=== PATIENT | female | born 1980 | race Caucasian/White ===

== ENCOUNTER 2020-06-15 09:59 | Inpatient (IN) | payer MEDICARE, MEDICAID, SELFPAY ==
--- NOTE | ~2020-06-15 | US_ITS ---
EXAMINATION: US ABDOMEN COMPLETE CLINICAL INFORMATION: Distended abdomen. COMPARISON: None TECHNIQUE: Real-time imaging of the abdominal viscera. FINDINGS: PANCREAS: Normal. ABDOMINAL AORTA: The proximal, mid, and distal segments are normal in caliber. INFERIOR VENA CAVA: Visualized portions are normal. LIVER: The liver is normal in size. The liver contour is normal. Parenchymal echogenicity is increased. No focal hepatic lesion. There is no intrahepatic biliary duct dilatation seen. GALLBLADDER: Normal. The gallbladder is physiologically distended without evidence of stones, sludge, polyps, wall thickening or pericholecystic fluid. COMMON BILE DUCT: Normal in caliber measuring 0.37 cm in diameter. RIGHT KIDNEY: Normal. No hydronephrosis. No renal calculi or focal parenchymal lesions. The kidney measures 13.2 cm in maximum dimension. LEFT KIDNEY: Normal. No hydronephrosis. No renal calculi or focal parenchymal lesions. The kidney measures 12.3 cm in maximum dimension. SPLEEN: Normal. The spleen measures 11.3 cm in maximum dimension. There is a small accessory splenule noted. FREE FLUID: None. US/US abdomen complete IMPRESSION: 1. Hepatic steatosis without any focal lesion. 2. The rest of the abdominal ultrasound is unremarkable.
--- NOTE | ~2020-06-15 | US_ITS ---
EXAMINATION: PELVIC ULTRASOUND CLINICAL INFORMATION: Pelvic pain. Rule out ovarian cyst. COMPARISON: None TECHNIQUE: Transabdominal and transvaginal pelvic ultrasound was performed. Transvaginal exam was performed for better visualization of the uterus and ovaries. FINDINGS: Exam is limited due to patient body habitus. The uterus is anteverted and retroflexed and measures 11.8 x 4.8 x 5.6 cm in dimension. No focal uterine lesion is seen. Endometrial thickness is normal measuring 0.8 cm. There are nabothian cysts in the cervix. The ovaries are normal-appearing. The right ovary measures 2.8 x 1.6 x 1.8 cm and the left ovary measures 1.9 x 1.1 x 1.7 cm. There is no fluid in the pelvis. US/US transvaginal IMPRESSION: Limited but unremarkable pelvic ultrasound.
--- NOTE | ~2020-06-15 | US_ITS ---
EXAMINATION: PELVIC ULTRASOUND CLINICAL INFORMATION: Pelvic pain. Rule out ovarian cyst. COMPARISON: None TECHNIQUE: Transabdominal and transvaginal pelvic ultrasound was performed. Transvaginal exam was performed for better visualization of the uterus and ovaries. FINDINGS: Exam is limited due to patient body habitus. The uterus is anteverted and retroflexed and measures 11.8 x 4.8 x 5.6 cm in dimension. No focal uterine lesion is seen. Endometrial thickness is normal measuring 0.8 cm. There are nabothian cysts in the cervix. The ovaries are normal-appearing. The right ovary measures 2.8 x 1.6 x 1.8 cm and the left ovary measures 1.9 x 1.1 x 1.7 cm. There is no fluid in the pelvis. US/US pelvic complete IMPRESSION: Limited but unremarkable pelvic ultrasound.
[2020-06-15 10:41] LABS: Glucose Urine UA NEG (NEG); Leukocyte Esterase Urine NEG (NEG); Nitrite Urine NEG (NEG); PH 6.5 (5.0-8.0); Urine Blood NEG (NEG); Urine Ketones NEG (NEG); Urine Protein NEG (NEG-TRACE)
[2020-06-15 10:43] LABS: Appearance Urine CLEAR; Color Urine STRAW; UPreg QC Valid YES; Urine Pregnancy NEGATIVE (NEGATIVE)
[2020-06-15 10:51] LABS: RBC Urine 0 /HPF (0); Squamous Epithelial Cell Urine 1+ /LPF; WBC Urine 0 /HPF (0-4)
[2020-06-15 10:52] LABS: Mucus Urine TRACE /LPF
[2020-06-15 11:28] VITALS: BP 199/98; PULSE 123; RESP 18; TEMP 36.8; O2SAT 97; BMI 42.0
--- NOTE | 2020-06-15 11:50 | ED.ABDPAIN ---
HPI - Abdominal Pain General Chief Complaint: Abdominal Pain Stated Complaint: ABD PAIN Time Seen by Provider: 06/15/20 11:15 Source: patient Mode of arrival: ambulatory Limitations: no limitations History of Present Illness HPI narrative: 39 yo female with past medical history of hashimotos disease, bipolar disease here with complaints of lower abdominal cramping described as contractions which have been going on for several days. No nasuea, vomiting, diarrhea, urinary symptoms, fevers, chills or vaginal discharge. Patient is concerned for . She tells me that she and her boyfriend are sexually active and they do not use contraception. Her last menses was 5 days ago however and she has had regular menses every month. MD elicited complaint: abdominal pain Related Data Allergies Allergy/AdvReac Type Severity Reaction Status Date / Time Sulfa (Sulfonamide Allergy Unknown RASH Verified 06/15/20 11:41 Antibiotics) [Sulfa (Sulfonamides)] Review of Systems Review of Systems Yes all other systems are reviewed and are negative Constitutional: Reports no additional constitutional complaints, Denies body ache(s), Denies chills, Denies fever(s), Denies headache(s) and Denies weakness Eyes: Reports no additional eye complaints and Denies change in vision Reports system reviewed and no additional complaints, except as documented, Denies dizziness, Denies headache(s), Denies nasal congestion, Denies nasal discharge and Denies neck pain Cardiovascular: Reports no additional cardiovascular complaints, Denies chest pain, Denies leg edema and Denies dyspnea Respiratory: Reports no additional respiratory complaints, Denies cough and Denies dyspnea Gastrointestinal: Reports no additional gastrointestinal complaints, Reports abdominal pain (cramping ), Denies diarrhea, Denies nausea and Denies vomiting Genitourinary: Reports no additional female genitourinary complaints and Denies urinary incontinence Musculoskeletal: Reports no additional musculoskeletal complaints, Denies back pain, Denies arthralgias, Denies joint swelling, Denies neck pain, Denies numbness and Denies tingling Skin/Breast: Reports system reviewed and no additional complaints, except as docu and Denies rash Reports system reviewed and no additional complaints, except as documented, Denies Abnormal speech present, Denies dizziness, Denies headache(s), Denies numbness, Denies tingling and Denies weakness Physical Exam Vital Signs: Vital Signs: Last Vital Signs Temp 98.5 F 02/09/21 14:14 Pulse 105 H 06/15/20 15:45 Resp 20 06/15/20 15:45 BP 155/94 H 06/15/20 15:45 Pulse Ox 96 06/15/20 15:45 Body Mass Index 42.0 Const: General: anxious Orientation/consciousness: patient oriented x3 Limitations: no limitations HENMT: Head: Yes normal to inspection Ears: hearing grossly normal bilaterally General nose exam: Normal external nose present Face and sinus: Yes normal facial exam Mouth: Normal oral and palatal mucosa present Throat: Yes posterior oropharynx normal Eyes: General: appearance normal, both eyes and all related structures Pupils: Equal, round and reactive pupils present Neck: Neck: Yes normal visual inspection Chest: Chest palpation & inspection: normal inspection of the chest Resp: Effort & Inspection: normal respiratory effort Auscultation: clear to auscultation bilaterally Cardio: Rate: regular rate Rhythm: regular rhythm Peripheral pulses: Peripheral pulses 2+ throughout GI: Other: Obese, no rebound or guarding Unable to produce tenderness on exam Inspection: Yes normal to inspection Palpation (GI): Soft to palpation Auscultation: normal bowel sounds Back/Spine/Pelvis: Thoracic/Lumbar Spine: thoracic and lumbar spine normal to inspection Skin: General skin exam: no rashes or lesions noted Neuro: General: patient oriented x3, no focal motor deficits and normal sensation to monofilament Cranial nerves: Yes Equal, round and reactive pupils present Cognition (Neuro): normal cognition Speech: No Abnormal speech present Gait exam (Neuro): Normal gait present Motor exam (neuro): 5/5 motor strength present throughout Extrem: General: Yes normal to inspection Course Course Course Narrative: 39-year-old female with a past history of bipolar disease and Molly's disease here with complaints of feeling like she may be . She tells me that she has been having abdominal cramping described as contractions for the last few days and although her menses was 4 days ago she is concerned for . She has no other associated complaints. On arrival the patient is very anxious. She is tachycardic and hypertensive and continues to perseverate on the fact that she is . Her urine was negative however when I told the patient this she continues to tell me that she is and she does not believe the urine test and that she needs an ultrasound. I spoke with patient that we would like to check some labs however she declined this until she had an ultrasound done. Nursing spoke to partner who says the patient has been off of her medication for quite some time. She is post be taking medications for bipolar but has been noncompliant. She has been depressed lately. She has lost her job recently. She was hospitalized at [facility] 1 yr ago for similar presentation. When the patient was asked about this she tells us that a month ago her psychologist Dr. Afshin don discontinued her psychiatric medications. Will check ultrasound. Labs were ordered but patient continues to decline. At this time I am concerned that the patient may be decompensated and will need a crisis evaluation. This was discussed with Nursing and after ultrasound the plan is for patient to be seen by crisis. 1400-US unremarkable and NEGATIVE for . Refusing all labs. Unhappy with results. Continues to perseverate on . Very agitated and upset. Vital signs reflect this. Plan to re-asess. Crisis consult ordered. 1630-Repeat vital signs improved. Patient pending BHN. At this time I do not feel it is safe for the patient to leave before seeing crisis. There is additional concern from her family and partner. Section 12 placed on chart. 1700-Sign out to Stacia HERNÁNDEZ pending above. MDM - Abdominal Pain Medical Records Attestation: I reviewed the patient's medical records. Lab Data Attestation: I reviewed the patient's lab results. Labs: Lab Results 06/15/20 06/15/20 Range/Units 10:31 10:31 Urine Color STRAW Urine Appearance CLEAR Urine pH 6.5 (5.0-8.0) Ur Specific [place] 1.010 (1.005-1.025) Urine Protein NEG (NEG-TRACE) MG/DL Urine Glucose (UA) NEG (NEG) MG/DL Urine Ketones NEG (NEG) MG/DL Urine Blood NEG (NEG) Urine Nitrite NEG (NEG) Ur Leukocyte Esterase NEG (NEG) Urine RBC 0 (0) /HPF Urine WBC 0 (0-4) /HPF Ur Squamous Epith Cells 1+ /LPF Urine Bacteria NONE /LPF Urine Mucus TRACE /LPF Urine Test NEGATIVE (NEGATIVE) Urine Opiates Screen Not Detected (Not Detect) Ur Barbiturates Screen Not Detected (Not Detect) Ur Phencyclidine Scrn Not Detected (Not Detect) Ur Amphetamines Screen Not Detected (Not Detect) U Benzodiazepines Scrn Not Detected (Not Detect) Urine Cocaine Screen Not Detected (Not Detect) U Marijuana (THC) Screen Not Detected (Not Detect) Imaging Data pelvic US: Attestation: I personally reviewed and interpreted this imaging study as follows: Radiologist's impression: EXAMINATION: PELVIC ULTRASOUND CLINICAL INFORMATION: Pelvic pain. Rule out ovarian cyst. COMPARISON: None TECHNIQUE: Transabdominal and transvaginal pelvic ultrasound was performed. Transvaginal exam was performed for better visualization of the uterus and ovaries. FINDINGS: Exam is limited due to patient body habitus. The uterus is anteverted and retroflexed and measures 11.8 x 4.8 x 5.6 cm in dimension. No focal uterine lesion is seen. Endometrial thickness is normal measuring 0.8 cm. There are nabothian cysts in the cervix. The ovaries are normal-appearing. The right ovary measures 2.8 x 1.6 x 1.8 cm and the left ovary measures 1.9 x 1.1 x 1.7 cm. There is no fluid in the pelvis. US/US pelvic complete IMPRESSION: Limited but unremarkable pelvic ultrasound. Discharge Plan Discharge Clinical Impression: Bipolar disease, chronic PMFSH Past Medical History Attestation statement: The following information was validated with the patient. Source: old records reviewed and nursing notes reviewed Medical History Bipolar 1 disorder Molly's disease Social History Social History Smoked in Last 30 Days: No Use of substances other than those prescribed or required for medical reasons: No Any prior treatment program specific to substance use: No Advance Directives: No Advance Directives Information Provided: Yes
--- NOTE | 2020-06-15 11:51 | PC.NURSE ---
BOYFRIEND AARON [phone]
--- NOTE | 2020-06-15 12:11 | PC.NURSE ---
Addendum entered by Sanna Martínez RN 06/15/20 12:23: FRIEND AARON ALSO REPORTS NO SEXUAL INTERCOURSE WITH PT IN PAST 10 MONTHS. Original Note: PT REFUSING BLOODWORK IT WILL HURT THE BABY . SPOKE WITH AARON, WHO ACCOMPANIED HER TO ED TODAY. HE REPORTS HER HAVING STOPPED TAKING RXS FOR BIPOLAR SEVERAL MONTHS AGO, ALSO LOST HER JOB, INCREASED DEPRESSION, NO SI STATEMENTS MADE TO HIM, GAINED A LOT OF WEIGHT, BECOMING INCREASINGLY PARANOID AND AGITATED AT HOME. FATHER IS [facility] [employer] [phone]. PT TO GO TO ULTRASOUND, BECOMING AGITATED, INSISTING THAT OF CHILD IS IMMINENT.
[2020-06-15 12:43] LABS: Amphetamine Screen Urine Not Detected (Not Detect); Barbiturates, Urine Not Detected (Not Detect); Benzodiazepines Screen Urine Not Detected (Not Detect); Cannabinoid Screen Urine Not Detected (Not Detect); Cocaine Screen Urine Not Detected (Not Detect); Opiate Screen Urine Not Detected (Not Detect); Phencyclidine Screen Urine Not Detected (Not Detect)
--- NOTE | 2020-06-15 13:23 | PC.NURSE ---
PT TRANSFERRED TO POD
[2020-06-15 14:14] VITALS: BP 166/102; PULSE 138; RESP 20; TEMP 36.9; O2SAT 97
--- NOTE | 2020-06-15 14:19 | PC.NURSE ---
Pt transferred to pod from main ED. She states she is depsite all testing thus far being negative for . BETTY Garcia in pod to discuss findings with pt. Pt states that she disagrees with diagnostics and wants a second opinion. Plan is for ED physician to see pt.
--- NOTE | 2020-06-15 14:43 | PC.NURSE ---
ED transfer report faxed and receipt of fax confirmed with N.
--- NOTE | 2020-06-15 15:24 | PC.NURSE ---
Pt refuses blood draw at this time.
[2020-06-15 15:45] VITALS: BP 155/94; PULSE 105; RESP 20; O2SAT 96
--- NOTE | 2020-06-15 17:26 | PC.NURSE ---
With pts permission, boyfriend Sukhdev updated with current status. He expressed concern regarding her not being on her bipolar meds for a period of time.
--- NOTE | 2020-06-15 17:30 | MHC.CARE ---
CARE team contacted [facility] re: referral for crisis evaluation. Per [facility] supervisor lead refinery, no clinician will be available until after 10:30pm. CARE team unable to complete assessment before then, therefore pt will remain in [facility] awaiting [facility] evaluation.
--- NOTE | 2020-06-15 18:06 | PC.NURSE ---
Pt continues to decline having her her blood drawn.
[2020-06-15 19:46] LABS: MANUAL DIFF FLAG NO
[2020-06-15 19:47] LABS: Basophils Absolute Auto 0.1 X10*3/uL (0.0-0.2); Basophils Percent Auto 0.4 % (0-2); Eosinophils Absolute Auto 0.2 X10*3/uL (0.0-0.4); Eosinophils Percent Auto 1.8 % (0-4); Hematocrit 36.7 % (37-47); Hemoglobin 12.1 g/dl (12.0-16.0); Imm Gran Abs Auto 0.09 X10*3/uL (0.00-0.03); Imm Gran Pct Auto 0.7 % (0.0-0.4); Lymphocytes Absolute Auto 3.1 X10*3/uL (1.2-4.9); Lymphocytes Percent Auto 23.2 % (20-40); Mean Corpuscular Hemoglobin 26.6 pg (27.0-33.0); Mean Corpuscular Volume 80.7 fL (80-98); Mean Platelet Volume 10.3 fL (9.4-12.3); Monocytes Absolute Auto 0.8 X10*3/uL (0.1-1.2); Monocytes Percent Auto 5.8 % (2-11); Neutrophils Absolute Auto 9.2 X10*3/uL (2.0-8.3); Neutrophils Percent Auto 68.1 % (45-73); Platelet Count 341 X10*3/uL (160-400); Red Blood Count 4.55 X10*6/uL (4.20-5.50); Red Cell Distribution Width 16.8 % (11.0-16.0); White Blood Count 13.4 X10*3/uL (4.8-10.8)
--- NOTE | 2020-06-15 20:01 | MHC.MBSS ---
Patient agreed to have her lab drawn, lab drawn/pending results, patient on phone currently, no distress reported, will continue to monitor.
[2020-06-15 20:10] LABS: Anion Gap 14 (12-20); Blood Urea Nitrogen 14 mg/dL (9-16); Calcium 9.2 mg/dL (8.4-10.2); Carbon Dioxide 27 mmol/L (22-29); Chloride 100 mmol/L (96-108); Creatinine Clr Calc Pharmacy 99.9; Estimated Glomerular Filt Rate > 60; Glucose Random 121 mg/dL (60-115); Potassium 4.3 mmol/L (3.3-5.1); Sodium 137 mmol/L (135-145)
[2020-06-15 20:12] LABS: Alanine Aminotransferase 49 U/L (0-31); Albumin Level 4.3 g/dL (3.5-5.0); Alkaline Phosphatase 90 U/L (39-117); Aspartate Amino Transferase 26 U/L (5-31); Bilirubin Direct < 0.2 mg/dL (0.0-0.5); Bilirubin Total 0.3 mg/dL (0.0-1.0); Total Protein 7.2 g/dL (6.5-8.0)
[2020-06-15 20:33] LABS: HCG Quantitative < 2 mIU/mL; Thyroid Stimulating Hormone 5.18 uIU/mL (0.32-4.0)
[2020-06-16] VITALS: BP 166/96; PULSE 101; RESP 20; TEMP 36.5; O2SAT 97
[2020-06-16 06:00] VITALS: BP 160/94; PULSE 105; RESP 18; TEMP 36.6; O2SAT 97
[2020-06-16 09:21] VITALS: BP 173/98; PULSE 110; TEMP 36.2; O2SAT 96
--- NOTE | 2020-06-16 10:32 | PC.NURSE ---
alert and oriented, denies si/hi, understands that she is not and did not focus on this at all, states her abd is distende and has been having more bm's than usual for a while, pt has eaten mult sandwiches and also a breakfast and asked for more food, requested an upper abd u/s, ZOE Moran informed and ordered, awaiting BHN re eval, pt states she is unsure why she is in the POD as she came here for abd issues,
--- NOTE | 2020-06-16 17:55 | PC.NURSE ---
Pt met with BHN. Currently in room, calm and cooperative. No complaints at this time.
--- NOTE | 2020-06-16 20:16 | PC.NURSE ---
Patient in her room, sitting on her chair, snacking, patient continues to go to bathroom multiple times, no distress reported, in good behavioral control, will continue to monitor.
--- NOTE | 2020-06-16 23:46 | ECG_ITS ---
Test Reason : PLACEMENT Blood Pressure : / mmHG Vent. Rate : 090 BPM Atrial Rate : 090 BPM P-R Int : 148 ms QRS Dur : 092 ms QT Int : 368 ms P-R-T Axes : 050 022 041 degrees QTc Int : 450 ms Normal sinus rhythm Normal ECG When compared with ECG of 04-OCT-2013 07:57, No significant change was found Referred By: Lily Pham Electronically Signed By:OLIVER NAVAS MD
[2020-06-16 23:47] LABS: COVID-19 Test Negative (Negative); IDNOW Serial# 9DD0AD1C
[2020-06-17] VITALS: BP 153/96; PULSE 90; RESP 18; TEMP 36.5; O2SAT 97
--- NOTE | 2020-06-17 00:17 | PC.NURSE ---
Patient in and out of room multiple times, continues persevered on constipation, EKG completed per M5 request result negative, COVID swabbed/result negative/care team notified. Will continue to monitor.
[2020-06-17 03:16] VITALS: BP 174/96; PULSE 90; RESP 18; TEMP 36.4; O2SAT 98
[2020-06-17 03:26] VITALS: BP 174/96; PULSE 90
[2020-06-17] MEDS: clonazePAM 0.5 MG TABLET PO (03:26)
[2020-06-17] MEDS: Lithium Carbonate 300 MG TABLET PO (03:26)
[2020-06-17] MEDS: cloNIDine HCL 0.1 MG TABLET PO (03:26)
[2020-06-17 03:44] LABS: Lithium < 0.10 mmol/L (0.60-1.20)
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
[2020-06-17 06:40] VITALS: BP 142/74; PULSE 94; RESP 18; TEMP 36.6; O2SAT 97
--- NOTE | 2020-06-17 16:53 | P.HPPS_ITS ---
HPI Chief Complaint: Madhuri Sources of Information: patient interviewed, chart reviewed and crisis/core team assessment reviewed HPI Narrative: 39 yo female, hx of bipolar disorder, PTSD, LAURYN presents in ER with reports of abdominal pain, contraction-like pain and believed she may be pregna nt. Boyfriend reports pt has been depressed, paranoid and delusional. Pt reports this is not accurate. Reports tapering medications over the past 10 months during pandemic due to concerns about weight, feeling better without medication and remaining at home, taking care of the couples pets and having her life deliberately slow down so she can relax more. Pt reports feeling fatigue and exhaustion as she has gained 40lbs over the year. She thought she was and had a negative test at home-negative vaginal and abdominal US in the ER. She was in the ER for 2 days and is upset that her symptoms were not taken seriously and she was immediately taken to the POD. Reports argument with boyfriend the day before admission with break up of a 4 year relationship. Pt believes her family, his family are forcing him to demand she take meds. I am no good unless I am on medication. Possible precipitants: pandemic and daily structure change, father has moved to [place]. Pt reports med tapers have been careful, thoughtful and done with Dr. Booker. She asks for no new trials and will consider a return to medications on an individual basis. Past Psychiatric History: IP: 2011, 2017 OP: Dr. Afshin Prieto for psychopharmacolgy; Reports she stopped psychotherapy Medical Evaluation Reviewed: Yes [facility] Medical History (Updated 06/17/20 @ 17:47 by Lin Vilchis, BRENDA) Bipolar 1 disorder delivery delivered LAURYN (generalized anxiety disorder) Molly's disease PTSD (post-traumatic stress disorder) Family History: 2 murder-suicide attempts (maternal side), personality disorder Social History: Lives with boyfrienSukhdev khan and their dogs. Lost her job when the pandemic began-stays at home and cares for the dogs. Substance History: alcohol use on occasion. Denies hx of addiction. Trauma History: Yes Diagnostics Vital Signs (24Hr): Vital Signs - 24 hr 06/17/20 00:00 06/17/20 03:16 06/17/20 03:26 Temperature 97.7 F 97.6 F Pulse Rate 90 90 90 Respiratory Rate 18 18 Blood Pressure 153/96 H 174/96 H 174/96 H Pulse Oximetry 97 98 06/17/20 06:40 Temperature 97.9 F Pulse Rate 94 Respiratory Rate 18 Blood Pressure 142/74 H Pulse Oximetry 97 Body Mass Index 42.0 Labs Results: 06/15/20 19:32 06/15/20 19:32 Labs: Laboratory Results - last 48 hr 06/15/20 06/15/20 06/15/20 19:32 19:32 19:32 WBC 13.4 H RBC 4.55 Hgb 12.1 Hct 36.7 L MCV 80.7 MCH 26.6 L MCHC 33.0 RDW 16.8 H Plt Count 341 MPV 10.3 Immature Gran % (Auto) 0.7 H Neut % (Auto) 68.1 Lymph % (Auto) 23.2 [place] % (Auto) 5.8 Eos % (Auto) 1.8 Baso % (Auto) 0.4 Lymph # (Auto) 3.1 [place] # (Auto) 0.8 Eos # (Auto) 0.2 Baso # (Auto) 0.1 Abs Immat Gran (auto) 0.09 H Absolute Neuts (auto) 9.2 H Absolute Nucleated RBC 0.000 Nucleated RBC % (auto) 0.0 Sodium 137 Potassium 4.3 Chloride 100 Carbon Dioxide 27 Anion Gap 14 BUN 14 Creatinine 0.84 Estim Creat Clear Calc 99.9 Estimated GFR > 60 Random Glucose 121 H Calcium 9.2 Total Bilirubin 0.3 Direct Bilirubin < 0.2 AST 26 ALT 49 H Alkaline Phosphatase 90 Total Protein 7.2 Albumin 4.3 TSH 5.18 H Beta HCG, Quant < 2 [place] COVID-19 (SUE) COVID-19 Clin Com 06/16/20 06/17/20 23:18 03:17 WBC RBC Hgb Hct MCV MCH MCHC RDW Plt Count MPV Immature Gran % (Auto) Neut % (Auto) Lymph % (Auto) [place] % (Auto) Eos % (Auto) Baso % (Auto) Lymph # (Auto) [place] # (Auto) Eos # (Auto) Baso # (Auto) Abs Immat Gran (auto) Absolute Neuts (auto) Absolute Nucleated RBC Nucleated RBC % (auto) Sodium Potassium Chloride Carbon Dioxide Anion Gap BUN Creatinine Estim Creat Clear Calc Estimated GFR Random Glucose Calcium Total Bilirubin Direct Bilirubin AST ALT Alkaline Phosphatase Total Protein Albumin TSH Beta HCG, Quant [place] < 0.10 L COVID-19 (SUE) Negative COVID-19 Clin Com See Note Imaging Radiology Impressions: ITS Impressions Pelvis Ultrasound 06/15/20 12:32 IMPRESSION: Limited but unremarkable pelvic ultrasound. Transvaginal US 06/15/20 12:37 IMPRESSION: Limited but unremarkable pelvic ultrasound. Abdomen Ultrasound 06/16/20 09:59 IMPRESSION: 1. Hepatic steatosis without any focal lesion. 2. The rest of the abdominal ultrasound is unremarkable. Meds/Allergies Meds Home Medications Acetaminophen (Acetaminophen 325 Mg Tablet) 650 mg PO Q6H PRN PRN Reason: Headache/Pain Mild Scale (1-3) Al Hydroxide/Mg Hydroxide (Magnesium Hydrox/Alum Hydrox 30 Ml Oral.Susp) 30 ml PO Q6H PRN PRN Reason: Heartburn/Nausea Aripiprazole (Aripiprazole 10 Mg Tablet) 10 mg PO BEDTIME PRABHJOT Clonazepam (Clonazepam 0.5 Mg Tablet) 0.5 mg PO BID PRN PRN Reason: Anxiety Last Admin: 06/17/20 03:26 Dose: 0.5 mg Documented by: Clonidine HCl (Clonidine Hcl 0.1 Mg Tablet) 0.1 mg PO Q4H PRN; Protocol PRN Reason: hypertension Last Admin: 06/17/20 03:26 Dose: 0.1 mg Documented by: Diphenhydramine HCl (Diphenhydramine Hcl 25 Mg Tablet) 50 mg PO Q4H PRN PRN Reason: agitation Haloperidol (Haloperidol 5 Mg Tablet) 5 mg PO Q4H PRN PRN Reason: agitation Levothyroxine Sodium (Levothyroxine Sodium 88 Mcg Tablet) 88 mcg PO DAILY@0600 [facility] Last Admin: 06/17/20 10:53 Dose: Not Given Documented by: [place] Carbonate ([place] Carbonate 300 Mg Capsule) 600 mg PO BEDTIME PRABHJOT Lorazepam (Lorazepam 1 Mg Tablet) 2 mg PO Q4H PRN PRN Reason: agitation Magnesium Hydroxide (Milk Of Magnesia 30 Ml Oral.Susp) 30 ml PO DAILY PRN PRN Reason: Constipation Nicotine Polacrilex (Nicotine Polacrilex 2 Mg Gum) 4 mg BUCCAL Q2H PRN PRN Reason: Nicotine Cravings Trazodone HCl (Trazodone Hcl 50 Mg Tablet) 50 mg PO BEDTIME PRN PRN Reason: Insomnia Allergies Allergies Allergy/AdvReac Type Severity Reaction Status Date / Time Sulfa (Sulfonamide Allergy Unknown RASH Verified 06/15/20 11:41 Antibiotics) [Sulfa (Sulfonamides)] Mental Status Exam Mental Status Exam Patient Appearance: Fatigued and Appropriate Patient Orientation: Person, Place, Time and Situation Level of Consciousness: Awake, Appropriate and Alert Patient Behavior: Appropriate and Cooperative Mood Description: Anxious, Angry and Sad Affect Description: Flat Patient Cognition Impaired: No Ability to Follow Directions: Good Speech Pattern: Spontaneous Speech Memory Description: Intact Hallucinations: None Delusions: Being Controlled and Paranoid Ideation Thought Process: Goal Oriented Thought Content: positive for [place] and positive for Circumstantial Depressive Symptoms: Increased Anxiety and Increased Irritability Judgement: Fair Assessment & Plan Assessment & Plan (1) LAURYN (generalized anxiety disorder): Status: Acute Code(s): F41.1 - Generalized anxiety disorder (2) PTSD (post-traumatic stress disorder): Status: Acute Code(s): F43.10 - Post-traumatic stress disorder, unspecified (3) Bipolar 1 disorder: Status: Acute Code(s): F31.9 - Bipolar disorder, unspecified Assessment and Plan: Continue current plan of care. Pt will allow levothyroxine, wants no new trials and will consider psychopharmacology. (4) Gastrointestinal distress: Status: Acute Code(s): K30 - Functional dyspepsia Assessment and Plan: -Diagnostics are negative for GI disease. Will ask for a nutritional consult, ?IBS, ? Gluten sensitive. Patient educated on: medication risk/benefits Informed Consent: further education needed Reason for continued inpatient stay Substantial Risk for: inability to function and rapid decompensation
[2020-06-17 17:15] VITALS: BP 131/77; PULSE 97; TEMP 37.1
[2020-06-17 21:24] VITALS: BP 167/81; PULSE 97; TEMP 36.1
[2020-06-18 00:11] VITALS: BP 161/91; PULSE 96
[2020-06-18] MEDS: cloNIDine HCL 0.1 MG TABLET PO (00:11)
[2020-06-18 00:14] VITALS: BP 161/91; PULSE 96; RESP 18; TEMP 36.2; O2SAT 97
[2020-06-18 04:05] VITALS: BP 135/86; PULSE 90; RESP 18; TEMP 36.6; O2SAT 96
--- NOTE | 2020-06-18 12:03 | MHC.CLN ---
CONSULT HT 62 WT 230# IBW 110#+/-10% PT IS 209% IBW INDICATES MORBID OBESITY LABS 06/15/20: RG 121 DIET RX: REGULAR-APPROPRIATE PT COMPLAINS OF EXCESSIVE HUNGER, EXCESSIVE THIRST X 1 YEAR PT REPORTS SHE HAS ADDED DAIRY TO DIET OVER LAST YEAR WITHOUT ISSUE PT C/O 6-7 BM PER DAY; HAD ABDOMINAL CRAMPING BUT RESOLVED PT REPORTED 40# WT GAIN X 1 YEAR; STATED SHE WAS TESTED FOR DM BUT IS NEGATIVE PT REFUSED VERBAL DIET EDUCATION STATING, I KNOW HOW TO EAT RIGHT. NOTED DX JAYDEN DZ HOWEVER PT STATES SHE HAS STOPPED TAKING MEDS INCLUDING PSYCH MEDS THAT CAN INCREASE HUNGER OVER PAST YEAR PT RECEPTIVE TO IBS HANDOUT AND LACTOSE INTOLERANCE HANDOUT RD NAME GIVEN FOR FUTURE FOLLOW UP AND QUESTIONS
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
[2020-06-18 21:53] VITALS: BP 186/86; PULSE 96; TEMP 37.1; O2SAT 97
[2020-06-19 06:00] VITALS: BP 157/85; PULSE 100; TEMP 36.7; O2SAT 98
[2020-06-19 18:00] VITALS: RESP 16
--- NOTE | 2020-06-19 21:31 | PC.NURSE ---
[facility] called reporting that she was calling them
--- NOTE | 2020-06-19 21:44 | PC.NURSE ---
This typewriter ribbon winder attempted 3 times to get patient to allow vital signs to be taken; each time patient refused. Patient stated I wouldn't have a high blood pressure if I wasn't here in the hospital. Of course my pressures are going to be high, I don't want to be here . Patient refused her Abilify 10 mg po and [place] Carbonate 600 mg po that were scheduled for HS.
--- NOTE | 2020-06-19 22:21 | HO.PSYCHPN ---
Subjective Subjective Date of Service: 06/21/20 Reason For Visit: Madhuri Subjective Notes: 3 Day Interim History: Met with patient who expressed frustration and anxiety for admission. Pt repeatedly asked why she was admitted and had difficulty accepting that typewriter operator automatic did not know more of the story than was documented in chart. Pt shared that her boyfriend has been influenced by his family to see her as psychiatrically ill. She says that family found out she'd stopped taking medications, overreacted and pushed her boyfriend into believing that she needed inpt admission. Regarding her belief she's , Pt explained the various reasons she thought she was (gained 40bls; had neg UPT during last ); she seems to imply she now realizes that she's not but says either way, this should not be enough of a reason for her to be sent to a psych unit. Pt continued to ask why she's been admitted and that it is very unfair for hospital to just take the word of her boyfriend. Proposal Engineer offered pt 3 day notice, but she declined saying the last time she signed one (2007) she ended up being involuntarily committed. She denies any hx of SI; she denies AVH. She acknowledges depression but says mostly due to being locked on unit. Pt reports she was diagnosed with Bipolar disorder in 2007 but in hindsight, she thinks her behaviors were more likely attributed to hx of trauma. She wanted to get off meds to see how her body would handle it and she says she's been fine. However, pt reports that over the past month, she's had a high libido and would masturbate several times a day; she also alludes to some poor sleep, saying she's up at night eating, but also says she was sleeping well over past months too. Pt asked if typewriter operator automatic would call her boyfriend to find out his reasoning, to which typewriter operator automatic agreed. However, later on in day, pt said she wanted to listen in on conversation. Proposal Engineer then explained it would be best for patient and treatment team to have a family meeting next week. Pt was ambivalent about this but accepted this plan. She reports poor sleep last night saying it's due to being uncomfortable on unit. typewriter operator automatic discussed HtN and pt said she'd take anti-hypertensives; however despite dx of Molly's, she does not want to restart levothyroxine Medication Compliance: No Attending Groups: Yes Mental Status Exam Mental Status Exam Patient Appearance: Appropriate Patient Orientation: Person, Place and Time Level of Consciousness: Awake and Appropriate Patient Behavior: Anxious and Good Eye Contact Mood Description: Anxious Affect Description: Anxious Ability to Follow Directions: Fair Speech Pattern: Clear and Appropriate Hallucinations: None Delusions: Present (not sure to what degree pt believes she's ) Thought Process: Rumination and Goal Oriented Thought Content: positive for Perseveration (on unfairness of admission) Judgement: Poor Diagnostics Vital Signs (24Hr): Vital Signs - 24 hr 06/19/20 06:00 06/19/20 18:00 Temperature 98.1 F Pulse Rate 100 Respiratory Rate 16 Blood Pressure 157/85 H Pulse Oximetry 98 Body Mass Index 42.0 Labs Results: 06/15/20 19:32 06/15/20 19:32 Imaging Radiology Impressions: ITS Impressions Pelvis Ultrasound 06/15/20 12:32 IMPRESSION: Limited but unremarkable pelvic ultrasound. Transvaginal US 06/15/20 12:37 IMPRESSION: Limited but unremarkable pelvic ultrasound. Abdomen Ultrasound 06/16/20 09:59 IMPRESSION: 1. Hepatic steatosis without any focal lesion. 2. The rest of the abdominal ultrasound is unremarkable. Medications Medications Current Medications Generic Name Dose Route Start Last Admin Trade Name Freq PRN Reason Stop Dose Admin Acetaminophen 650 mg 06/17/20 02:58 Acetaminophen 325 Mg Tablet PO Q6H PRN Headache/Pain Mild Scale (1-3) Al Hydroxide/Mg Hydroxide 30 ml 06/17/20 02:58 Magnesium Hydrox/Alum Hydrox 30 Ml Oral.Susp PO Q6H PRN Heartburn/Nausea Aripiprazole 10 mg 06/17/20 21:00 06/19/20 21:42 Aripiprazole 10 Mg Tablet PO Not Given BEDTIME PRABHJOT Clonazepam 0.5 mg 06/17/20 02:58 06/17/20 03:26 Clonazepam 0.5 Mg Tablet PO 0.5 mg BID PRN Administration Anxiety Clonidine HCl 0.1 mg 06/17/20 02:58 06/18/20 00:11 Clonidine Hcl 0.1 Mg Tablet PO 0.1 mg Q4H PRN Administration hypertension Protocol Diphenhydramine HCl 50 mg 02/11/21 02:58 Diphenhydramine Hcl 25 Mg Tablet PO Q4H PRN agitation Haloperidol 5 mg 06/17/20 02:58 Haloperidol 5 Mg Tablet PO Q4H PRN agitation Levothyroxine Sodium 88 mcg 06/17/20 06:00 06/19/20 06:38 Levothyroxine Sodium 88 Mcg Tablet PO Not Given DAILY@0600 PRABHJOT [place] Carbonate 600 mg 06/17/20 21:00 06/19/20 21:42 [place] Carbonate 300 Mg Capsule PO Not Given BEDTIME PRABHJOT Lorazepam 2 mg 06/17/20 02:58 Lorazepam 1 Mg Tablet PO Q4H PRN agitation Magnesium Hydroxide 30 ml 06/17/20 02:58 Milk Of Magnesia 30 Ml Oral.Susp PO DAILY PRN Constipation Nicotine Polacrilex 4 mg 06/17/20 02:58 Nicotine Polacrilex 2 Mg Gum BUCCAL Q2H PRN Nicotine Cravings Trazodone HCl 50 mg 06/17/20 02:58 Trazodone Hcl 50 Mg Tablet PO BEDTIME PRN Insomnia Allergies Allergies Allergy/AdvReac Type Severity Reaction Status Date / Time Sulfa (Sulfonamide Allergy Unknown RASH Verified 06/15/20 11:41 Antibiotics) [Sulfa (Sulfonamides)] Assessment & Plan Impression: pt with his of mood disorder. Pt is perseverant on unfairness of admission and struggles to accept writers answers. However, she remains logical and linear. She denies SI, AVH and is overall organized in behaviors. She seems to imply she now realizes she's not , but this is not clear. It is unclear what other behaviors occurred prior to admission to result in admission to unit and collateral will be important. Pt wants typewriter operator automatic to obtain collateral from boyfriend but is anxious that typewriter operator automatic will believe him, even if he lies, over her; typewriter operator automatic acknowledges her anxiety over this and suggests team planned family meeting, to which pt accepts. dx provisional dx bipolar disorder ptsd LAURYN by history plan: continue current tx plan pt offered 3 day notice, but has not signed primary team to discuss family meeting Greater than 50% of the session was spent on counseling and/or coordination of care Reason for contiued inpatient stay Substantial Risk for: med/psych decompensation
[2020-06-20 06:40] VITALS: BP 165/68; PULSE 89; RESP 16; TEMP 36.6; O2SAT 97
--- NOTE | 2020-06-20 11:03 | HO.PSYCHPN ---
Subjective Subjective Date of Service: 06/21/20 Reason For Visit: Madhuri Subjective Notes: 3 Day Interim History: Pt reports sleeping last night Pt lying in bed. She asks marketing copywriter to call her boyfriend but wants to be able to listen to conversation while its happening. Director Of Event Management explains that this may impede boyfriend from sharing and that if she wants to be involved, marketing copywriter will defer to primary team to set up family meeting. Pt was upset with this answer and repeatedly asked why and cited the unfairness. Pt would not accept any answer marketing copywriter gave but continued to ask why; she would also return to why she is on unit in first place but again, would not accept any answer marketing copywriter offered. Director Of Event Management eventually decided it was best to end discussion for the time being. An hour later, pt came to desk to ask marketing copywriter to call boyfriend and said she'd agree to sign a TRAVIS. However, once reading the TRAVIS she said she would not sign and again repeatedly attempted to engage marketing copywriter in circular discussion of why marketing copywriter would not have family meeting with boyfriend now. Director Of Event Management again decided it best to end conversation. Medication Compliance: No Attending Groups: No Mental Status Exam Mental Status Exam Narrative: Patient Appearance: Appropriate Patient Orientation: Person, Place and Time Level of Consciousness: Awake and Appropriate Patient Behavior: Anxious and Good Eye Contact Mood Description: Anxious Affect Description: Anxious Ability to Follow Directions: Fair Speech Pattern: Clear and Appropriate Hallucinations: None Delusions: Present (not sure to what degree pt believes she's ) Thought Process: Rumination and Goal Oriented Thought Content: positive for Perseveration (on unfairness of admission) Judgement/insight: Poor Diagnostics Vital Signs (24Hr): Vital Signs - 24 hr 06/19/20 18:00 06/20/20 06:40 Temperature 98 F Pulse Rate 89 Respiratory Rate 16 16 Blood Pressure 165/68 H Pulse Oximetry 97 Body Mass Index 42.0 Labs Results: 06/15/20 19:32 06/15/20 19:32 Imaging Radiology Impressions: ITS Impressions Pelvis Ultrasound 06/15/20 12:32 IMPRESSION: Limited but unremarkable pelvic ultrasound. Transvaginal US 06/15/20 12:37 IMPRESSION: Limited but unremarkable pelvic ultrasound. Abdomen Ultrasound 06/16/20 09:59 IMPRESSION: 1. Hepatic steatosis without any focal lesion. 2. The rest of the abdominal ultrasound is unremarkable. Medications Medications Current Medications Generic Name Dose Route Start Last Admin Trade Name Freq PRN Reason Stop Dose Admin Acetaminophen 650 mg 06/17/20 02:58 Acetaminophen 325 Mg Tablet PO Q6H PRN Headache/Pain Mild Scale (1-3) Al Hydroxide/Mg Hydroxide 30 ml 06/17/20 02:58 Magnesium Hydrox/Alum Hydrox 30 Ml Oral.Susp PO Q6H PRN Heartburn/Nausea Aripiprazole 10 mg 06/17/20 21:00 06/19/20 21:42 Aripiprazole 10 Mg Tablet PO Not Given BEDTIME PRABHJOT Clonazepam 0.5 mg 06/17/20 02:58 06/17/20 03:26 Clonazepam 0.5 Mg Tablet PO 0.5 mg BID PRN Administration Anxiety Clonidine HCl 0.1 mg 06/17/20 02:58 06/18/20 00:11 Clonidine Hcl 0.1 Mg Tablet PO 0.1 mg Q4H PRN Administration hypertension Protocol Diphenhydramine HCl 50 mg 06/17/20 02:58 Diphenhydramine Hcl 25 Mg Tablet PO Q4H PRN agitation Haloperidol 5 mg 06/17/20 02:58 Haloperidol 5 Mg Tablet PO Q4H PRN agitation Levothyroxine Sodium 88 mcg 06/17/20 06:00 06/20/20 06:35 Levothyroxine Sodium 88 Mcg Tablet PO Not Given DAILY@0600 PRABHJOT [place] Carbonate 600 mg 06/17/20 21:00 06/19/20 21:42 [place] Carbonate 300 Mg Capsule PO Not Given BEDTIME PRABHJOT Lorazepam 2 mg 06/17/20 02:58 Lorazepam 1 Mg Tablet PO Q4H PRN agitation Magnesium Hydroxide 30 ml 06/17/20 02:58 Milk Of Magnesia 30 Ml Oral.Susp PO DAILY PRN Constipation Nicotine Polacrilex 4 mg 06/17/20 02:58 Nicotine Polacrilex 2 Mg Gum BUCCAL Q2H PRN Nicotine Cravings Trazodone HCl 50 mg 06/17/20 02:58 Trazodone Hcl 50 Mg Tablet PO BEDTIME PRN Insomnia Allergies Allergies Allergy/AdvReac Type Severity Reaction Status Date / Time Sulfa (Sulfonamide Allergy Unknown RASH Verified 06/15/20 11:41 Antibiotics) [Sulfa (Sulfonamides)] Assessment & Plan Impression: pt with his of mood disorder. Pt is perseverant on unfairness of admission and struggles to accept writers answers. However, she remains logical and linear. She denies SI, AVH and is overall organized in behaviors. She seems to imply she now realizes she's not , but this is not clear. It is unclear what other behaviors occurred prior to admission to result in admission to unit and collateral will be important. Pt wants marketing copywriter to obtain collateral from boyfriend but is anxious that marketing copywriter will believe him, even if he lies, over her; marketing copywriter acknowledges her anxiety over this and suggests team planned family meeting. Pt remains frustrated and focused on unfairness of admission dx provisional dx bipolar disorder ptsd LAURYN by history plan: continue current tx plan pt offered 3 day notice, but has not signed primary team to discuss family meeting Greater than 50% of the session was spent on counseling and/or coordination of care Reason for contiued inpatient stay Substantial Risk for: med/psych decompensation
[2020-06-20 18:00] VITALS: RESP 16
[2020-06-21 04:50] VITALS: RESP 18
--- NOTE | 2020-06-21 18:16 | HO.PSYCHPN ---
Subjective Subjective Date of Service: 06/21/20 Reason For Visit: Madhuri Interim History: Pt reports she slept fairly well last night pt remains perseverant on unfairness of admission and cannot tolerate discussion of much else. She accepts that she'll need to discuss this with her primary team tomorrow. pt upset toward roommate today who was playing loud music. Roommate changed rooms Medication Compliance: No Attending Groups: No Mental Status Exam Mental Status Exam Narrative: Patient Appearance: Appropriate Patient Orientation: Person, Place and Time Level of Consciousness: Awake and Appropriate Patient Behavior: Anxious and Good Eye Contact Mood Description: Anxious Affect Description: Anxious Ability to Follow Directions: Fair Speech Pattern: Clear and Appropriate Hallucinations: None Delusions: Present (not sure to what degree pt believes she's ) Thought Process: Rumination and Goal Oriented Thought Content: positive for Perseveration (on unfairness of admission) Judgement/insight: Poor Diagnostics Vital Signs (24Hr): Vital Signs - 24 hr 06/21/20 04:50 Respiratory Rate 18 Body Mass Index 42.0 Labs Results: 06/15/20 19:32 06/15/20 19:32 Imaging Radiology Impressions: ITS Impressions Pelvis Ultrasound 06/15/20 12:32 IMPRESSION: Limited but unremarkable pelvic ultrasound. Transvaginal US 06/15/20 12:37 IMPRESSION: Limited but unremarkable pelvic ultrasound. Abdomen Ultrasound 06/16/20 09:59 IMPRESSION: 1. Hepatic steatosis without any focal lesion. 2. The rest of the abdominal ultrasound is unremarkable. Medications Medications Current Medications Generic Name Dose Route Start Last Admin Trade Name Freq PRN Reason Stop Dose Admin Acetaminophen 650 mg 06/17/20 02:58 Acetaminophen 325 Mg Tablet PO Q6H PRN Headache/Pain Mild Scale (1-3) Al Hydroxide/Mg Hydroxide 30 ml 06/17/20 02:58 Magnesium Hydrox/Alum Hydrox 30 Ml Oral.Susp PO Q6H PRN Heartburn/Nausea Aripiprazole 10 mg 06/17/20 21:00 06/20/20 22:17 Aripiprazole 10 Mg Tablet PO Not Given BEDTIME PRABHJOT Clonazepam 0.5 mg 06/17/20 02:58 06/17/20 03:26 Clonazepam 0.5 Mg Tablet PO 0.5 mg BID PRN Administration Anxiety Clonidine HCl 0.1 mg 06/17/20 02:58 06/18/20 00:11 Clonidine Hcl 0.1 Mg Tablet PO 0.1 mg Q4H PRN Administration hypertension Protocol Diphenhydramine HCl 50 mg 06/17/20 02:58 Diphenhydramine Hcl 25 Mg Tablet PO Q4H PRN agitation Haloperidol 5 mg 06/17/20 02:58 Haloperidol 5 Mg Tablet PO Q4H PRN agitation Levothyroxine Sodium 88 mcg 06/17/20 06:00 06/21/20 09:51 Levothyroxine Sodium 88 Mcg Tablet PO Not Given DAILY@0600 PRABHJOT [place] Carbonate 600 mg 06/17/20 21:00 06/20/20 22:17 [place] Carbonate 300 Mg Capsule PO Not Given BEDTIME PRABHJOT Lorazepam 2 mg 06/17/20 02:58 Lorazepam 1 Mg Tablet PO Q4H PRN agitation Magnesium Hydroxide 30 ml 06/17/20 02:58 Milk Of Magnesia 30 Ml Oral.Susp PO DAILY PRN Constipation Nicotine Polacrilex 4 mg 06/17/20 02:58 Nicotine Polacrilex 2 Mg Gum BUCCAL Q2H PRN Nicotine Cravings Trazodone HCl 50 mg 06/17/20 02:58 Trazodone Hcl 50 Mg Tablet PO BEDTIME PRN Insomnia Allergies Allergies Allergy/AdvReac Type Severity Reaction Status Date / Time Sulfa (Sulfonamide Allergy Unknown RASH Verified 06/15/20 11:41 Antibiotics) [Sulfa (Sulfonamides)] Assessment & Plan Impression: pt with his of mood disorder. Pt is perseverant on unfairness of admission and struggles to accept writers answers. However, she remains logical and linear. She denies SI, AVH and is overall organized in behaviors. She seems to imply she now realizes she's not , but this is not clear. It is unclear what other behaviors occurred prior to admission to result in admission to unit and collateral will be important. Pt wants tech writer to obtain collateral from boyfriend but is anxious that tech writer will believe him, even if he lies, over her; tech writer acknowledges her anxiety over this and suggests team planned family meeting. Pt remains frustrated and focused on unfairness of admission dx provisional dx bipolar disorder ptsd LAURYN by history plan: continue current tx plan pt offered 3 day notice, but has not signed primary team to discuss family meeting Greater than 50% of the session was spent on counseling and/or coordination of care Reason for contiued inpatient stay Substantial Risk for: med/psych decompensation
--- NOTE | 2020-06-22 18:20 | P.PNPSI_ITS ---
Subjective Subjective Date of Service: 06/22/20 Reason For Visit: Madhuri Subjective Notes: Conditional Voluntary Interim History: - Met with Amparo [place] ANDA and underwriter. Continues to refuse treatment, medications. -Has consulted with legal services. -Has called police twice over the weekend to do a wellness check on her daughter, who ex- has joint custody of as he has limited contact with pt due to her admission. Discussed with pt's out patient MD, Dr. Booker. Pt tapered [place] over the past several months in a careful slow pattern with supervision. Pt decided to stop Abilify on her own without Dr. Villanueva knowledge. Pt has claimed to be feeling well. Family has not contacted Dr. Booker with concerns. Pt had asked for a meeting with partner which was scheduled however pt cancelled this. By history pt is unable to work due to illness, she becomes paranoid quickly and seems to have severed her most important relationships. When well she is described as reasonable and rational. Dr. Afshin Prieto believes pt is at high risk for suicide- by history she has engaged in risky behaviors that have jeopardized her safety. -Reviewed with pt. -Confrontational as to why she was admitted. -Collateral contact today with pt's psychiatrist, Dr. Afshin Prieto, reviewed along with concerns for her safety and well-being. Pt is dismissive, paranoid and unable to have a balanced discussion-states PTSD is exacerbated-pt's curse at her, accused team of false documentation , believes there will be a superior court judge who is an impersonator of a superior court judge-like the one she had for custody hearing and the one she had for previous civil commitment. Believes bipolar diagnosis is incorrect, previous admissions for treatment are false and that she is being controlled without options. Refuses medicines, treatment, refuses to sign a three day notice. Agrees to a couples meeting which Amparo DE ANDA will schedule for 06/23 (ex-partner works late on weekdays). Discussed room-mate reporting pt is purging-pt denies this sx. Review of Systems Gastrointestinal: Reports other (denies current symptoms) Genitourinary: Reports change in libido Reports behavioral changes Psychiatric: Reports abnormal sleep pattern, Reports anxiety, Reports behavioral changes, Reports change in appetite, Reports change in libido, Reports depression, Reports difficulty concentrating, Reports hopelessness, Reports irritability, Reports anhedonia, Reports mood swings and Reports paranoia Endocrine: Reports change in libido Mental Status Exam Mental Status Exam Patient Appearance: Appropriate Patient Orientation: Person, Place, Time and Situation Level of Consciousness: Awake and Alert Patient Behavior: Guarded, Talkative, Suspicious, Restless, Anxious, Fearful, Resistive to Care, Avoidant, Fatigued, Distractible, Isolative, Good Eye Contact and Uncooperative Mood Description: Suspicious, Depressed, Anxious, Angry and Apprehensive Affect Description: Labile Patient Cognition Impaired: Yes Ability to Follow Directions: Poor Speech Pattern: Perseverating, Spontaneous Speech and Pressured Memory Description: Episodic Impaired Hallucinations: None Delusions: Being Controlled and Paranoid Ideation Thought Process: Racing, Illogical, Distracted, Rumination, Goal Oriented and Linear Thought Content: positive for Circumstantial Depressive Symptoms: Increased Anxiety, Increased Irritability, Difficulty Sleeping, Changes in Appetite, Loss of Int. in Activity, Unexplained Stomach Pain and Difficulty Concentrating Abnormal Motor Activity Signs and Symptoms: Restlessness Judgement: Poor Diagnostics Vital Signs (24Hr): Body Mass Index 42.0 Labs Results: 06/15/20 19:32 06/15/20 19:32 Imaging Radiology Impressions: ITS Impressions Pelvis Ultrasound 06/15/20 12:32 IMPRESSION: Limited but unremarkable pelvic ultrasound. Transvaginal US 06/15/20 12:37 IMPRESSION: Limited but unremarkable pelvic ultrasound. Abdomen Ultrasound 06/16/20 09:59 IMPRESSION: 1. Hepatic steatosis without any focal lesion. 2. The rest of the abdominal ultrasound is unremarkable. Medications Medications Current Medications Generic Name Dose Route Start Last Admin Trade Name Jhonyq PRN Reason Stop Dose Admin Acetaminophen 650 mg 06/17/20 02:58 Acetaminophen 325 Mg Tablet PO Q6H PRN Headache/Pain Mild Scale (1-3) Al Hydroxide/Mg Hydroxide 30 ml 06/17/20 02:58 Magnesium Hydrox/Alum Hydrox 30 Ml Oral.Susp PO Q6H PRN Heartburn/Nausea Aripiprazole 10 mg 06/17/20 21:00 06/21/20 20:09 Aripiprazole 10 Mg Tablet PO Not Given BEDTIME PRABHJOT Clonidine HCl 0.1 mg 06/17/20 02:58 06/18/20 00:11 Clonidine Hcl 0.1 Mg Tablet PO 0.1 mg Q4H PRN Administration hypertension Protocol Diphenhydramine HCl 50 mg 06/17/20 02:58 Diphenhydramine Hcl 25 Mg Tablet PO Q4H PRN agitation Haloperidol 5 mg 06/17/20 02:58 Haloperidol 5 Mg Tablet PO Q4H PRN agitation Levothyroxine Sodium 88 mcg 06/17/20 06:00 06/22/20 08:36 Levothyroxine Sodium 88 Mcg Tablet PO Not Given DAILY@0600 PRABHJOT [place] Carbonate 600 mg 06/17/20 21:00 06/21/20 20:09 [place] Carbonate 300 Mg Capsule PO Not Given BEDTIME PRABHJOT Magnesium Hydroxide 30 ml 06/17/20 02:58 Milk Of Magnesia 30 Ml Oral.Susp PO DAILY PRN Constipation Nicotine Polacrilex 4 mg 06/17/20 02:58 Nicotine Polacrilex 2 Mg Gum BUCCAL Q2H PRN Nicotine Cravings Trazodone HCl 50 mg 06/17/20 02:58 Trazodone Hcl 50 Mg Tablet PO BEDTIME PRN Insomnia Allergies Allergies Allergy/AdvReac Type Severity Reaction Status Date / Time Sulfa (Sulfonamide Allergy Unknown RASH Verified 06/15/20 11:41 Antibiotics) [Sulfa (Sulfonamides)] Assessment & Plan Assessment & Plan (1) PTSD (post-traumatic stress disorder): Status: Acute Code(s): F43.10 - Post-traumatic stress disorder, unspecified (2) LAURYN (generalized anxiety disorder): Status: Acute Code(s): F41.1 - Generalized anxiety disorder (3) Bipolar 1 disorder: Status: Acute Code(s): F31.9 - Bipolar disorder, unspecified Assessment and Plan: -Will continue to discuss with pt. -Consideration for civil commitment application. Greater than 50% of the session was spent on counseling and/or coordination of care Reason for contiued inpatient stay Substantial Risk for: inability to function and rapid decompensation
--- NOTE | 2020-06-23 17:53 | HO.PSYCHPN ---
Subjective Subjective Date of Service: 06/23/20 Reason For Visit: Robert Subjective Notes: Conditional Voluntary Interim History: Meeting with pt, ex-partner Josefina Santizo [facility]. Sukhdev was supportive, open with pt, reviewed symptoms he has seen at their home and deterioration over the past several months. He reports observations of increasing robert, paranoia, mood swings, feeling others are conspiring to hurt her (Sukhdev's family), issues with -both refer to an incident in Jan where pt believes she may have miscarried, asked Sukhdev not to attend a libertarian with [place] . Sukhdev references several negative tests and not being informed pt was coming off medicine. Pt believes she was in Jan and was/is having sx. Pt has sent angry text messages to Sukhdev's mother, sister and father's girlfriend, Ryan. She has become more isolative, refused holiday gatherings, stays in bed much of the time, does not clean their home, has stopped consistent showering, yoga, walking and walking the dogs. Sukhdev brought pt to ER as he felt she was overly focused on with negative testing, sx of contractions. Sukhdev reports he has talked with pt's father and they have discussed the history of current symptoms-this being the longest time pt has been off medications and although pt has no history of violence or self harm, current behaviors in the home are unstable. Sukhdev is willing to discuss his concerns with the court. He encouraged pt to re-start medications so they could re-establish their life together. He was clear in letting pt know he cares for her and wants her to be well so they may regain what has been lost as a couple. Pt was unable to hear any positive messages from this discussion. She expressed much sadness, grief and anger with feeling controlled, confronted on all issues discussed, always needing to be pretty, proper, starving . She wants just to be herself without medications. She was unable to accept any support or feedback from team and was confrontive on all issues as well. She constantly references rights and not being treated well when initially seen. She asks for MD villanueva of diagnostics completed in the ER and exhibits a delusional thinking pattern. Medication Compliance: No Side effects from medications: No Attending Groups: No Review of Systems Review of Systems Yes all other systems are reviewed and are negative (denies, ) Gastrointestinal: Reports other (Sukhdev reports pt was overeating, drinking excess fluids ) Genitourinary: Reports change in libido Reports behavioral changes Psychiatric: Reports abnormal sleep pattern, Reports anxiety, Reports behavioral changes, Reports change in appetite, Reports change in libido, Reports depression, Reports difficulty concentrating, Reports hopelessness, Reports irritability, Reports anhedonia, Reports mood swings, Reports paranoia, Reports hallucinations, Reports homicidal ideation (denies HI plan or intent) and Reports suicidal ideation (denies SI plan or intent) Endocrine: Reports change in libido Mental Status Exam Mental Status Exam Patient Appearance: Fatigued and Disheveled Patient Orientation: Person, Place, Time and Situation Level of Consciousness: Awake, Restless and Alert Patient Behavior: Guarded, Talkative, Suspicious, Aggressive, Anxious, Fearful, Resistive to Care, Avoidant, Fatigued, Distractible, Isolative, Good Eye Contact and Uncooperative Mood Description: Suspicious, Depressed, Fearful, Hostile, Anxious, Labile, Angry, Sad, Nervous, Apprehensive and Expansive Affect Description: Labile and Angry Patient Cognition Impaired: Yes Ability to Follow Directions: Poor Speech Pattern: Perseverating, Spontaneous Speech, Cofabulation, Rapid, Excessive, Loud and Pressured Memory Description: Remote Impaired, Dental Intern Impaired and Episodic Impaired Hallucinations: None Delusions: Being Controlled and Paranoid Ideation Thought Process: Racing, Distracted, Rumination and Linear Thought Content: positive for Flight of Ideas, positive for Racing, positive for Obsessional Thoughts, positive for Circumstantial, positive for Linear, positive for Perseveration, positive for Preoccupation, positive for Tangential and positive for Evasive Depressive Symptoms: Increased Anxiety, Insomnia, Increased Irritability, Difficulty Sleeping, Changes in Appetite, Sleeping More Than Usual, Loss of Int. in Activity, Feelings of Worthlessness, Significant Weight Gain, Hopelessness, Isolating-Friends/Family, Feelings of Guilt, Unhappiness, Increased Fatigue, Unexplained Stomach Pain, Low Self Esteem, Loss of Energy and Difficulty Concentrating Abnormal Motor Activity Signs and Symptoms: Agitation and Restlessness Judgement: Poor Diagnostics Vital Signs (24Hr): Body Mass Index 42.0 Labs Results: 06/15/20 19:32 06/15/20 19:32 Imaging Radiology Impressions: ITS Impressions Pelvis Ultrasound 06/15/20 12:32 IMPRESSION: Limited but unremarkable pelvic ultrasound. Transvaginal US 06/15/20 12:37 IMPRESSION: Limited but unremarkable pelvic ultrasound. Abdomen Ultrasound 06/16/20 09:59 IMPRESSION: 1. Hepatic steatosis without any focal lesion. 2. The rest of the abdominal ultrasound is unremarkable. Medications Medications Current Medications Generic Name Dose Route Start Last Admin Trade Name Freq PRN Reason Stop Dose Admin Acetaminophen 650 mg 06/17/20 02:58 Acetaminophen 325 Mg Tablet PO Q6H PRN Headache/Pain Mild Scale (1-3) Al Hydroxide/Mg Hydroxide 30 ml 06/17/20 02:58 Magnesium Hydrox/Alum Hydrox 30 Ml Oral.Susp PO Q6H PRN Heartburn/Nausea Aripiprazole 10 mg 06/17/20 21:00 06/22/20 21:45 Aripiprazole 10 Mg Tablet PO Not Given BEDTIME PRABHJOT Clonidine HCl 0.1 mg 06/17/20 02:58 06/18/20 00:11 Clonidine Hcl 0.1 Mg Tablet PO 0.1 mg Q4H PRN Administration hypertension Protocol Diphenhydramine HCl 50 mg 06/17/20 02:58 Diphenhydramine Hcl 25 Mg Tablet PO Q4H PRN agitation Haloperidol 5 mg 06/17/20 02:58 Haloperidol 5 Mg Tablet PO Q4H PRN agitation Levothyroxine Sodium 88 mcg 06/17/20 06:00 06/23/20 08:47 Levothyroxine Sodium 88 Mcg Tablet PO Not Given DAILY@0600 PRABHJOT [place] Carbonate 600 mg 06/17/20 21:00 06/22/20 21:46 [place] Carbonate 300 Mg Capsule PO Not Given BEDTIME PRABHJOT Magnesium Hydroxide 30 ml 06/17/20 02:58 Milk Of Magnesia 30 Ml Oral.Susp PO DAILY PRN Constipation Nicotine Polacrilex 4 mg 06/17/20 02:58 Nicotine Polacrilex 2 Mg Gum BUCCAL Q2H PRN Nicotine Cravings Trazodone HCl 50 mg 06/17/20 02:58 Trazodone Hcl 50 Mg Tablet PO BEDTIME PRN Insomnia Allergies Allergies Allergy/AdvReac Type Severity Reaction Status Date / Time Sulfa (Sulfonamide Allergy Unknown RASH Verified 06/15/20 11:41 Antibiotics) [Sulfa (Sulfonamides)] Assessment & Plan Assessment & Plan (1) PTSD (post-traumatic stress disorder): Status: Acute Code(s): F43.10 - Post-traumatic stress disorder, unspecified (2) LAURYN (generalized anxiety disorder): Status: Acute Code(s): F41.1 - Generalized anxiety disorder (3) Bipolar 1 disorder: Status: Acute Code(s): F31.9 - Bipolar disorder, unspecified Greater than 50% of the session was spent on counseling and/or coordination of care Reason for contiued inpatient stay Substantial Risk for: inability to function and rapid decompensation
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
--- NOTE | 2020-06-24 18:30 | HO.PSYCHPN ---
Subjective Subjective Date of Service: 06/24/20 Reason For Visit: Madhuri Subjective Notes: Legal Status (Section VII) Interim History: CV retracted today. Civil commitment paperwork filed. Pt remains labile, angry, confrontive and paranoid. Brief interactions where she yelled, confronted and evidenced her fear and paranoia. Several complaints-reported room-mate did not have proper clothing on (she had on shorts and 2 shirts). When addressed, pt could not Medication Compliance: No Side effects from medications: No Attending Groups: No Review of Systems Reports behavioral changes and Reports confusion Psychiatric: Reports anxiety, Reports behavioral changes, Reports change in appetite, Reports confusion, Reports difficulty concentrating, Reports hopelessness, Reports irritability, Reports anhedonia, Reports mood swings, Reports panic attacks and Reports paranoia Mental Status Exam Mental Status Exam Patient Appearance: Disheveled Patient Orientation: Person, Place, Time and Situation Level of Consciousness: Restless and Alert Patient Behavior: Guarded, Talkative, Hyperactive, Suspicious, Aggressive, Restless, Belligerent, Verbal Threats, Anxious, Fearful, Resistive to Care, Avoidant, Distractible, Isolative, Good Eye Contact and Impulsive Mood Description: Suspicious, Withdrawn, Depressed, Fearful, Hostile, Anxious, Labile, Angry, Sad, Nervous, Apprehensive and Expansive Affect Description: Labile and Angry Patient Cognition Impaired: Yes Ability to Follow Directions: Poor Speech Pattern: Spontaneous Speech, Rapid, Loud and Pressured Memory Description: Immediate Impaired, Episodic Impaired, Recent Impaired, Immediate Intact and Working Impaired Delusions: Paranoid Ideation Thought Process: Racing, Illogical, Distracted and Rumination Thought Content: positive for Racing, positive for Circumstantial and positive for Perseveration Depressive Symptoms: Increased Anxiety, Difficulty Sleeping, Changes in Appetite, Loss of Int. in Activity, Feelings of Worthlessness, Hopelessness, Isolating-Friends/Family, Unhappiness, Low Self Esteem, Loss of Energy and Difficulty Concentrating Abnormal Motor Activity Signs and Symptoms: Agitation and Restlessness Judgement: Poor Diagnostics Vital Signs (24Hr): Body Mass Index 42.0 Labs Results: 06/15/20 19:32 06/15/20 19:32 Imaging Radiology Impressions: ITS Impressions Pelvis Ultrasound 06/15/20 12:32 IMPRESSION: Limited but unremarkable pelvic ultrasound. Transvaginal US 06/15/20 12:37 IMPRESSION: Limited but unremarkable pelvic ultrasound. Abdomen Ultrasound 06/16/20 09:59 IMPRESSION: 1. Hepatic steatosis without any focal lesion. 2. The rest of the abdominal ultrasound is unremarkable. Medications Medications Current Medications Generic Name Dose Route Start Last Admin Trade Name Freq PRN Reason Stop Dose Admin Acetaminophen 650 mg 06/17/20 02:58 Acetaminophen 325 Mg Tablet PO Q6H PRN Headache/Pain Mild Scale (1-3) Al Hydroxide/Mg Hydroxide 30 ml 06/17/20 02:58 Magnesium Hydrox/Alum Hydrox 30 Ml Oral.Susp PO Q6H PRN Heartburn/Nausea Aripiprazole 10 mg 06/17/20 21:00 06/23/20 21:09 Aripiprazole 10 Mg Tablet PO Not Given BEDTIME PRABHJOT Clonidine HCl 0.1 mg 06/17/20 02:58 06/18/20 00:11 Clonidine Hcl 0.1 Mg Tablet PO 0.1 mg Q4H PRN Administration hypertension Protocol Diphenhydramine HCl 50 mg 06/17/20 02:58 Diphenhydramine Hcl 25 Mg Tablet PO Q4H PRN agitation Haloperidol 5 mg 06/17/20 02:58 Haloperidol 5 Mg Tablet PO Q4H PRN agitation Levothyroxine Sodium 88 mcg 06/17/20 06:00 06/24/20 09:52 Levothyroxine Sodium 88 Mcg Tablet PO Not Given DAILY@0600 PRABHJOT [place] Carbonate 600 mg 06/17/20 21:00 06/23/20 21:09 [place] Carbonate 300 Mg Capsule PO Not Given BEDTIME PRABHJOT Magnesium Hydroxide 30 ml 06/17/20 02:58 Milk Of Magnesia 30 Ml Oral.Susp PO DAILY PRN Constipation Nicotine Polacrilex 4 mg 06/17/20 02:58 Nicotine Polacrilex 2 Mg Gum BUCCAL Q2H PRN Nicotine Cravings Trazodone HCl 50 mg 06/17/20 02:58 Trazodone Hcl 50 Mg Tablet PO BEDTIME PRN Insomnia Allergies Allergies Allergy/AdvReac Type Severity Reaction Status Date / Time Sulfa (Sulfonamide Allergy Unknown RASH Verified 06/15/20 11:41 Antibiotics) [Sulfa (Sulfonamides)] Assessment & Plan Assessment & Plan (1) PTSD (post-traumatic stress disorder): Status: Acute Code(s): F43.10 - Post-traumatic stress disorder, unspecified (2) LAURYN (generalized anxiety disorder): Status: Acute Code(s): F41.1 - Generalized anxiety disorder (3) Bipolar 1 disorder: Status: Acute Code(s): F31.9 - Bipolar disorder, unspecified (4) Gastrointestinal distress: Status: Acute Code(s): K30 - Functional dyspepsia Assessment and Plan: -Denies current symptoms Greater than 50% of the session was spent on counseling and/or coordination of care Reason for contiued inpatient stay Substantial Risk for: harm to self, inability to function, rapid decompensation and other (alientation of family, significant other)
[2020-06-25 06:35] VITALS: BP 146/72; PULSE 93; RESP 16; TEMP 36.6; O2SAT 97
--- NOTE | 2020-06-25 17:40 | P.PNPSI_ITS ---
Subjective Subjective Date of Service: 06/25/20 Reason For Visit: Madhuri Subjective Notes: Legal Status (Section VII) Interim History: Remains angry, irritable, paranoid. Declines to meet with TW-requests reassignment of prescriber. Court scheduled for 07/01/20. Reports she has terminated with Dr. Afshin Prieto as well. Medication Compliance: No Side effects from medications: No Attending Groups: No Review of Systems Review of Systems Yes Unobtainable due to mental status Genitourinary: Reports change in libido Reports behavioral changes Psychiatric: Reports anxiety, Reports behavioral changes, Reports change in libido, Reports depression, Reports difficulty concentrating, Reports hopelessness, Reports irritability, Reports anhedonia, Reports mood swings, Reports paranoia and Reports hallucinations Endocrine: Reports change in libido Mental Status Exam Mental Status Exam Patient Appearance: Appropriate Patient Orientation: Person, Place and Time Level of Consciousness: Awake and Alert Patient Behavior: Guarded, Suspicious, Aggressive, Restless, Anxious, Fearful, Resistive to Care and Avoidant Mood Description: Labile and Angry Affect Description: Labile and Angry Patient Cognition Impaired: No Ability to Follow Directions: Poor Speech Pattern: Spontaneous Speech and Rapid Memory Description: Episodic Impaired Hallucinations: None Delusions: Being Controlled and Paranoid Ideation Thought Process: Illogical and Rumination Thought Content: positive for Circumstantial, positive for Perseveration, positive for Preoccupation and positive for Tangential Depressive Symptoms: Increased Anxiety and Increased Irritability Judgement: Poor Diagnostics Vital Signs (24Hr): Vital Signs - 24 hr 06/25/20 06:35 Temperature 97.8 F Pulse Rate 93 Respiratory Rate 16 Blood Pressure 146/72 H Pulse Oximetry 97 Body Mass Index 42.0 Labs Results: 06/15/20 19:32 06/15/20 19:32 Imaging Radiology Impressions: ITS Impressions Pelvis Ultrasound 06/15/20 12:32 IMPRESSION: Limited but unremarkable pelvic ultrasound. Transvaginal US 06/15/20 12:37 IMPRESSION: Limited but unremarkable pelvic ultrasound. Abdomen Ultrasound 06/16/20 09:59 IMPRESSION: 1. Hepatic steatosis without any focal lesion. 2. The rest of the abdominal ultrasound is unremarkable. Medications Medications Current Medications Generic Name Dose Route Start Last Admin Trade Name Freq PRN Reason Stop Dose Admin Acetaminophen 650 mg 06/17/20 02:58 Acetaminophen 325 Mg Tablet PO Q6H PRN Headache/Pain Mild Scale (1-3) Al Hydroxide/Mg Hydroxide 30 ml 06/17/20 02:58 Magnesium Hydrox/Alum Hydrox 30 Ml Oral.Susp PO Q6H PRN Heartburn/Nausea Aripiprazole 10 mg 06/17/20 21:00 06/24/20 21:49 Aripiprazole 10 Mg Tablet PO Not Given BEDTIME PRABHJOT Clonidine HCl 0.1 mg 06/17/20 02:58 06/18/20 00:11 Clonidine Hcl 0.1 Mg Tablet PO 0.1 mg Q4H PRN Administration hypertension Protocol Diphenhydramine HCl 50 mg 06/17/20 02:58 Diphenhydramine Hcl 25 Mg Tablet PO Q4H PRN agitation Haloperidol 5 mg 06/17/20 02:58 Haloperidol 5 Mg Tablet PO Q4H PRN agitation Levothyroxine Sodium 88 mcg 06/17/20 06:00 06/25/20 08:56 Levothyroxine Sodium 88 Mcg Tablet PO Not Given DAILY@0600 PRABHJOT [place] Carbonate 600 mg 06/17/20 21:00 06/24/20 21:49 [place] Carbonate 300 Mg Capsule PO Not Given BEDTIME PRABHJOT Magnesium Hydroxide 30 ml 06/17/20 02:58 Milk Of Magnesia 30 Ml Oral.Susp PO DAILY PRN Constipation Nicotine Polacrilex 4 mg 06/17/20 02:58 Nicotine Polacrilex 2 Mg Gum BUCCAL Q2H PRN Nicotine Cravings Trazodone HCl 50 mg 06/17/20 02:58 Trazodone Hcl 50 Mg Tablet PO BEDTIME PRN Insomnia Allergies Allergies Allergy/AdvReac Type Severity Reaction Status Date / Time Sulfa (Sulfonamide Allergy Unknown RASH Verified 06/15/20 11:41 Antibiotics) [Sulfa (Sulfonamides)] Assessment & Plan Assessment & Plan (1) PTSD (post-traumatic stress disorder): Status: Acute Code(s): F43.10 - Post-traumatic stress disorder, unspecified (2) LAURYN (generalized anxiety disorder): Status: Acute Code(s): F41.1 - Generalized anxiety disorder (3) Bipolar 1 disorder: Status: Acute Code(s): F31.9 - Bipolar disorder, unspecified Assessment and Plan: Current refusal of treatment. Court 07/01/20. Continue to attempt to offer support. Greater than 50% of the session was spent on counseling and/or coordination of care Reason for contiued inpatient stay Substantial Risk for: harm to self, inability to function and rapid decompensation
--- NOTE | 2020-06-26 16:07 | P.PNPSI_ITS ---
Subjective Subjective Date of Service: 06/26/20 Reason For Visit: Madhuri Subjective Notes: Prajapati Warning and Other (s.7) Interim History: Remains angry, irritable, paranoid. Declines to meet with TW. She was angry and spent much of the morning yelling at me at a distance. She accused me of lying to her partner, of lying to her and stated that she is no longer my patient. She has not been taking medication. She required frequent re-direction from staff. She continues to think her food is poisoned. Bernadette is far from baseline. She is acutely manic and paranoid. In the past when she has been manic she has taken off in her car and been missing for periods of time. She is at high risk of harm without treatment due to profoundly impaired judgment. Court scheduled for 07/01/20. Medication Compliance: No Side effects from medications: No Attending Groups: No Review of Systems Acute medical concerns: No Medical Review of Systems: unchanged Review of Systems Review of Systems Yes all other systems are reviewed and are negative (denies, ) and Unobtainable due to mental status Constitutional: Reports no additional constitutional complaints, Denies body ache(s), Denies chills, Denies fever(s), Denies headache(s) and Denies weakness Eyes: Reports no additional eye complaints and Denies change in vision Reports system reviewed and no additional complaints, except as documented, Denies dizziness, Denies headache(s), Denies nasal congestion, Denies nasal discharge and Denies neck pain Cardiovascular: Reports no additional cardiovascular complaints, Denies chest pain, Denies leg edema and Denies dyspnea Respiratory: Reports no additional respiratory complaints, Denies cough and Denies dyspnea Gastrointestinal: Reports no additional gastrointestinal complaints, Reports abdominal pain (cramping ), Denies diarrhea, Denies nausea, Denies vomiting and Reports other (Sukhdev reports pt was overeating, drinking excess fluids ) Genitourinary: Reports change in libido Musculoskeletal: Reports no additional musculoskeletal complaints, Denies back pain, Denies arthralgias, Denies joint swelling, Denies neck pain, Denies numbness and Denies tingling Skin/Breast: Reports system reviewed and no additional complaints, except as docu and Denies rash Reports system reviewed and no additional complaints, except as documented, Denies Abnormal speech present, Reports behavioral changes, Reports confusion, Denies dizziness, Denies headache(s), Denies numbness, Denies tingling and Denies weakness Psychiatric: Reports abnormal sleep pattern, Reports anxiety, Reports behavioral changes, Reports change in appetite, Reports change in libido, Reports confusion, Reports depression, Reports difficulty concentrating, Reports hopelessness, Reports irritability, Reports anhedonia, Reports mood swings, Reports panic attacks, Reports paranoia, Reports hallucinations, Reports homicidal ideation (denies HI plan or intent) and Reports suicidal ideation (denies SI plan or intent) Endocrine: Reports change in libido Mental Status Exam Mental Status Exam Patient Appearance: Disheveled Patient Orientation: Person, Place and Time Level of Consciousness: Awake, Alert and Combative Patient Behavior: Guarded, Suspicious, Aggressive, Restless, Anxious, Fearful, Resistive to Care, Avoidant and Uncooperative Mood Description: Labile and Angry Affect Description: Labile and Angry Patient Cognition Impaired: No Ability to Follow Directions: Poor Speech Pattern: Spontaneous Speech, Rambling, Rapid, Inappropriate, Excessive and Pressured Memory Description: Episodic Impaired Delusions: Paranoid Ideation and Grandiose Thought Process: Distracted and Rumination Thought Content: positive for Circumstantial, positive for Preoccupation, negati ve for Suicidal Ideation and negative for Homicidal Ideation Depressive Symptoms: Increased Irritability and Significant Weight Gain Abnormal Motor Activity Signs and Symptoms: Agitation Judgement: Poor Diagnostics Vital Signs (24Hr): Body Mass Index 42.0 Labs Results: 06/15/20 19:32 06/15/20 19:32 Imaging Radiology Impressions: ITS Impressions Pelvis Ultrasound 06/15/20 12:32 IMPRESSION: Limited but unremarkable pelvic ultrasound. Transvaginal US 06/15/20 12:37 IMPRESSION: Limited but unremarkable pelvic ultrasound. Abdomen Ultrasound 06/16/20 09:59 IMPRESSION: 1. Hepatic steatosis without any focal lesion. 2. The rest of the abdominal ultrasound is unremarkable. Medications Medications Current Medications Generic Name Dose Route Start Last Admin Trade Name Freq PRN Reason Stop Dose Admin Acetaminophen 650 mg 06/17/20 02:58 Acetaminophen 325 Mg Tablet PO Q6H PRN Headache/Pain Mild Scale (1-3) Al Hydroxide/Mg Hydroxide 30 ml 06/17/20 02:58 Magnesium Hydrox/Alum Hydrox 30 Ml Oral.Susp PO Q6H PRN Heartburn/Nausea Aripiprazole 10 mg 06/17/20 21:00 06/25/20 21:23 Aripiprazole 10 Mg Tablet PO Not Given BEDTIME PRABHJOT Clonidine HCl 0.1 mg 06/17/20 02:58 06/18/20 00:11 Clonidine Hcl 0.1 Mg Tablet PO 0.1 mg Q4H PRN Administration hypertension Protocol Diphenhydramine HCl 50 mg 06/17/20 02:58 Diphenhydramine Hcl 25 Mg Tablet PO Q4H PRN agitation Haloperidol 5 mg 06/17/20 02:58 Haloperidol 5 Mg Tablet PO Q4H PRN agitation Levothyroxine Sodium 88 mcg 06/17/20 06:00 06/26/20 09:40 Levothyroxine Sodium 88 Mcg Tablet PO Not Given DAILY@0600 PRABHJOT [place] Carbonate 600 mg 06/17/20 21:00 06/25/20 21:23 [place] Carbonate 300 Mg Capsule PO Not Given BEDTIME PRABHJOT Magnesium Hydroxide 30 ml 06/17/20 02:58 Milk Of Magnesia 30 Ml Oral.Susp PO DAILY PRN Constipation Nicotine Polacrilex 4 mg 06/17/20 02:58 Nicotine Polacrilex 2 Mg Gum BUCCAL Q2H PRN Nicotine Cravings Trazodone HCl 50 mg 06/17/20 02:58 Trazodone Hcl 50 Mg Tablet PO BEDTIME PRN Insomnia Allergies Allergies Allergy/AdvReac Type Severity Reaction Status Date / Time Sulfa (Sulfonamide Allergy Unknown RASH Verified 06/15/20 11:41 Antibiotics) [Sulfa (Sulfonamides)] Assessment & Plan Assessment & Plan (1) PTSD (post-traumatic stress disorder): Status: Acute Code(s): F43.10 - Post-traumatic stress disorder, unspecified (2) LAURYN (generalized anxiety disorder): Status: Acute Code(s): F41.1 - Generalized anxiety disorder (3) Bipolar 1 disorder: Status: Acute Code(s): F31.9 - Bipolar disorder, unspecified Assessment and Plan: Current refusal of treatment. Court 07/01/20. Continue to attempt to offer support. No change to current plan. Greater than 50% of the session was spent on counseling and/or coordination of care Patient educated on: diagnosis and medication risk/benefits Informed Consent: does not understand Reason for contiued inpatient stay Substantial Risk for: inability to function and rapid decompensation
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
--- NOTE | 2020-06-27 17:09 | P.PNPSI_ITS ---
Subjective Subjective Date of Service: 06/27/20 Reason For Visit: Madhuri Subjective Notes: Prajapati Warning and Other (s. 7) Interim History: Remains angry, irritable, paranoid. She wanted to meet with this specifications writer along with RN. Initially she insisted that we videotape the meeting and have 40 witnesses. She continues to insist that this specifications writer is a liar and deceived her. She insists that I had known that she had stopped her medications and agreed to it. She was not able to engage in any reciprocal disucssion and simply yelled at this specifications writer with constant interruption. She has not been sleeping. Staff report her ex-BF called to say that she has been harrassing him. Bernadette is far from baseline. She is acutely manic and paranoid. In the past when she has been manic she has taken off in her car and been missing for periods of time. She is at high risk of harm without treatment due to profoundly impaired judgment. Court scheduled for 07/01/20. Medication Compliance: No Attending Groups: No Review of Systems Acute medical concerns: No Medical Review of Systems: unchanged Review of Systems Review of Systems Yes all other systems are reviewed and are negative (denies, ) and Unobtainable due to mental status Constitutional: Reports no additional constitutional complaints, Denies body ache(s), Denies chills, Denies fever(s), Denies headache(s) and Denies weakness Eyes: Reports no additional eye complaints and Denies change in vision Reports system reviewed and no additional complaints, except as documented, Denies dizziness, Denies headache(s), Denies nasal congestion, Denies nasal di scharge and Denies neck pain Cardiovascular: Reports no additional cardiovascular complaints, Denies chest pain, Denies leg edema and Denies dyspnea Respiratory: Reports no additional respiratory complaints, Denies cough and Denies dyspnea Gastrointestinal: Reports no additional gastrointestinal complaints, Reports abdominal pain (cramping ), Denies diarrhea, Denies nausea, Denies vomiting and Reports other (Sukhdev reports pt was overeating, drinking excess fluids ) Genitourinary: Reports change in libido Musculoskeletal: Reports no additional musculoskeletal complaints, Denies back pain, Denies arthralgias, Denies joint swelling, Denies neck pain, Denies numbness and Denies tingling Skin/Breast: Reports system reviewed and no additional complaints, except as docu and Denies rash Reports system reviewed and no additional complaints, except as documented, Denies Abnormal speech present, Reports behavioral changes, Reports confusion, Denies dizziness, Denies headache(s), Denies numbness, Denies tingling and Denies weakness Psychiatric: Reports abnormal sleep pattern, Reports anxiety, Reports behavioral changes, Reports change in appetite, Reports change in libido, Reports confusio n, Reports depression, Reports difficulty concentrating, Reports hopelessness, Reports irritability, Reports anhedonia, Reports mood swings, Reports panic attacks, Reports paranoia, Reports hallucinations, Reports homicidal ideation (denies HI plan or intent) and Reports suicidal ideation (denies SI plan or intent) Endocrine: Reports change in libido Mental Status Exam Mental Status Exam Patient Appearance: Disheveled Patient Orientation: Person, Place and Time Level of Consciousness: Awake, Alert and Combative Patient Behavior: Guarded, Suspicious, Aggressive, Restless, Anxious, Resistive to Care, Avoidant, Combative and Uncooperative Mood Description: Labile and Angry Affect Description: Labile and Angry Patient Cognition Impaired: No Ability to Follow Directions: Poor Speech Pattern: Spontaneous Speech, Rambling, Rapid, Inappropriate, Excessive and Pressured Memory Description: Episodic Impaired Hallucinations: None Delusions: Paranoid Ideation, Grandiose and Present Thought Content: positive for Circumstantial, positive for Perseveration, negati ve for Suicidal Ideation and negative for Homicidal Ideation Judgement: Poor Diagnostics Vital Signs (24Hr): Body Mass Index 42.0 Labs Results: 06/15/20 19:32 06/15/20 19:32 Imaging Radiology Impressions: ITS Impressions Pelvis Ultrasound 06/15/20 12:32 IMPRESSION: Limited but unremarkable pelvic ultrasound. Transvaginal US 06/15/20 12:37 IMPRESSION: Limited but unremarkable pelvic ultrasound. Abdomen Ultrasound 06/16/20 09:59 IMPRESSION: 1. Hepatic steatosis without any focal lesion. 2. The rest of the abdominal ultrasound is unremarkable. Medications Medications Current Medications Generic Name Dose Route Start Last Admin Trade Name Freq PRN Reason Stop Dose Admin Acetaminophen 650 mg 06/17/20 02:58 Acetaminophen 325 Mg Tablet PO Q6H PRN Headache/Pain Mild Scale (1-3) Al Hydroxide/Mg Hydroxide 30 ml 06/17/20 02:58 Magnesium Hydrox/Alum Hydrox 30 Ml Oral.Susp PO Q6H PRN Heartburn/Nausea Aripiprazole 10 mg 06/17/20 21:00 06/26/20 21:43 Aripiprazole 10 Mg Tablet PO Not Given BEDTIME PRABHJOT Clonidine HCl 0.1 mg 06/17/20 02:58 06/18/20 00:11 Clonidine Hcl 0.1 Mg Tablet PO 0.1 mg Q4H PRN Administration hypertension Protocol Diphenhydramine HCl 50 mg 06/17/20 02:58 Diphenhydramine Hcl 25 Mg Tablet PO Q4H PRN agitation Haloperidol 5 mg 06/17/20 02:58 Haloperidol 5 Mg Tablet PO Q4H PRN agitation Levothyroxine Sodium 88 mcg 06/17/20 06:00 06/27/20 08:18 Levothyroxine Sodium 88 Mcg Tablet PO Not Given DAILY@0600 PRABHJOT [place] Carbonate 600 mg 06/17/20 21:00 06/26/20 21:44 [place] Carbonate 300 Mg Capsule PO Not Given BEDTIME PRABHJOT Magnesium Hydroxide 30 ml 06/17/20 02:58 Milk Of Magnesia 30 Ml Oral.Susp PO DAILY PRN Constipation Nicotine Polacrilex 4 mg 06/17/20 02:58 Nicotine Polacrilex 2 Mg Gum BUCCAL Q2H PRN Nicotine Cravings Trazodone HCl 50 mg 06/17/20 02:58 Trazodone Hcl 50 Mg Tablet PO BEDTIME PRN Insomnia Allergies Allergies Allergy/AdvReac Type Severity Reaction Status Date / Time Sulfa (Sulfonamide Allergy Unknown RASH Verified 06/15/20 11:41 Antibiotics) [Sulfa (Sulfonamides)] Assessment & Plan Assessment & Plan (1) PTSD (post-traumatic stress disorder): Status: Acute Code(s): F43.10 - Post-traumatic stress disorder, unspecified (2) LAURYN (generalized anxiety disorder): Status: Acute Code(s): F41.1 - Generalized anxiety disorder (3) Bipolar 1 disorder: Status: Acute Code(s): F31.9 - Bipolar disorder, unspecified Assessment and Plan: Current refusal of treatment. Court 07/01/20. Continue to attempt to offer support. No change to current plan. Greater than 50% of the session was spent on counseling and/or coordination of care Patient educated on: diagnosis and medication risk/benefits Informed Consent: does not understand Reason for contiued inpatient stay Substantial Risk for: inability to function and rapid decompensation
--- NOTE | 2020-06-27 18:10 | PC.NURSE ---
PT IS REFUSING ALL MEDICATIONS, VITAL SIGNS, AND TREATMENT. PT NEEDS CONSTANT REDIRECT AND YELLS THAT WE ALL NEED TO MAINTAIN SIX FEET APART .
--- NOTE | 2020-06-28 04:57 | PC.NURSE ---
23:30- Limit set on number of milks/juices due to hoarding. Pt awake at 0240: I have a headache and I only have a headache when I take medication. Pt presented as paranoid and hostile; accusing staff of sneaking medication into her food without pt's permission. Pt exhibited no awareness of hospitalization: So I thought I was , so what. If I want to walk around with my hand on my stomach I can do whatever I want. Pt in bed at 0315 and OOB at 0400. Now I'm hot and I only get like this when I've been given medication. Pt accused staff of putting medication in her milk. Staff denied and attempted to reassure but pt continued to escalate. Pt in bed by 0420 and continuing to refuse medication. Pt beleives her ex-'s family is working in the kitchen and putting medication in her food.
--- NOTE | 2020-06-28 18:43 | HO.PSYCHPN ---
Subjective Subjective Date of Service: 06/28/20 Reason For Visit: Madhuri Subjective Notes: Legal Status (Section VII) Interim History: Agitated, angry, confrontive, argumenative, demanding. Spent most of the day yelling, demanding fluids- due to pt's hoarding of fluids, the team is now giving out all fluids to the entire milieu, pt is allowed all fluids on her meal tray and 3 water, 3 juice and 3 milk servings between meals, in addition to her water pitcher. When another pt or staff passes pt she screams about COVID and needing six feet of distance. Paranoia is present-believes food to be poisoned, accused team of putting white powder on her tray. Pt was treated over the weekend by her psychiatrist of five years, Dr. Afshin Prieto and would not allow Dr. Afshin Prieto the opportunity to talk with her without expressing the severe agitated state she presents today. Initially approached health science writer this a.m. for fluids, when received, she would not talk with health science writer unless we were going to make discharge plans. Review of Systems Review of Systems Yes Unobtainable due to mental status Genitourinary: Reports change in libido Reports behavioral changes and Reports confusion Psychiatric: Reports abnormal sleep pattern, Reports anxiety, Reports behavioral changes, Reports change in appetite, Reports change in libido, Reports confusion, Reports depression, Reports difficulty concentrating, Reports hopelessness, Reports irritability, Reports anhedonia, Reports mood swings, Reports paranoia and Reports hallucinations Endocrine: Reports change in libido Mental Status Exam Mental Status Exam Patient Appearance: Disheveled Patient Orientation: Person, Place and Time Level of Consciousness: Awake, Restless and Alert Patient Behavior: Guarded, Talkative, Hyperactive, Suspicious, Aggressive, Restless, Belligerent, Wandering, Verbal Threats, Anxious, Fearful, Resistive to Care, Invasion - Personal Space, Avoidant, Fatigued, Distractible, Isolative, Impulsive and Pacing Mood Description: Labile and Angry Affect Description: Labile and Angry Patient Cognition Impaired: Yes Ability to Follow Directions: Poor Speech Pattern: Perseverating, Spontaneous Speech, Cofabulation, Rapid, Loud and Pressured Memory Description: Remote Impaired and Episodic Impaired Delusions: Being Controlled, Paranoid Ideation and Present Thought Process: Racing, Illogical, Distracted and Rumination Thought Content: positive for Racing, positive for [place], positive for Obsessional Thoughts, positive for Circumstantial, positive for Perseveration and positive for Poverty of Content Depressive Symptoms: Increased Anxiety, Insomnia, Increased Irritability, Difficulty Sleeping, Changes in Appetite, Feelings of Worthlessness, Unhappiness, Low Self Esteem and Difficulty Concentrating Abnormal Motor Activity Signs and Symptoms: Agitation, Hyperactivity and Restlessness Judgement: Poor Diagnostics Vital Signs (24Hr): Body Mass Index 42.0 Labs Results: 06/15/20 19:32 06/15/20 19:32 Imaging Radiology Impressions: ITS Impressions Pelvis Ultrasound 06/15/20 12:32 IMPRESSION: Limited but unremarkable pelvic ultrasound. Transvaginal US 06/15/20 12:37 IMPRESSION: Limited but unremarkable pelvic ultrasound. Abdomen Ultrasound 06/16/20 09:59 IMPRESSION: 1. Hepatic steatosis without any focal lesion. 2. The rest of the abdominal ultrasound is unremarkable. Medications Medications Current Medications Generic Name Dose Route Start Last Admin Trade Name Freq PRN Reason Stop Dose Admin Acetaminophen 650 mg 06/17/20 02:58 Acetaminophen 325 Mg Tablet PO Q6H PRN Headache/Pain Mild Scale (1-3) Al Hydroxide/Mg Hydroxide 30 ml 06/17/20 02:58 Magnesium Hydrox/Alum Hydrox 30 Ml Oral.Susp PO Q6H PRN Heartburn/Nausea Aripiprazole 10 mg 06/17/20 21:00 06/27/20 20:05 Aripiprazole 10 Mg Tablet PO Not Given BEDTIME PRABHJOT Clonidine HCl 0.1 mg 06/17/20 02:58 06/18/20 00:11 Clonidine Hcl 0.1 Mg Tablet PO 0.1 mg Q4H PRN Administration hypertension Protocol Diphenhydramine HCl 50 mg 06/17/20 02:58 Diphenhydramine Hcl 25 Mg Tablet PO Q4H PRN agitation Haloperidol 5 mg 06/17/20 02:58 Haloperidol 5 Mg Tablet PO Q4H PRN agitation Levothyroxine Sodium 88 mcg 06/17/20 06:00 06/28/20 08:09 Levothyroxine Sodium 88 Mcg Tablet PO Not Given DAILY@0600 PRABHJOT [place] Carbonate 600 mg 06/17/20 21:00 06/27/20 20:05 [place] Carbonate 300 Mg Capsule PO Not Given BEDTIME PRABHJOT Lorazepam 1 mg 06/28/20 12:02 Lorazepam 1 Mg Tablet PO Q4H PRN agitation,anxiety Magnesium Hydroxide 30 ml 02/11/21 02:58 Milk Of Magnesia 30 Ml Oral.Susp PO DAILY PRN Constipation Nicotine Polacrilex 4 mg 06/17/20 02:58 Nicotine Polacrilex 2 Mg Gum BUCCAL Q2H PRN Nicotine Cravings Trazodone HCl 50 mg 06/17/20 02:58 Trazodone Hcl 50 Mg Tablet PO BEDTIME PRN Insomnia Allergies Allergies Allergy/AdvReac Type Severity Reaction Status Date / Time Sulfa (Sulfonamide Allergy Unknown RASH Verified 06/15/20 11:41 Antibiotics) [Sulfa (Sulfonamides)] Assessment & Plan Assessment & Plan (1) Bipolar 1 disorder: Status: Acute Code(s): F31.9 - Bipolar disorder, unspecified Assessment and Plan: -Attempt to support pt in recovery -Court 07/01/20 for application for civil commitment. (2) LAURYN (generalized anxiety disorder): Status: Acute Code(s): F41.1 - Generalized anxiety disorder (3) PTSD (post-traumatic stress disorder): Status: Acute Code(s): F43.10 - Post-traumatic stress disorder, unspecified Greater than 50% of the session was spent on counseling and/or coordination of care Reason for contiued inpatient stay Substantial Risk for: harm to self, harm to others, inability to function and rapid decompensation
--- NOTE | 2020-06-28 22:08 | PC.NURSE ---
Addendum entered by Oliver Kelly RN 06/28/20 23:04: Pt accepted TW to take vitals. Vitals WNL and afebrile. Pt instructed to elevate legs and given education by several staff members. Original Note: Pt has been yelling and verbally abusive to staff all shift. States You are neglecting my needs and denying my rights here! Security has been up to speak with the patient in regards to her behaviors in the milieu. Throughout the shift she has agitated her peers with being disruptive. Refused vitals, treatment and medications. Towards the end of the shift she explained that she had swelling on bilateral feet and two staff were present to assess for edema. Per staff there is +1 edema, pedal pulses are present, warm to touch. Agreed to have pulse rate checked = 100. Refused all other vitals stating you already have my HR and that is all that you need you should know. Will continue to monitor. Pt demanded that she be transferred to the medical floor to be treated. I need someone in my room every 5 minutes I know my body unlike you know yours...what are you anorexic?!...what is your name again Jenny right? Pt has been continuously asking staff why she can not get ahold of her family and blaming staff that we are blocking her phone calls on purpose.
[2020-06-28 23:06] VITALS: BP 128/76; PULSE 100; TEMP 36.9
--- NOTE | 2020-06-29 15:37 | P.CONIM_ITS ---
History of Present Illness Data of Consult Service Date: 06/29/20 Requesting physician: Sanya Tijerina Primary Care Provider: Unknown Physician HPI Reason for consult: Lower extremity swelling A 39 years old lady with PMH of bipolar, PTSD, generalized anxiety disorder, hypothyroidism among others who was admitted to the hospital with bipolar disease exacerbation, robert. The patient was refusing taking her medications during the hospital stay as she believe she was kept against her well. Reports that since February she stop taking any medications and tried to manage herself without them. She noticed increased swelling in her lower extremities but that did not both of her. She reports drinking plenty of water, milk during the day and going many times to the bathroom. No fever, chills, urgency, discomfort urination. Hospitalist team was last evaluated the patient for lower extremity swelling. Review of Systems Review of Systems: No fever, chills or weakness No chest pain, palpitation but reports edema lower extremities No shortness of breath or coughing No abdominal pain, nausea or vomiting No urinary symptoms, increased frequency No any rash or wounds PMFSH Medical History (Updated 06/29/20 @ 15:42 by Shen Gutierrez MD) Bipolar 1 disorder delivery delivered LAURYN (generalized anxiety disorder) Molly's disease PTSD (post-traumatic stress disorder) Social History Household Members: Significant Other Household Members Other:: 1 Housing: Apartment Do you presently have visiting nurse or other home services: No Smoking Status: Never smoker Smoked in Last 30 Days: No Use of substances other than those prescribed or required for medical reasons: No Currently Displaying Signs/Symptoms of Drug Intoxication Withdrawal: No Other Past Substance Use Problem:: denied Any prior treatment program specific to substance use: No Have you been hit, kicked, punched, or otherwise hurt by someone within the past year? If so, by whom?: No Do you feel safe in your current relationship?: No Current Relationship Is there a partner from a previous relationship who is making you feel unsafe now?: No Are you made to feel afraid or neglected: No Spiritual Healthcare Practices: denied Scientology Healthcare Practices: denied Cultural Healthcare Practices: denied Advance Directives: No Advance Directives Information Provided: Yes Do you have thoughts of harming others: None Do you have a plan to hurt others: No Plan Recently lost weight without trying: No service: No Sexual orientation: Straight/Heterosexual Meds Allergies Allergy/AdvReac Type Severity Reaction Status Date / Time Sulfa (Sulfonamide Allergy Unknown RASH Verified 06/15/20 11:41 Antibiotics) [Sulfa (Sulfonamides)] Active Medications: Current Medications Generic Name Dose Route Start Last Admin Trade Name Freq PRN Reason Stop Dose Admin Acetaminophen 650 mg 06/17/20 02:58 Acetaminophen 325 Mg Tablet PO Q6H PRN Headache/Pain Mild Scale (1-3) Al Hydroxide/Mg Hydroxide 30 ml 06/17/20 02:58 Magnesium Hydrox/Alum Hydrox 30 Ml Oral.Susp PO Q6H PRN Heartburn/Nausea Aripiprazole 10 mg 06/17/20 21:00 06/28/20 20:36 Aripiprazole 10 Mg Tablet PO Not Given BEDTIME PRABHJOT Clonidine HCl 0.1 mg 06/17/20 02:58 06/18/20 00:11 Clonidine Hcl 0.1 Mg Tablet PO 0.1 mg Q4H PRN Administration hypertension Protocol Diphenhydramine HCl 50 mg 06/17/20 02:58 Diphenhydramine Hcl 25 Mg Tablet PO Q4H PRN agitation Haloperidol 5 mg 06/17/20 02:58 Haloperidol 5 Mg Tablet PO Q4H PRN agitation Levothyroxine Sodium 88 mcg 06/17/20 06:00 06/29/20 08:25 Levothyroxine Sodium 88 Mcg Tablet PO Not Given DAILY@0600 PRABHJOT [place] Carbonate 600 mg 06/17/20 21:00 06/28/20 20:36 [place] Carbonate 300 Mg Capsule PO Not Given BEDTIME PRABHJOT Lorazepam 1 mg 06/28/20 12:02 Lorazepam 1 Mg Tablet PO Q4H PRN agitation,anxiety Magnesium Hydroxide 30 ml 06/17/20 02:58 Milk Of Magnesia 30 Ml Oral.Susp PO DAILY PRN Constipation Nicotine Polacrilex 4 mg 06/17/20 02:58 Nicotine Polacrilex 2 Mg Gum BUCCAL Q2H PRN Nicotine Cravings Trazodone HCl 50 mg 06/17/20 02:58 Trazodone Hcl 50 Mg Tablet PO BEDTIME PRN Insomnia Home Medications Medication Instructions Recorded Confirmed Last Taken Type aripiprazole [Abilify] 20 mg PO BEDTIME 06/17/20 06/17/20 Unknown History clonazepam [Klonopin] 0.5 mg PO BID PRN 06/17/20 06/17/20 Unknown History levothyroxine 88 mcg PO DAILY 06/17/20 06/17/20 Unknown History lithium carbonate 600 mg PO BEDTIME 06/17/20 06/17/20 Unknown History Physical Exam Vital Signs and Narrative: Vital Signs: Last Vital Signs Temp 98.5 F 06/28/20 23:06 Pulse 100 06/28/20 23:06 Resp 16 06/25/20 06:35 BP 128/76 06/28/20 23:06 Pulse Ox 97 06/25/20 06:35 Body Mass Index 42.0 Constitutional : Alert, oriented, not in distress Neck : Normal inspection, Supple Cardiovascular : RRR, S1 S2, +1 bilateral lower extremity edema up to mid tibia Respiratory : Good bilateral air entry, no crackles, wheezes or rhonchi Gastrointestinal: soft, lax, Normal bowel sounds, Non tender Skin : Warm/Dry, No rash Neurological : Alert & oriented x3, No focal deficit Results Labs CBC and Chem 7: 06/15/20 19:32 06/15/20 19:32 Assessment and Plan (1) Bilateral lower extremity edema: Status: Acute (2) Polyuria: Status: Acute (3) Hypothyroidism: Status: Acute A 39 years old lady with PMH of bipolar, PTSD, generalized anxiety disorder, hypothyroidism among others who was admitted to the hospital with bipolar disease exacerbation, robert. Past to evaluate for lower extremity edema Bilateral lower extremity edema Likely secondary to what seems psychogenic increase water intake and hypothyroidism Advised to restart her levothyroxine Water intake restriction, will hold on any active treatment for LE edema at this point Hypothyroidism She will need to start her with levothyroxine Last TSH of Polyuria Reports be associated with weight gain, polyphasia To check HbA1c Patient refuses to take medications or to do blood work.
[2020-06-29 17:24] VITALS: PULSE 103; RESP 16; TEMP 36.7; O2SAT 96
--- NOTE | 2020-06-29 17:42 | P.PNPSI_ITS ---
Subjective Subjective Date of Service: 06/29/20 Reason For Visit: Madhuri Subjective Notes: Legal Status (Section VII) Interim History: Pt experiencing BLE edema with warmth. Hospitalist consult requested and appreciated. Pt was encouraged to have labs and accept her thyroid medication, but declines. Pt declined to meet with feature writer. I have told her I am available to her as needed. Tells team she worries food is poisoned by ex- husbands family who works in the dietary dept. Fluid hoarding measures are being continued. Pt did accept a pitcher of water along with her milks, juices and bottled daniel as she was allowed to observe the filling of the pitcher. Loud p eriods continue-mostly when she feels that rights are being violated. Discussed with her primary therapist today missing her boyfriend, daughter and dogs and not wanting to accept medications. Medication Compliance: No Side effects from medications: No Attending Groups: No Review of Systems Review of Systems Yes Unobtainable due to mental status (states she will allow hospitalist to evaluate BLE) Mental Status Exam Mental Status Exam Patient Appearance: Disheveled Patient Orientation: Person, Place, Time and Situation Level of Consciousness: Awake, Restless, Alert and Inappropriate (at times) Patient Behavior: Guarded, Talkative, Suspicious, Aggressive, Restless, Belligerent, Anxious, Fearful, Resistive to Care and Avoidant Mood Description: Suspicious, Fearful, Hostile, Anxious, Labile, Angry, Sad, Nervous and Apprehensive Affect Description: Labile and Angry Patient Cognition Impaired: Yes Ability to Follow Directions: Poor Speech Pattern: Perseverating, Spontaneous Speech, Loud and Pressured Memory Description: Remote Impaired, [facility] Impaired and Episodic Impaired Delusions: Paranoid Ideation and Present Thought Content: positive for [place], positive for Obsessional Thoughts, positive for Circumstantial, positive for Perseveration, positive for Preoccup ation and positive for Tangential Depressive Symptoms: Increased Anxiety, Increased Irritability, Changes in Appetite, Crying Spells and Unhappiness Abnormal Motor Activity Signs and Symptoms: Agitation and Restlessness Judgement: Poor Diagnostics Vital Signs (24Hr): Vital Signs - 24 hr 06/28/20 23:06 06/29/20 17:24 Temperature 98.5 F 98.0 F Pulse Rate 100 103 H Respiratory Rate 16 Blood Pressure 128/76 Pulse Oximetry 96 Body Mass Index 42.0 Labs Results: 06/15/20 19:32 06/15/20 19:32 Imaging Radiology Impressions: ITS Impressions Pelvis Ultrasound 06/15/20 12:32 IMPRESSION: Limited but unremarkable pelvic ultrasound. Transvaginal US 06/15/20 12:37 IMPRESSION: Limited but unremarkable pelvic ultrasound. Abdomen Ultrasound 06/16/20 09:59 IMPRESSION: 1. Hepatic steatosis without any focal lesion. 2. The rest of the abdominal ultrasound is unremarkable. Medications Medications Current Medications Generic Name Dose Route Start Last Admin Trade Name Freq PRN Reason Stop Dose Admin Acetaminophen 650 mg 06/17/20 02:58 Acetaminophen 325 Mg Tablet PO Q6H PRN Headache/Pain Mild Scale (1-3) Al Hydroxide/Mg Hydroxide 30 ml 06/17/20 02:58 Magnesium Hydrox/Alum Hydrox 30 Ml Oral.Susp PO Q6H PRN Heartburn/Nausea Aripiprazole 10 mg 06/17/20 21:00 06/28/20 20:36 Aripiprazole 10 Mg Tablet PO Not Given BEDTIME PRABHJOT Clonidine HCl 0.1 mg 06/17/20 02:58 06/18/20 00:11 Clonidine Hcl 0.1 Mg Tablet PO 0.1 mg Q4H PRN Administration hypertension Protocol Diphenhydramine HCl 50 mg 06/17/20 02:58 Diphenhydramine Hcl 25 Mg Tablet PO Q4H PRN agitation Haloperidol 5 mg 06/17/20 02:58 Haloperidol 5 Mg Tablet PO Q4H PRN agitation Levothyroxine Sodium 88 mcg 06/17/20 06:00 06/29/20 08:25 Levothyroxine Sodium 88 Mcg Tablet PO Not Given DAILY@0600 PRABHJOT [place] Carbonate 600 mg 06/17/20 21:00 06/28/20 20:36 Regino Ramirez Carbonate 300 Mg Capsule PO Not Given BEDTIME PRABHJOT Lorazepam 1 mg 06/28/20 12:02 Lorazepam 1 Mg Tablet PO Q4H PRN agitation,anxiety Magnesium Hydroxide 30 ml 06/17/20 02:58 Milk Of Magnesia 30 Ml Oral.Susp PO DAILY PRN Constipation Nicotine Polacrilex 4 mg 06/17/20 02:58 Nicotine Polacrilex 2 Mg Gum BUCCAL Q2H PRN Nicotine Cravings Trazodone HCl 50 mg 06/17/20 02:58 Trazodone Hcl 50 Mg Tablet PO BEDTIME PRN Insomnia Allergies Allergies Allergy/AdvReac Type Severity Reaction Status Date / Time Sulfa (Sulfonamide Allergy Unknown RASH Verified 06/15/20 11:41 Antibiotics) [Sulfa (Sulfonamides)] Assessment & Plan Assessment & Plan (1) PTSD (post-traumatic stress disorder): Status: Acute Code(s): F43.10 - Post-traumatic stress disorder, unspecified (2) Bipolar 1 disorder: Status: Acute Code(s): F31.9 - Bipolar disorder, unspecified (3) LAURYN (generalized anxiety disorder): Status: Acute Code(s): F41.1 - Generalized anxiety disorder Greater than 50% of the session was spent on counseling and/or coordination of care Reason for contiued inpatient stay Substantial Risk for: harm to self, rapid decompensation and med/psych decompensation
[2020-06-30 05:10] VITALS: RESP 20
--- NOTE | 2020-06-30 07:19 | PC.NURSE ---
[id number]: Patient received 3 whole milk, three apple juice and three [place] pol[place] water bottle servings at the beginning of the shift after reports, went to bed and and appeared to have better sleep this shift. Patient was up couple times using restroom. Patient was up and out to the unit at around 0500 started with loud voice that she was dehydrated and that she staff control her on what she could have and drink. Patient was explained the plan for food and drink for each shift. Staff offered more water from machine in the med room. Patient refused numerous times stated that I dont want [place] water, [place] water is filthy. . Nurse and doctors do not make all decisions. They do not know everything . They need to come off of their highs. I have family working in the hospital and I know they are not always right . They dont have the right to withhold food/drink from other people. Patient asked this TW who you are?. Why you tell me what I can drink or eat.I know my body when TW offered her food and drink which were available on the unit. Patient added when I get out of here I will go to the store and go to the fridge to get whatever I want . Being here is traumatized and you know I should not be here. They hold me be and dehydrated me . Patient continued you know my daughter always told me that I can stand up for myself. They diagnosed me with mental illness does not mean that I have i have it. I am the nicest and caring person . Patient was calmer when TW told patient that that what TW heard from her family that when patient is at baseline she is a nice person . Patient was in and out to the handley then told TW can you put in my chart that I cannot urinate? You know why because I am dehydrated . Patient refused to elevated her legs when offered more blankets to help with the edema on bilateral feet no thank you. It does not help . TW also asked if patient agreed to have some labs done to make sure everything is ok and possible to rule out the reasons for her leg edema. Patient did not want it to happened you have my blood sample when I was downstairs and everything is fine. I just dehydrated . Patient also refuse to urinate or get the measurement hat put in her room to measure urine output I cannot urinate because I am dehydrated. My sugar is low. I know my body. Can I ask you a question?. Why the fish turn up side down when I am angry? Patient continued I have the answer in my head but you guys did not want to listen to me because I am dehydrated . Patient refused Blood sugar check and refused VSs taken as well Patient appeared very angry, agitated mood at times, argumentative and did not want to hear any answers from staff, paranoia, racing thoughts, flight of ideas, hyperverbal, have no insight of illness and irrational at times, refused all treatment offered. Plan: continue to monitor for mental status change, redirect as needed.
--- NOTE | 2020-06-30 16:27 | HO.PSYCHPN ---
Subjective Subjective Date of Service: 06/30/20 Reason For Visit: Robert Subjective Notes: Legal Status (section VII) Interim History: Bernadette continues to present with agitation, anger, fear, paranoia and delusional content. She at times screams in milieu. She declines to meet but will ask team to come to her room so she may yell at them, the themes being having her rights violated, not having access to all of the units fluids, having the food poisoned by the hospital, reviewing reason for admission. At one time she was introducing herself with a loud tone and reporting the noted themes. She declines all assistance and intervention. She is circular in her thought process and is unable to do a reality validation. She is preoccupied with fear. Medication Compliance: No Side effects from medications: No Attending Groups: No Review of Systems Review of Systems Yes Unobtainable due to mental status Reports behavioral changes, Reports confusion and Reports memory loss Psychiatric: Reports abnormal sleep pattern, Reports anxiety, Reports behavioral changes, Reports change in appetite, Reports confusion, Reports depression, Reports difficulty concentrating, Reports irritability, Reports anhedonia, Reports memory loss, Reports mood swings, Reports paranoia and Reports hallucinations Mental Status Exam Mental Status Exam Patient Appearance: Disheveled Patient Orientation: Person, Place, Time and Situation Level of Consciousness: Restless, Alert and Combative (verbally) Patient Behavior: Guarded, Talkative, Suspicious, Aggressive, Restless, Belligerent, Verbal Threats, Anxious, Fearful, Resistive to Care, Invasion - Personal Space, Avoidant, Distractible, Confused, Good Eye Contact, Crying, Uncooperative, Impulsive and Pacing Mood Description: Fearful, Labile and Angry Affect Description: Fearful, Labile and Angry Patient Cognition Impaired: Yes Ability to Follow Directions: Poor Speech Pattern: Perseverating, Spontaneous Speech, Rapid, Loud and Pressured Memory Description: Episodic Impaired Hallucinations: None Delusions: Being Controlled, Paranoid Ideation, Grandiose and Present Thought Process: Racing, Illogical, Distracted, Rumination and Linear Thought Content: positive for Racing, positive for [place], positive for Circumstantial, positive for Linear and positive for Perseveration Depressive Symptoms: Increased Anxiety, Increased Irritability, Difficulty Sleeping, Changes in Appetite, Crying Spells, Loss of Int. in Activity, Unhappiness and Difficulty Concentrating Abnormal Motor Activity Signs and Symptoms: Agitation, Hyperactivity and Restlessness Judgement: Poor Diagnostics Vital Signs (24Hr): Vital Signs - 24 hr 06/29/20 17:24 06/30/20 05:10 Temperature 98.0 F Pulse Rate 103 H Respiratory Rate 16 20 Pulse Oximetry 96 Body Mass Index 42.0 Labs Results: 06/15/20 19:32 06/15/20 19:32 Imaging Radiology Impressions: ITS Impressions Pelvis Ultrasound 06/15/20 12:32 IMPRESSION: Limited but unremarkable pelvic ultrasound. Transvaginal US 06/15/20 12:37 IMPRESSION: Limited but unremarkable pelvic ultrasound. Abdomen Ultrasound 06/16/20 09:59 IMPRESSION: 1. Hepatic steatosis without any focal lesion. 2. The rest of the abdominal ultrasound is unremarkable. Medications Medications Current Medications Generic Name Dose Route Start Last Admin Trade Name Freq PRN Reason Stop Dose Admin Acetaminophen 650 mg 06/17/20 02:58 Acetaminophen 325 Mg Tablet PO Q6H PRN Headache/Pain Mild Scale (1-3) Al Hydroxide/Mg Hydroxide 30 ml 06/17/20 02:58 Magnesium Hydrox/Alum Hydrox 30 Ml Oral.Susp PO Q6H PRN Heartburn/Nausea Aripiprazole 10 mg 06/17/20 21:00 06/29/20 22:12 Aripiprazole 10 Mg Tablet PO Not Given BEDTIME PRABHJOT Clonidine HCl 0.1 mg 06/17/20 02:58 06/18/20 00:11 Clonidine Hcl 0.1 Mg Tablet PO 0.1 mg Q4H PRN Administration hypertension Protocol Diphenhydramine HCl 50 mg 06/17/20 02:58 Diphenhydramine Hcl 25 Mg Tablet PO Q4H PRN agitation Haloperidol 5 mg 06/17/20 02:58 Haloperidol 5 Mg Tablet PO Q4H PRN agitation Levothyroxine Sodium 88 mcg 06/17/20 06:00 06/30/20 08:10 Levothyroxine Sodium 88 Mcg Tablet PO Not Given DAILY@0600 PRABHJOT [place] Carbonate 600 mg 06/17/20 21:00 06/29/20 22:12 [place] Carbonate 300 Mg Capsule PO Not Given BEDTIME PRABHJOT Lorazepam 1 mg 06/28/20 12:02 Lorazepam 1 Mg Tablet PO Q4H PRN agitation,anxiety Magnesium Hydroxide 30 ml 06/17/20 02:58 Milk Of Magnesia 30 Ml Oral.Susp PO DAILY PRN Constipation Nicotine Polacrilex 4 mg 06/17/20 02:58 Nicotine Polacrilex 2 Mg Gum BUCCAL Q2H PRN Nicotine Cravings Trazodone HCl 50 mg 06/17/20 02:58 Trazodone Hcl 50 Mg Tablet PO BEDTIME PRN Insomnia Allergies Allergies Allergy/AdvReac Type Severity Reaction Status Date / Time Sulfa (Sulfonamide Allergy Unknown RASH Verified 06/15/20 11:41 Antibiotics) [Sulfa (Sulfonamides)] Assessment & Plan Assessment & Plan (1) Hypothyroidism: Status: Acute Code(s): E03.9 - Hypothyroidism, unspecified Assessment and Plan: -Refusing medication and diagnostics (2) Bilateral lower extremity edema: Status: Acute Code(s): R60.0 - Localized edema Assessment and Plan: -Refusing hospitalist plan of care-diagnostics and return to levothyroxine (3) PTSD (post-traumatic stress disorder): Status: Acute Code(s): F43.10 - Post-traumatic stress disorder, unspecified Assessment and Plan: exacerbated with robert and triggered by past experiences (4) LAURYN (generalized anxiety disorder): Status: Acute Code(s): F41.1 - Generalized anxiety disorder (5) Bipolar 1 disorder: Status: Acute Code(s): F31.9 - Bipolar disorder, unspecified Assessment and Plan: Court 07/01/20 for civil commitment decision. Greater than 50% of the session was spent on counseling and/or coordination of care Reason for contiued inpatient stay Substantial Risk for: harm to self, harm to others, inability to function and rapid decompensation
--- NOTE | 2020-07-01 04:06 | PC.NURSE ---
Pt presented as delusional and paranoid intermittently throughout the night. Pt continues to believe that her pupils are abnormal size: After I got blood work they (pupils) were tiny dots. Pt believes that staff is injecting her with medication through blood work, food, and beverage. Pt refused water from a faucet because previoulsy there were tiny white pieces (medication) floating in her water pitcher. Other people want to control me. You want my blood. My blood is important to you guys for some reason. Pt continued to perseverate intermittently on staff giving her medication against her will. How come my bowel movement smells so bad? It's because all of you guys (staff) put dirty into me. Pt refused vital signs. Grounding techniques were ineffective as the pt offered new paranoid delusions. Pt sleepless for entire shift.
--- NOTE | 2020-07-01 04:40 | PC.NURSE ---
0440: Pt screaming and swearing at staff to give her bottled water, milk and juice.Pt wanted her full allotment of po fluids at the beginning of the shift to which she agreed. Pt denied agreeing to this. Pt refused to move away from nurses desk when asked and actually became louder and more verbally aggressive and abusive to staff.Security called to help redirect pt. Pt continues to be argumentative with security regarding po fluids. Water from ice machine offered several times but refused by pt insisting she only wants bottled water and any other type is dirty.0500: security remains on unit. Pt is presently less agitated while speaking to security but remains oppositional and challenging. Pt is not yelling at this time.
--- NOTE | 2020-07-01 18:50 | P.PNPSI_ITS ---
Subjective Subjective Date of Service: 07/01/20 Reason For Visit: Madhuri Subjective Notes: Legal Status (Section VII) Interim History: Pt attended her civil commitment hearing which was continued until 07/02/20. She was concerned about her father after his testimony and is working with the team to make contact with him. Lability, fear, paranoia continue. This a.m. pt approached loan underwriter to discuss that her identity had been stolen by the hospital and that she was unsure why we wanted her blood to duplicate her genes. Discussed fluid limitations-believes she needs more fluids. Discussed not understanding why she had been sent to inpatient psychiatry when she presented for abdominal discomfort. Pt's father provided history of pt's illness and decompensation in the hearing today which is similiar to current presentation. Father reported that pt per the court is ordered to tell her when she goes off of her medications as it will effect visitation with her daughter. Medication Compliance: No Side effects from medications: No Attending Groups: No Review of Systems Review of Systems Yes Unobtainable due to mental status Reports behavioral changes Psychiatric: Reports abnormal sleep pattern, Reports anxiety, Reports behavioral changes, Reports irritability and Reports mood swings Mental Status Exam Mental Status Exam Patient Appearance: Fatigued Patient Orientation: Person, Place, Time and Situation Level of Consciousness: Alert Patient Behavior: Guarded, Talkative, Hyperactive, Suspicious, Aggressive (at times verbally), Restless, Belligerent, Anxious, Fearful, Resistive to Care, Fatigued, Good Eye Contact and Uncooperative Mood Description: Fearful, Labile and Angry Affect Description: Fearful, Labile and Angry Patient Cognition Impaired: Yes Ability to Follow Directions: Poor Speech Pattern: Perseverating, Spontaneous Speech, Rapid, Loud and Pressured Memory Description: Remote Impaired, Immediate Impaired, [facility] Impaired, Episodic Impaired and Recent Impaired Hallucinations: None Delusions: Being Controlled, Paranoid Ideation and Present Thought Process: Racing, Illogical, Distracted and Linear Thought Content: positive for [place], positive for Circumstantial, positive for Perseveration and positive for Tangential Depressive Symptoms: Increased Irritability, Unhappiness, Increased Fatigue and Difficulty Concentrating Abnormal Motor Activity Signs and Symptoms: Agitation and Restlessness Judgement: Poor Diagnostics Vital Signs (24Hr): Body Mass Index 42.0 Labs Results: 06/15/20 19:32 06/15/20 19:32 Imaging Radiology Impressions: ITS Impressions Pelvis Ultrasound 06/15/20 12:32 IMPRESSION: Limited but unremarkable pelvic ultrasound. Transvaginal US 06/15/20 12:37 IMPRESSION: Limited but unremarkable pelvic ultrasound. Abdomen Ultrasound 06/16/20 09:59 IMPRESSION: 1. Hepatic steatosis without any focal lesion. 2. The rest of the abdominal ultrasound is unremarkable. Medications Medications Current Medications Generic Name Dose Route Start Last Admin Trade Name Freq PRN Reason Stop Dose Admin Acetaminophen 650 mg 06/17/20 02:58 Acetaminophen 325 Mg Tablet PO Q6H PRN Headache/Pain Mild Scale (1-3) Al Hydroxide/Mg Hydroxide 30 ml 06/17/20 02:58 Magnesium Hydrox/Alum Hydrox 30 Ml Oral.Susp PO Q6H PRN Heartburn/Nausea Aripiprazole 10 mg 06/17/20 21:00 06/30/20 22:03 Aripiprazole 10 Mg Tablet PO Not Given BEDTIME PRABHJOT Clonidine HCl 0.1 mg 06/17/20 02:58 06/18/20 00:11 Clonidine Hcl 0.1 Mg Tablet PO 0.1 mg Q4H PRN Administration hypertension Protocol Diphenhydramine HCl 50 mg 06/17/20 02:58 Diphenhydramine Hcl 25 Mg Tablet PO Q4H PRN agitation Haloperidol 5 mg 06/17/20 02:58 Haloperidol 5 Mg Tablet PO Q4H PRN agitation Levothyroxine Sodium 88 mcg 06/17/20 06:00 07/01/20 08:12 Levothyroxine Sodium 88 Mcg Tablet PO Not Given DAILY@0600 PRABHJOT [place] Carbonate 600 mg 06/17/20 21:00 06/30/20 22:03 [place] Carbonate 300 Mg Capsule PO Not Given BEDTIME PRABHJOT Lorazepam 1 mg 06/28/20 12:02 Lorazepam 1 Mg Tablet PO Q4H PRN agitation,anxiety Magnesium Hydroxide 30 ml 06/17/20 02:58 Milk Of Magnesia 30 Ml Oral.Susp PO DAILY PRN Constipation Nicotine Polacrilex 4 mg 06/17/20 02:58 Nicotine Polacrilex 2 Mg Gum BUCCAL Q2H PRN Nicotine Cravings Trazodone HCl 50 mg 06/17/20 02:58 Trazodone Hcl 50 Mg Tablet PO BEDTIME PRN Insomnia Allergies Allergies Allergy/AdvReac Type Severity Reaction Status Date / Time Sulfa (Sulfonamide Allergy Unknown RASH Verified 06/15/20 11:41 Antibiotics) [Sulfa (Sulfonamides)] Assessment & Plan Assessment & Plan (1) Hypothyroidism: Status: Acute Code(s): E03.9 - Hypothyroidism, unspecified (2) PTSD (post-traumatic stress disorder): Status: Acute Code(s): F43.10 - Post-traumatic stress disorder, unspecified (3) Bipolar 1 disorder: Status: Acute Code(s): F31.9 - Bipolar disorder, unspecified Greater than 50% of the session was spent on counseling and/or coordination of c are Reason for contiued inpatient stay Substantial Risk for: harm to self, harm to others, inability to function and rapid decompensation
--- NOTE | 2020-07-01 23:50 | PC.NURSE ---
On 07/01/20 at approx 16:00 pt Bernadette Neal was told that her court meeting will continue at 10 am on 07/02/20. Pt received this information by t/w and members of the CARE team. Moments later, Bernadette demanded that staff do a wellness check on her father who lives in [place]. CARE team was able to contact Bernadette's father via a zoom meeting and was able to physical speak and talk with her father.He assured staff that he was safe. BERNADETTE was also informed that she will make a phone call to her father and that he will be calling her shortly after there zoom meeting. Bernadette demanded that staff continue to do a wellness check on her father and to call the [place] police to do a wellness check. Bernadette became upset and became confrontational with other clients on the unit and demanding security on the unit.
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
== END 2020-07-02 17:45 | disposition home or self-care (01) | DRG 885 ==
LOC: HO.ED 06-17 01:48 → HO.PM5 06-17 02:46
PROVIDERS: Emergency Medicine; Nurse Practitioner Family; Admitting Provider Psychiatry & Neurology Psychiatry; Emergency Provider Emergency Medicine Emergency Medical Services; Visit Provider Clinical Nurse Specialist Psychiatric/Mental Health, Adult
DX: F31.9 Bipolar disorder, unspecified (principal); F41.1 Generalized anxiety disorder; Z88.2 Allergy status to sulfonamides; Z20.822 Contact with and (suspected) exposure to COVID-19; Z91.14 Patient's other noncompliance with medication regimen; F43.10 Post-traumatic stress disorder, unspecified; K30 Functional dyspepsia; E03.9 Hypothyroidism, unspecified; Z79.890 Hormone replacement therapy; Z79.899 Other long term (current) drug therapy
CPT/HCPCS: 36415; 76700; 76830; 76856; 80048; 80076; 80178; 80307; 81001; 81025; 84443; 84702; 85025; 87635; 93005; 99285

== ENCOUNTER → 2022-06-30 10:18 | Outpatient (BNVA) | payer MEDICARE, MEDICAID, SELFPAY | PROVIDERS: Visit Provider Physician Assistant Surgical | DX: Z13.89 Encounter for screening for other disorder (principal) ==

== ENCOUNTER → 2022-07-03 08:43 | Outpatient (BNVA) | payer MEDICARE, MEDICAID, SELFPAY | PROVIDERS: Visit Provider Surgery | DX: E66.01 Morbid (severe) obesity due to excess calories (principal); E03.9 Hypothyroidism, unspecified; E78.5 Hyperlipidemia, unspecified; F43.10 Post-traumatic stress disorder, unspecified; F31.9 Bipolar disorder, unspecified; Z68.42 Body mass index [BMI] 45.0-49.9, adult | CPT/HCPCS: Q3014 ==

== ENCOUNTER 2022-07-07 09:03 | Outpatient (REF) | payer MEDICARE, MEDICAID, SELFPAY ==
--- NOTE | ~2022-07-07 | XR_ITS ---
EXAMINATION: XR CHEST CLINICAL INFORMATION: Morbid/severe obesity due to excess calories COMPARISON: None TECHNIQUE: 2 views of the chest were obtained. FINDINGS: No significant abnormality is noted involving the heart, lungs, mediastinum, bony thorax or soft tissues. XR/XR chest 2V IMPRESSION: Unremarkable chest examination.
--- NOTE | 2022-07-07 09:08 | ECG_ITS ---
Test Reason : e66.1 Blood Pressure : / mmHG Vent. Rate : 086 BPM Atrial Rate : 086 BPM P-R Int : 148 ms QRS Dur : 086 ms QT Int : 364 ms P-R-T Axes : 063 016 039 degrees QTc Int : 435 ms Normal sinus rhythm Normal ECG When compared with ECG of 16-JUN-2020 23:53, No significant change was found Referred By: Larry Funes Electronically Signed By:OLIVER NAVAS MD
[2022-07-07 09:58] LABS: Basophils Absolute Auto 0.1 X10*3/uL (0.0-0.2); Basophils Percent Auto 0.5 % (0-2); Eosinophils Absolute Auto 0.2 X10*3/uL (0.0-0.4); Eosinophils Percent Auto 2.1 % (0-4); Hematocrit 37.4 % (37.0-47.0); Hemoglobin 12.8 g/dl (12.0-16.0); Imm Gran Abs Auto 0.08 X10*3/uL (0.00-0.03); Imm Gran Pct Auto 0.7 % (0.0-0.4); Lymphocytes Absolute Auto 5.1 X10*3/uL (1.2-4.9); Lymphocytes Percent Auto 46.6 % (20-40); MANUAL DIFF FLAG SCAN; Mean Corpuscular HGB Conc 34.2 g/dl (31.0-35.0); Mean Corpuscular Hemoglobin 30.3 pg (27.0-33.0); Mean Corpuscular Volume 88.4 fL (80.0-98.0); Mean Platelet Volume 10.8 fL (9.4-12.3); Monocytes Absolute Auto 0.7 X10*3/uL (0.1-1.2); Monocytes Percent Auto 6.3 % (2-11); Neutrophils Absolute Auto 4.8 x10*3/uL (2.0-8.3); Neutrophils Percent Auto 43.8 % (45-73); Platelet Count 232 X10*3/uL (160-400); Red Blood Count 4.23 X10*6/uL (4.20-5.50); Red Cell Distribution Width 13.7 % (11.0-16.0); SCAN SMEAR FLAG 1; White Blood Count 10.9 X10*3/uL (4.8-10.8)
[2022-07-07 10:26] LABS: Estimated Average Glucose 105 mg/dL; Hemoglobin A1c % 5.3 %
[2022-07-07 10:41] LABS: SLIDE REVIEW VERIFIED
[2022-07-07 11:03] LABS: Alanine Aminotransferase 16 U/L (0-31); Albumin Level 3.9 g/dL (3.5-5.0); Alkaline Phosphatase 74 U/L (39-117); Anion Gap 12 (12-20); Aspartate Amino Transferase 11 U/L (5-31); Bilirubin Total 0.3 mg/dL (0.0-1.0); Blood Urea Nitrogen 16 mg/dL (9-16); C Reactive Protein 0.72 mg/dL (< or = 0.50); Calcium 8.9 mg/dL (8.4-10.2); Carbon Dioxide 28 mmol/L (22-29); Chloride 101 mmol/L (96-108); Cholesterol 216 mg/dL; Estimated Glomerular Filt Rate > 60; Ferritin 52 ng/mL (10-250); Glucose Random 94 mg/dL (60-115); HDL Cholesterol 32 mg/dL; Insulin 22 uU/mL (2-29); Iron 82 mcg/dL (30-160); LDL Cholesterol Calculated 145 mg/dl; Percent Iron Saturation 24 % (15-50); Potassium 4.4 mmol/L (3.3-5.1); Sodium 137 mmol/L (135-145); Total Iron Binding Capacity 337 mcg/dL (228-428); Total Protein 6.5 g/dL (6.5-8.0); Triglycerides 196 mg/dL; Unsaturated Iron Binding 255 ug/dL; Vitamin B12 518 pg/mL (200-900); Vitamin D 25-OH Total 20.7 ng/mL (>30)
[2022-07-10 15:53] LABS: Calcium (PTHI) 8.9 mg/dL (8.6-10.2); PTHI 27 pg/mL (16-77)
[2022-07-11 06:09] LABS: Zinc 84 mcg/dL (60-130)
[2022-07-12 06:13] LABS: Vitamin A 56 mcg/dL (38-98)
[2022-07-13 16:33] LABS: Vitamin B1 13 nmol/L (8-30)
== END 2022-07-07 09:04 | disposition home or self-care (01) ==
LOC: HO.XRAY 09:03
PROVIDERS: Visit Provider Surgery
DX: E66.01 Morbid (severe) obesity due to excess calories (principal); E03.9 Hypothyroidism, unspecified; E78.5 Hyperlipidemia, unspecified
CPT/HCPCS: 36415; 71046; 80053; 80061; 82306; 82607; 82728; 82746; 83013; 83036; 83525; 83540; 83970; 84425; 84443; 84590; 84630; 85025; 86140; 93005; 99211

== ENCOUNTER 2022-07-07 18:19 | Outpatient (REF) | payer MEDICARE, MEDICAID, SELFPAY ==
[2022-07-09 14:10] LABS: H Pylori Breath Test Negative (Negative)
== END 2022-07-07 18:20 | disposition home or self-care (01) ==
LOC: HO.LNP 18:19
PROVIDERS: Visit Provider Surgery
DX: Z13.89 Encounter for screening for other disorder (principal)
CPT/HCPCS: 83013

== ENCOUNTER → 2022-07-14 10:33 | Outpatient (BNVA) | payer MEDICARE, MEDICAID, SELFPAY | PROVIDERS: Visit Provider Physician Assistant ==

== ENCOUNTER → 2022-07-21 09:53 | Outpatient (BNVA) | payer MEDICARE, MEDICAID, SELFPAY | PROVIDERS: Visit Provider Physician Assistant Surgical ==

== ENCOUNTER → 2022-07-28 10:10 | Outpatient (BNVA) | payer MEDICARE, MEDICAID, SELFPAY | PROVIDERS: Visit Provider Physician Assistant Surgical ==

== ENCOUNTER → 2022-07-31 11:15 | Outpatient (BNVA) | payer MEDICARE, MEDICAID, SELFPAY | PROVIDERS: Visit Provider Dietitian, Registered | DX: E66.01 Morbid (severe) obesity due to excess calories (principal) | CPT/HCPCS: 97802 ==

== ENCOUNTER → 2022-08-04 10:52 | Outpatient (BNVA) | payer MEDICARE, MEDICAID, SELFPAY | PROVIDERS: Visit Provider Surgery | DX: E66.01 Morbid (severe) obesity due to excess calories (principal); Z68.42 Body mass index [BMI] 45.0-49.9, adult | CPT/HCPCS: 99212 ==

== ENCOUNTER 2022-08-11 15:30 | Outpatient (REF) | payer MEDICARE, MEDICAID, SELFPAY ==
--- NOTE | ~2022-08-11 | MM_ITS ---
EXAMINATION: MM SCREENING DIGITAL BREAST TOMOSYNTHESIS, BILATERAL CLINICAL INFORMATION: Screening. Asymptomatic. The lifetime risk of breast cancer based on the Tyrer-Cuzick Model is 11%. COMPARISON: Mammography: 05/09/2019 ([facility]) TECHNIQUE: Digital breast tomosynthesis is performed in both the craniocaudal and mediolateral oblique views along with computer-aided detection (CAD). Synthesized 2D images are generated from the tomosynthesis. FINDINGS: There are scattered areas of fibroglandular density (ACR BI-RADS breast composition Category b). There are no significant masses, abnormal calcifications, or other abnormalities. Parenchymal pattern is similar to prior outside exam. No architectural abnormality. The axilla and skin contours are unremarkable. No significant changes. MM/MM tomosynthesis screening BI IMPRESSION: No mammographic evidence of malignancy. ASSESSMENT: BI-RADS 1: Negative RECOMMENDATION: Routine annual mammography screening. This patient's information was entered into a reminder system with a target due date for their next mammogram.
== END 2022-08-11 15:31 | disposition home or self-care (01) ==
LOC: HO.MAMMO 15:30
PROVIDERS: Visit Provider Physician Assistant Medical
DX: Z12.31 Encounter for screening mammogram for malignant neoplasm of breast (principal)
CPT/HCPCS: 77063; 77067

== ENCOUNTER → 2022-08-28 08:06 | Outpatient (BNVA) | payer MEDICARE, MEDICAID, SELFPAY | PROVIDERS: Visit Provider Surgery | DX: E66.01 Morbid (severe) obesity due to excess calories (principal); Z68.42 Body mass index [BMI] 45.0-49.9, adult | CPT/HCPCS: Q3014 ==

== ENCOUNTER → 2022-08-29 14:39 | Outpatient (BNVA) | payer MEDICARE, MEDICAID, SELFPAY | PROVIDERS: Visit Provider Counselor Mental Health ==

== ENCOUNTER 2022-09-01 08:02 | Outpatient (REF) | payer MEDICARE, MEDICAID, SELFPAY ==
--- NOTE | ~2022-09-01 | FL_ITS ---
EXAMINATION: FL UPPER GI SERIES CLINICAL INFORMATION: Bariatric service evaluation. E66.01. COMPARISON: None TECHNIQUE: Upper GI series is performed using fluoroscopic evaluation in addition to multiple fluoroscopic spot views. The patient is imaged both upright and prone and using both thick and thin barium sulfate along with effervescent granules. Fluoroscopy time: 1.3 minutes DAP: 17.9 Gycm2 Fluoroscopic spot images: 19 FINDINGS: There is normal esophageal motility. There is no obstruction, stricture, or ulceration. There is physiologic herniation at the esophagogastric junction during prone Valsalva maneuver without overt hiatal hernia. No gastroesophageal reflux is demonstrated. The stomach shows no thickened folds or ulcer crater or outlet obstruction. The duodenal bulb is pliable and without ulcer crater or scarring. The post bulbar duodenum the jejunal mucosal pattern are unremarkable. FL/FL upper GI w air IMPRESSION: -Physiologic herniation at the esophagogastric junction during prone Valsalva maneuver without overt hernia. No reflux demonstrated. -No ulceration or scarring. No gastric outlet obstruction.
--- NOTE | ~2022-09-01 | US_ITS ---
EXAMINATION: US COMPLETE ABDOMEN WITH LIVER ELASTOGRAPHY CLINICAL INFORMATION: Obesity COMPARISON: Previous abdominal ultrasound June 2020 TECHNIQUE: Real-time imaging of the abdominal viscera. Noninvasive ultrasound liver fibrosis assessment is performed using Faviola ElastPQ point quantification shear wave elastography (2D-SWE) with a C5-2 MHz transducer. Multiple elastography samples are obtained. FINDINGS: PANCREAS: Normal. ABDOMINAL AORTA: The proximal, middle, and distal aortic segments are normal in caliber. INFERIOR VENA CAVA: Visualized portions are normal. LIVER: Liver echotexture is increased. The liver is normal in size and contour.. No focal lesion or intrahepatic biliary duct dilatation. The right lobe measures 17 cm in length. The left lobe measures 14 cm in length. Portal flow is normal/hepatopedal Shear wave liver elastography median stiffness is 1.6 m/s (reference: normal median stiffness is 1.3 m/s or less). IQR/median stiffness to assess sampling precision is 0.13 (reference: good quality data set is IQR/median stiffness of 0.15 or less). GALLBLADDER: New linear echogenic shadowing density in the neck of the gallbladder measuring 0.5 x 0.4 x 11 mm. COMMON BILE DUCT: Normal in caliber measuring 0.3 cm in diameter. RIGHT KIDNEY: Normal. No hydronephrosis. No renal calculi or focal parenchymal lesions. The kidney measures 12.5 cm in maximum dimension. LEFT KIDNEY: Normal. No hydronephrosis. No renal calculi or focal parenchymal lesions. The kidney measures 11.3 cm in maximum dimension. SPLEEN: Normal. The spleen measures 12.6 cm in maximum dimension. 1.4 x 1.8 cm splenule FREE FLUID: None. US/US abdomen comp w elastography IMPRESSION: 1. Impression: Echogenic liver. New linear echogenic density in the neck of the gallbladder measuring 0.5 x 0.4 x 1.1 cm. Differential would include polyp, gallstone and sludge. 2. Liver elastography: Adequate liver sampling. Normal liver stiffness. REFERENCE: Society of Radiologists in Ultrasound Liver Stiffness Thresholds (2020): LIVER STIFFNESS THRESHOLDS: *Liver Stiffness equal or less than 1.3 m/s: High probability of being normal. *Liver Stiffness less than 1.7 m/s: In the absence of other known clinical signs, rules out compensated advanced chronic liver disease. *Liver Stiffness 1.7-2.1 m/s: Suggestive of compensated advanced chronic liver disease but need further test for confirmation. *Liver Stiffness over 2.1 m/s: Rules in compensated advanced chronic liver disease. *Liver Stiffness over 2.4 m/s: Suggestive of clinically significant portal hypertension. QUALITY OF DATA SET: *IQR/Median value equal or less than 0.15 implies a quality data set. *IQR/Median value over 0.15 implies a poor quality data set. SIGNIFICANT CHANGE FROM PRIOR EXAM: Significant change if liver stiffness measurement is 10% or greater from prior exam. OTHER CONSIDERATIONS: The stage of liver fibrosis may be overestimated in the setting of acute hepatitis, liver inflammation, elevated liver function tests, hepatic vascular congestion, obstructive cholestasis, non-fasting state, and infiltrative diseases such as amyloidosis and lymphoma. In some patients with NAFLD, the liver stiffness thresholds for compensated advanced chronic liver disease may be lower. In causes other than viral hepatitis and NAFLD, liver stiffness thresholds are not well established.
== END 2022-09-01 08:03 | disposition home or self-care (01) ==
LOC: HO.US 08:02
PROVIDERS: Visit Provider Surgery
DX: Z01.818 Encounter for other preprocedural examination (principal); E03.9 Hypothyroidism, unspecified; E78.5 Hyperlipidemia, unspecified; K21.9 Gastro-esophageal reflux disease without esophagitis; E66.9 Obesity, unspecified
CPT/HCPCS: 74246; 76705; 76981

== ENCOUNTER → 2022-09-04 11:10 | Outpatient (BNVA) | payer MEDICARE, MEDICAID, SELFPAY | PROVIDERS: Visit Provider Dietitian, Registered | DX: E66.01 Morbid (severe) obesity due to excess calories (principal); Z68.42 Body mass index [BMI] 45.0-49.9, adult | CPT/HCPCS: 97803 ==

== ENCOUNTER → 2022-09-15 13:26 | Outpatient (BNVA) | payer MEDICARE, MEDICAID, SELFPAY | PROVIDERS: Visit Provider Surgery | DX: K82.4 Cholesterolosis of gallbladder (principal); K76.0 Fatty (change of) liver, not elsewhere classified; E66.01 Morbid (severe) obesity due to excess calories; E03.9 Hypothyroidism, unspecified; F31.9 Bipolar disorder, unspecified; Z68.42 Body mass index [BMI] 45.0-49.9, adult | CPT/HCPCS: 99212 ==

== ENCOUNTER → 2022-09-21 09:30 | Outpatient (BNVA) | payer MEDICARE, MEDICAID, SELFPAY | PROVIDERS: Visit Provider Counselor Mental Health ==

== ENCOUNTER → 2022-09-26 12:58 | Outpatient (BNVA) | payer MEDICARE, MEDICAID, SELFPAY | PROVIDERS: Visit Provider Surgery | DX: E66.01 Morbid (severe) obesity due to excess calories (principal); K82.4 Cholesterolosis of gallbladder; K76.0 Fatty (change of) liver, not elsewhere classified; F31.2 Bipolar disorder, current episode manic severe with psychotic features; F41.9 Anxiety disorder, unspecified; F32.A Depression, unspecified; E55.9 Vitamin D deficiency, unspecified; E78.5 Hyperlipidemia, unspecified; E03.9 Hypothyroidism, unspecified; Z68.42 Body mass index [BMI] 45.0-49.9, adult | CPT/HCPCS: 99212 ==

== ENCOUNTER → 2022-09-29 08:21 | Outpatient (BNVA) | payer MEDICARE, MEDICAID, SELFPAY | PROVIDERS: Visit Provider Surgery | DX: E66.01 Morbid (severe) obesity due to excess calories (principal); Z68.41 Body mass index [BMI] 40.0-44.9, adult | CPT/HCPCS: Q3014 ==

== ENCOUNTER 2022-10-12 06:34 | Day surgery (SDC) | payer MEDICARE, MEDICAID, SELFPAY ==
--- NOTE | 2022-10-10 14:57 | HO.ANESPROP2 ---
Documented by User: Lorna Yuan NP 10/20/22 14:18 HPI - Anesthesia Eval Consult details Narrative: 42yo F for Cholecystectomy Laparoscopic,poss open, PMFSH Active Problems Active Problems: All Active Problems (Updated 10/10/22 @ 09:13 by Urmila Vang RN) Bilateral lower extremity edema (Acute) Hypothyroidism (Acute) Vitamin D deficiency (Acute) Bipolar I, recurrent manic episode, severe with psychotic behavior (Acute) Gall bladder polyp (Acute) NAFLD (nonalcoholic fatty liver disease) (Acute) Anxiety (Acute) Depression (Acute) Hyperlipidemia (Acute) Morbid obesity (Acute) PTSD (post-traumatic stress disorder) (Acute) Bipolar 1 disorder (Acute) Past Medical History Medical History (Updated 10/20/22 @ 10:49 by Monster Matos MD) Anxiety Bipolar 1 disorder Depression LAURYN (generalized anxiety disorder) Molly's disease Hyperlipidemia Morbid obesity PTSD (post-traumatic stress disorder) Family History Family History Mother No problems noted. Father Diabetes Hypertension Brother No problems noted. Daughter No problems noted. Paternal Uncle Leukemia Surgical History Surgical History Hx laparoscopic cholecystectomy (10/12/22) Hx of section Hx of wisdom tooth extraction Social History Social History Household Members: Significant Other Household Members Other:: 1 Housing: Apartment Do you presently have visiting nurse or other home services: No Alcohol intake: never Patient Tobacco Use Status: Never used Tobacco service: No Sexual orientation: Straight/Heterosexual Meds Allergies Allergy/AdvReac Type Severity Reaction Status Date / Time Sulfa (Sulfonamide Allergy Unknown RASH Verified 10/20/22 10:43 Antibiotics) [Sulfa (Sulfonamides)] Home Medications Medication Instructions Recorded Confirmed Last Taken Type bupropion HCl 300 mg 24 hr tablet, 300 mg PO QAM 06/30/22 10/20/22 10/12/22 History extended release (Wellbutrin XL) divalproex 500 mg tablet,delayed 1,000 mg PO BEDTIME 06/30/22 10/20/22 Unknown History release (Depakote) haloperidol 0.5 mg tablet 0.5 mg PO BEDTIME 06/30/22 10/20/22 Unknown History levothyroxine 88 mcg capsule 88 mcg PO DAILY 06/30/22 10/20/22 10/12/22 History Exam Exam Date and Time: October 10, [id number] Pertinent Lab Results Pertinent Lab Results: Laboratory Tests 07/07/22 07/07/22 09:22 09:22 WBC 10.9 H Hgb 12.8 Hct 37.4 Plt Count 232 Sodium 137 Potassium 4.4 Chloride 101 Carbon Dioxide 28 BUN 16 Creatinine 0.80 Narrative Narrative: EKG 07/2022 Vent. Rate : 086 BPM ? ? Atrial Rate : 086 BPM ?? P-R Int : 148 ms? QRS Dur : 086 ms ? ? QT Int : 364 ms ? ? ? P-R-T Axes : 063 016 039 degrees ?? QTc Int : 435 ms ? Normal sinus rhythm Normal ECG When compared with ECG of 16-JUN-2020 23:53, No significant change was found Assessment and Plan Assessment Anesthesia Assessment: Chart Reviewed Documented by User: Pete Dean MD 10/24/22 17:12 [facility] Past Medical History Medical History (Updated 10/20/22 @ 10:49 by Monster Matos MD) Anxiety Bipolar 1 disorder Depression LAURYN (generalized anxiety disorder) Molly's disease Hyperlipidemia Morbid obesity PTSD (post-traumatic stress disorder) Family History Family History Mother No problems noted. Father Diabetes Hypertension Brother No problems noted. Daughter No problems noted. Paternal Uncle Leukemia Family history of problems with anesthesia: No Surgical History Surgical History Hx laparoscopic cholecystectomy (10/12/22) Hx of section Hx of wisdom tooth extraction History of Problems with Anesthesia: No Social History Social History Household Members: Significant Other Household Members Other:: 1 Housing: Apartment Do you presently have visiting nurse or other home services: No Alcohol intake: never Patient Tobacco Use Status: Never used Tobacco service: No Sexual orientation: Straight/Heterosexual Meds Allergies Allergy/AdvReac Type Severity Reaction Status Date / Time Sulfa (Sulfonamide Allergy Unknown RASH Verified 10/20/22 10:43 Antibiotics) [Sulfa (Sulfonamides)] Home Medications Medication Instructions Recorded Confirmed Last Taken Type bupropion HCl 300 mg 24 hr tablet, 300 mg PO QAM 06/30/22 10/20/22 10/12/22 History extended release (Wellbutrin XL) divalproex 500 mg tablet,delayed 1,000 mg PO BEDTIME 06/30/22 10/20/22 Unknown History release (Depakote) haloperidol 0.5 mg tablet 0.5 mg PO BEDTIME 06/30/22 10/20/22 Unknown History levothyroxine 88 mcg capsule 88 mcg PO DAILY 06/30/22 10/20/22 10/12/22 History Exam Airway Mallampati Class: II TM Dist: >3cm Assessment and Plan Assessment Anesthesia Assessment: Anesthesia Plan Discussed Final Anesthetic Review Family History of Problems with Anesthesia: No History of Problems with Anesthesia: No NPO: Yes ASA Class: III Final Preanesthetic Review: No Changes in Pt Med Stat, Meds/Allgs Chart Reviewed, Consent Obtained/Reviewed and Anes Risks/Benef Reviewed Patient Risk: Intermediate Procedure Risk: Low Anesthetic Plan Anesthetic Plan: GA Disposition: Standard PACU
[2022-10-12] VITALS (8 sets, daily range): BP systolic 125–142; BP diastolic 72–88; PULSE 66–92; RESP 16; TEMP 36.2–36.6; O2SAT 95–99; BMI 44.8
--- NOTE | 2022-10-12 06:44 | P.OP_ITS ---
Operative Note Operative Note Date of Service: 10/12/22 Narrative: Preop diagnosis: [Abnormal gallbladder identified preoperative bariatric surgery] Postop diagnosis: [same] Procedure: [] Surgeon: Monster Matos MD Assist: [] Anesthesia: [GET, Marcaine, 0.5% with epi] Estimated blood loss: [3cc] Specimen: [Gallbladder with contents] Intraoperative findings: [Filmy adhesions from the duodenum and omentum consistent with bouts of chronic calculous cholecystitis were noted and had to carefully be lysed in order to complete surgery; critical view of safety demonstrated: Cystic duct 4-5 mm; cystic artery 3 mm] Indications: [The patient is a 42-year-old woman with a lifelong struggle with obesity who is in [facility] program. As part of her workup, she underwent an abdominal ultrasound that showed worrisome anomalies that could affect her bariatric surgery, so she was sent to discuss elective cholecystectomy. I explained the symptoms of biliary colic and potential for unexpected biliary problems; in discussion, the patient wanted to proceed with laparoscopic cholecystectomy. I reviewed the option of continued observation and 2nd opinion which was declined. I also reviewed the inherent risks to surgery which include, but are not limited to: Bleeding that could require another operation or blood transfusion, the need for open surgery, the unlikely but possible issue of bile leak that could require an ERCP, the risk of retained common duct stones that could require an ERCP, the risk of common bile duct injury which would require transfer to a larger institution for another operation. Patient seemed to understand her options, declined a special forces specialist or 2nd opinion and wants to proceed. ] Procedure: [The patient was identified in preoperative holding and again in the operating room and placed supine on the table. An appropriate time-out was performed and preemptive local used at all trocar insertion sites. I began at the patient's supraumbilical midline and placed a Veress needle through a stab incision. An appropriate drop test was performed. The needle was connected to high flow and opening pressures were 7 mmHg. A pneumoperitoneum of 15 mmHg was then obtained using carbon dioxide and I accessed the patient's abdomen through the right side of the abdomen in the anterior axillary line at the level of the umbilicus using a 5 mm Optiview trocar and 30 degree/5 mm laparoscopic without incident. Next a a 5 mm epigastric and 5 mm right subcostal port were placed with preemptive analgesia under direct laparoscopic vision and limited lysis of adhesions adding about 5 minutes to the case was performed to dissect omentum from the umbilical area to allow placement of a 12 mm trocar. The gallbladder was clearly identified and grasped by its fundus. It was retracted cranially and adhesions from the duodenum and omentum were demonstrated. Careful dissection with scissors was used to cut filmy adhesions to avoid injury to the duodenum. Once the lysis of adhesions was completed, the gallbladder was retracted fully to demonstrate the cystic triangle. Dissection was begun laterally in the cystic triangle. The cystic duct was identified at its junction on the gallbladder and dissection began laterally, then ci rcumferentially dissected using the [place] dissector and hook. The cystic artery was then carefully identified and circumferentially dissected. Once dissection of both structures was complete and the critical view of safety demonstrated, the duct and artery were double clipped proximally and once distally and sharply divided. Electrocautery was used to remove the gallbladder from its fossa on the liver. Liver bed was inspected for hemostasis and the clips were noted to be on the respective structures. The gallbladder was placed in an Endo-Catch bag and delivered through the umbilicus under direct laparoscopic vision. The abdomen was again inspected with the laparoscoped and a abdomen deflated to assess for hemostasis which was good. The patient was returned to neutral position, the abdomen deflated and the fascia of the supraumbilical incision closed with interrupted Vicryl sutures. Skin was closed with 4-0 Monocryl subcuticular sutures. Mastisol and Steri-Strips were applied followed by Band- Aids. The patient tolerated the procedure well and was extubated recovered in stable condition. All sponge instrument counts were correct x2. At the patient's request I called her mother, Lita at [phone] to apprise her of the operation and post-op plan. Her questions seemed to be satisfactorily answered.
--- NOTE | 2022-10-12 06:44 | MHC.SHP ---
Pre-Procedural Eval Section A Date of Service: 10/12/22 The patient is an INPATIENT: No The History & Physical has been completed within 30 days and I have reviewed it.: Yes Section B Chief Complaint: Cholesterolosis of gallbladder Allergies: Allergies Allergy/AdvReac Type Severity Reaction Status Date / Time Sulfa (Sulfonamide Allergy Unknown RASH Verified 10/10/22 09:25 Antibiotics) [Sulfa (Sulfonamides)] Plan I have reviewed the history and physical and performed a pertinent physical examination on my patient. No changes have occurred unless specified. Time Spent With Patient Time: Total time managing care of this patient today ____ minutes.
[2022-10-12 08:00] LABS: UPreg QC Valid YES; Urine Pregnancy NEGATIVE (NEGATIVE)
[2022-10-12] MEDS: Lactated Ringers 1,000 ML 100 ML IVCONT (08:19)
--- NOTE | 2022-10-12 11:23 | PM.EVENT ---
Event Note Date of Service: 10/12/22 Event Note: Please note that the patient has been placed on fundoparninux starting tomorrow, October 13, 2022 due to her laparoscopic cholecystectomy and laparoscopic sleeve gastrectomy. Time Spent With Patient Time: Total time managing care of this patient today ____ minutes.
== END 2022-10-12 13:30 | disposition home or self-care (01) ==
LOC: HO.SSS 06:35
PROVIDERS: Nurse Practitioner; PCP Physician Assistant Medical; Visit Provider Surgery
PROC: 0FT44ZZ Resection of Gallbladder, Percutaneous Endoscopic Approach (ICD-10-PCS; CPT 47562; principal; 2022-10-12 09:10)
DX: K80.10 Calculus of gallbladder with chronic cholecystitis without obstruction (principal); K82.8 Other specified diseases of gallbladder; E66.01 Morbid (severe) obesity due to excess calories; Z68.42 Body mass index [BMI] 45.0-49.9, adult; F31.2 Bipolar disorder, current episode manic severe with psychotic features; F41.1 Generalized anxiety disorder; F43.10 Post-traumatic stress disorder, unspecified; K76.0 Fatty (change of) liver, not elsewhere classified; E78.5 Hyperlipidemia, unspecified; E55.9 Vitamin D deficiency, unspecified; E06.3 Autoimmune thyroiditis; Z79.899 Other long term (current) drug therapy; Z88.2 Allergy status to sulfonamides
CPT/HCPCS: 47562; 81025; 88304; J0131; J0690; J1100; J1170; J2250; J2405; J3010

== ENCOUNTER → 2022-10-20 08:15 | Outpatient (BNVA) | payer MEDICARE, MEDICAID, SELFPAY | PROVIDERS: PCP Physician Assistant Medical; Visit Provider Surgery | DX: E66.01 Morbid (severe) obesity due to excess calories (principal); E03.9 Hypothyroidism, unspecified; K80.10 Calculus of gallbladder with chronic cholecystitis without obstruction; Z90.49 Acquired absence of other specified parts of digestive tract; Z68.41 Body mass index [BMI] 40.0-44.9, adult | CPT/HCPCS: 99212; Q3014 ==

== ENCOUNTER 2022-10-27 09:50 | Outpatient (REF) | payer MEDICARE, MEDICAID, SELFPAY ==
[2022-10-27 10:45] LABS: Basophils Absolute Auto 0.1 X10*3/uL (0.0-0.2); Basophils Percent Auto 0.4 % (0-2); Eosinophils Absolute Auto 0.2 X10*3/uL (0.0-0.4); Eosinophils Percent Auto 1.7 % (0-4); Hematocrit 39.7 % (37.0-47.0); Hemoglobin 13.6 g/dl (12.0-16.0); Imm Gran Abs Auto 0.03 X10*3/uL (0.00-0.03); Imm Gran Pct Auto 0.3 % (0.0-0.4); Lymphocytes Absolute Auto 5.8 X10*3/uL (1.2-4.9); Lymphocytes Percent Auto 50.7 % (20-40); MANUAL DIFF FLAG SCAN; Mean Corpuscular HGB Conc 34.3 g/dl (31.0-35.0); Mean Corpuscular Hemoglobin 30.2 pg (27.0-33.0); Mean Corpuscular Volume 88.2 fL (80.0-98.0); Mean Platelet Volume 11.1 fL (9.4-12.3); Monocytes Absolute Auto 0.5 X10*3/uL (0.1-1.2); Monocytes Percent Auto 4.5 % (2-11); Neutrophils Absolute Auto 4.8 x10*3/uL (2.0-8.3); Neutrophils Percent Auto 42.4 % (45-73); Platelet Count 226 X10*3/uL (160-400); SCAN SMEAR FLAG 1; White Blood Count 11.4 X10*3/uL (4.8-10.8)
[2022-10-27 10:54] LABS: Estimated Average Glucose 108 mg/dL; Hemoglobin A1c % 5.4 %
[2022-10-27 10:56] LABS: Estimated Average Glucose 108 mg/dL; Hemoglobin A1c % 5.4 %
[2022-10-27 10:57] LABS: Prothrombin Time 10.9 SEC (10.0-13.1)
[2022-10-27 11:00] LABS: Partial Thromboplastin Time 27.6 SEC (26.0-36.4)
[2022-10-27 11:52] LABS: SLIDE REVIEW VERIFIED
[2022-10-27 12:32] LABS: Valproate 49.9 mcg/mL (50.0-100.0)
[2022-10-27 12:38] LABS: Alanine Aminotransferase 16 U/L (0-31); Alkaline Phosphatase 82 U/L (39-117); Aspartate Amino Transferase 10 U/L (5-31); Bilirubin Direct 0.1 mg/dL (0.0-0.5); Bilirubin Total 0.4 mg/dL (0.0-1.0); Glucose Fasting 90 mg/dL (60-99); Total Protein 6.7 g/dL (6.5-8.0)
[2022-10-27 12:48] LABS: Insulin 17 uU/mL (2-29)
[2022-10-27 13:15] LABS: Alanine Aminotransferase 15 U/L (0-31); Alkaline Phosphatase 81 U/L (39-117); Anion Gap 11 (12-20); Aspartate Amino Transferase 10 U/L (5-31); Bilirubin Total 0.4 mg/dL (0.0-1.0); Blood Urea Nitrogen 9 mg/dL (9-16); C Reactive Protein 0.62 mg/dL (< or = 0.50); Calcium 9.1 mg/dL (8.4-10.2); Carbon Dioxide 25 mmol/L (22-29); Chloride 106 mmol/L (96-108); Cholesterol 233 mg/dL; Estimated Glomerular Filt Rate > 60; Glucose Random 92 mg/dL (60-115); HDL Cholesterol 31 mg/dL; LDL Cholesterol Calculated 166 mg/dl; Potassium 4.1 mmol/L (3.3-5.1); Sodium 138 mmol/L (135-145); Total Protein 6.9 g/dL (6.5-8.0); Triglycerides 181 mg/dL
== END 2022-10-27 09:51 | disposition home or self-care (01) ==
LOC: HO.LAB 09:50
PROVIDERS: Psychiatry & Neurology Psychiatry; Visit Provider Surgery
DX: E66.01 Morbid (severe) obesity due to excess calories (principal); F31.12 Bipolar disorder, current episode manic without psychotic features, moderate
CPT/HCPCS: 36415; 80053; 80061; 80076; 80164; 82947; 83036; 83525; 84443; 85025; 85610; 85730; 86140; 86850; 86900; 86901

== ENCOUNTER → 2022-10-30 10:07 | Outpatient (BNVA) | payer MEDICARE, MEDICAID, SELFPAY | PROVIDERS: PCP Physician Assistant Medical; Visit Provider Surgery ==

== ENCOUNTER 2022-11-03 | Outpatient (REF) | payer MEDICARE, MEDICAID, SELFPAY ==
[2022-10-10 09:26] VITALS: BMI 44.6
[2022-10-26 10:34] VITALS: BMI 43.2
--- NOTE | 2022-10-28 17:12 | MHC.SHP ---
Pre-Procedural Eval Section A Date of Service: 10/28/22 The patient is an INPATIENT: Yes The History & Physical has been completed within 30 days and I have reviewed it.: No Section B Chief Complaint: obesity Relevant Family History (Specify if Yes): No Relevant Social History: None Present Medications: None Medical History: No relevant PMH History of Previous Operations: No relevant previous surgery Allergies: Allergies Allergy/AdvReac Type Severity Reaction Status Date / Time Sulfa (Sulfonamide Allergy Unknown RASH Verified 10/20/22 10:43 Antibiotics) [Sulfa (Sulfonamides)] Review of Systems Sugical H&P ROS: Negative: Constitution, Cardiovascular, Respiratory, Neurological, Psychiatric, Hem-Onc, Allergic/Immunologic, Gastrointestinal, Genitourinary, Musculoskeletal, Integumentary, Endocrine and Eyes/Ears/Nose/Throat Exam Surgical H&P Exam: Normal: HEENT, Normal: Heart, Normal: Lungs, Normal: Extremities, Normal: Abdomen, Normal: Skin and Normal: Neurological Plan Diagnosis/Plan: Unchanged I have reviewed the history and physical and performed a pertinent physical examination on my patient. No changes have occurred unless specified. Time Spent With Patient Time: Total time managing care of this patient today ____ minutes.
== END 2022-11-03 00:01 | disposition home or self-care (01) ==
LOC: HO.PAT
PROVIDERS: PCP Physician Assistant Medical; Visit Provider Surgery
DX: Z01.818 Encounter for other preprocedural examination (principal); E66.9 Obesity, unspecified
CPT/HCPCS: 86850; 86900; 86901

== ENCOUNTER 2022-12-01 09:13 | Outpatient (AMB) | payer OTHER, SELFPAY ==
--- NOTE | 2022-12-01 09:19 | A.OFFVIS_ITS ---
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 Required: No Allergies Sulfa (Sulfonamide Antibiotics) [Sulfa (Sulfonamides)] Allergy (Unknown, Verified 12/01/22 09:20) RASH Medication List - Last Reconciled 12/01/22 by ZOE Manning blood pressure monitor As directed bupropion HCl (Wellbutrin XL) 300 mg PO QAM cholecalciferol (vitamin D3) 125 mcg PO DAILY divalproex (Depakote) 1,000 mg PO BEDTIME haloperidol 0.5 mg PO BEDTIME levothyroxine 88 mcg PO DAILY ondansetron 4 mg PO Q12H pantoprazole 40 mg PO DAILY polyethylene glycol 3350 (Miralax) 17 grams PO DAILY sucralfate 10 mL PO BID HPI HPI Comments History of Present Illness Details 42 yo female returns for SWL pre-op follow up She was scheduled for surgery on 11/03/22 but changed her mind last minute. She states she regrets her decision to hold off on her surgery she wants to reschedule it. weight today 242.8 with a BMI of 43.7 Weight loss to date 20 pounds or 7.6 % TBWl (initial weight on 07/03/22 was 262.8 pounds) Meal plan: 1/2 bar (ZP) 8-9 am 1 Pure protein shakes (1/2 scoop in almond milk), 10-12 noon Bar 1-3 bar 4-6 meal at 7 pm 10 forks and 10 forks 1/2 bar 10-11 pm Drinking 64 oz water or more daily. exercise plan: None, has gym membership, not going not walking outside. [facility] Medical History Anxiety Bipolar 1 disorder Depression LAURYN (generalized anxiety disorder) Habitual snoring Molly's disease Hyperlipidemia Morbid obesity PTSD (post-traumatic stress disorder) Surgical History Hx laparoscopic cholecystectomy (10/12/22) Hx of section Hx of wisdom tooth extraction Family History Mother No problems noted. Father Diabetes Hypertension Brother No problems noted. Daughter No problems noted. Paternal Uncle Leukemia Social History Household Members: Significant Other Household Members Other:: 1 Housing: Apartment Are you a primary career development manager to a significant other at home: No Do you presently have visiting nurse or other home services: No Alcohol intake: never Patient Tobacco Use Status: Never used Tobacco service: No Sexual orientation: Straight/Heterosexual Review of Systems Const All systems reviewed & are unremarkable except as noted in HPI and below Physical Exam Vital Signs: Last Vital Signs Temp 97.3 F 12/01/22 09:22 Pulse 83 12/01/22 09:22 BP 140/77 H 12/01/22 09:22 Pulse Ox 96 12/01/22 09:22 Oxygen Delivery Method Room Air 12/01/22 09:22 BMI result Body Mass Index 43.7 Const General: healthy appearing and no acute distress Resp Effort & Inspection: normal respiratory effort Auscultation: clear to auscultation bilaterally Cardio Rate: regular rate Rhythm: regular rhythm GI Auscultation: normal bowel sounds Extrem General: Yes normal to inspection Assessment & Plan Assessment & Plan (1) Morbid obesity: Code(s): E66.01 - Morbid (severe) obesity due to excess calories Plan: change meal plan slightly to : 1/2 bar (ZP) 8-9 am 1 Pure protein shakes (1/2 scoop in almond milk), 10-12 noon Bar 1-3 another shake (pure protein 1/4 scoop) 4-6 meal at 7 pm 10 forks and 10 forks 1/2 bar 10-11 pm ( eliminate this last bar if not needed) Emphasized necessity to return to the gym ( [employer] ) and reusme treadmill and bike for 300 + calories daily RTC 12/22/22 to discuss possible re-scheduling of surgery w Dr Hannon Discussed 9-10 pound weight loss by then Coding Level of Care Code Est Pt Level 3 (64929) Diagnoses Morbid obesity E66.01
[2022-12-01 09:22] VITALS: BP 140/77; PULSE 83; TEMP 36.3; O2SAT 96; BMI 43.7
== END 2022-12-01 10:03 | disposition home or self-care (01) ==
PROVIDERS: PCP Physician Assistant Medical; Visit Provider Physician Assistant Surgical
DX: E66.01 Morbid (severe) obesity due to excess calories (principal); Z68.41 Body mass index [BMI] 40.0-44.9, adult
CPT/HCPCS: 99213

== ENCOUNTER → 2022-12-01 09:13 | Outpatient (BNVA) | payer OTHER, SELFPAY | PROVIDERS: PCP Physician Assistant Medical; Visit Provider Physician Assistant Surgical | DX: E66.01 Morbid (severe) obesity due to excess calories (principal); Z68.42 Body mass index [BMI] 45.0-49.9, adult | CPT/HCPCS: 99212 ==

== ENCOUNTER → 2022-12-08 08:38 | Outpatient (BNVA) | payer MEDICARE, MEDICAID, SELFPAY | PROVIDERS: PCP Physician Assistant Medical; Visit Provider Physician Assistant ==

== ENCOUNTER 2022-12-22 08:32 | Outpatient (AMB) | payer OTHER, MEDICAID, SELFPAY ==
--- NOTE | 2022-12-22 14:00 | MHC.OFFVISWM ---
Intake VS Expanded 12/22/22 14:04 Height 5 ft 2.5 in Weight 244 lb 4 oz BMI 44.0 BP 127/84 Body Fat 133.1 Body Fat Percentage 54.5 Free Fat Mass 111.1 Visceral Mass 17.8 Water Mass 87.7 BMR 1,704 Intake Visit Reasons: TV Follow Up SWL Allergies Sulfa (Sulfonamide Antibiotics) [Sulfa (Sulfonamides)] Allergy (Unknown, Verified 12/01/22 09:20) RASH HPI TV Follow Up SWL HPI Details Start time: 1.55pm, End time: 2.10pm ?I spent 10 minutes speaking with the patient on the phone plus an additional 5 minutes reviewing and updating records for a total of 15 minutes HPI Comments History of Present Illness Details Overall weight loss: 18.4lbs, or 7% TBWL On Phentermine Denies any dry mouth, dizziness, foot numbness, irritability, insomnia Is doing 2 Pure protein shakes (1/2 scoop in 8oz almond milk), 2 Zone Perfect protein bars and one meal (8 forks of protein and 8 forks of salad or vegetables) Exercise: doing treadmill 6-7 days per week for 300-400 calories PFSH Medical History Anxiety Bipolar 1 disorder Depression LAURYN (generalized anxiety disorder) Habitual snoring Molly's disease Hyperlipidemia Morbid obesity PTSD (post-traumatic stress disorder) Surgical History Hx laparoscopic cholecystectomy (10/12/22) Hx of section Hx of wisdom tooth extraction Family History Mother No problems noted. Father Diabetes Hypertension Brother No problems noted. Daughter No problems noted. Paternal Uncle Leukemia Social History Household Members: Significant Other Household Members Other:: 1 Housing: Apartment Are you a primary career services assistant to a significant other at home: No Do you presently have visiting nurse or other home services: No Alcohol intake: never Patient Tobacco Use Status: Never used Tobacco service: No Sexual orientation: Straight/Heterosexual Assessment & Plan Assessment & Plan (1) Morbid obesity: Code(s): E66.01 - Morbid (severe) obesity due to excess calories Plan: 1. Continue present nutritional plan of 2 Pure protein shakes (1/2 scoop in 8oz almond milk), 2 Zone Perfect protein bars and one meal (8 forks of protein and 8 forks of salad or vegetables) 2. Exercise: continue treadmill 6-7 days per week for 300-400 calories 3. Continue to send me weight measurements weekly on Fridays 4. We discussed the potential side-effects of the Phentermine such as irritability, dry mouth, difficulty sleeping, dizziness, numbness in feet and high blood pressure. I asked her to get a blood pressure monitor and measure the blood pressure daily in the morning and evening. She needs to send the blood pressure readings daily and to call the office for blood pressure over 140/80 and she understands that. Telehealth Telehealth Location of provider rendering services: practice address Location of patient: address on file Patient Identification confirmed using: Name, : Yes Telehealth method: voice only Patient verbally consented to treatment: Yes Patient verbally consented to billing insurance company: Yes Patient informed of any privacy concerns related to visit: Yes Minutes spent on Phone/Video with Pt.: 15 Coding Level of Care Code Tele Est Pt Level 2 (83064) Diagnoses Morbid obesity E66.01 Time Spent (min) 15
[2022-12-22 14:04] VITALS: BP 127/84; BMI 44.0
== END 2022-12-22 14:11 | disposition home or self-care (01) ==
LOC: HO.HBS 08:32
PROVIDERS: PCP Physician Assistant Medical; Visit Provider Surgery
DX: E66.01 Morbid (severe) obesity due to excess calories (principal); Z68.41 Body mass index [BMI] 40.0-44.9, adult
CPT/HCPCS: 99442

== ENCOUNTER → 2022-12-22 08:32 | Outpatient (BNVA) | payer MEDICARE, MEDICAID, SELFPAY | PROVIDERS: PCP Physician Assistant Medical; Visit Provider Surgery ==

== ENCOUNTER 2023-01-02 10:34 | Outpatient (AMB) | payer MEDICARE, MEDICAID, SELFPAY ==
--- NOTE | 2023-01-02 13:09 | A.OFFVIS_ITS ---
Intake VS Expanded 01/02/23 13:16 Height 5 ft 2.5 in Weight 241 lb 9 oz BMI 43.5 Body Fat 131.3 Body Fat Percentage 54.3 Free Fat Mass 110.5 Visceral Mass 17.5 Water Mass 87 BMR 1,692 Intake Visit Reasons: TV Pre Op LSG 01/09/23 Allergies Sulfa (Sulfonamide Antibiotics) [Sulfa (Sulfonamides)] Allergy (Unknown, Verified 01/02/23 13:10) RASH Medication List - Last Reconciled 01/02/23 by Larry Funes MD blood pressure monitor As directed bupropion HCl (Wellbutrin XL) 300 mg PO QAM divalproex (Depakote) 1,000 mg PO BEDTIME haloperidol 0.5 mg PO BEDTIME levothyroxine 88 mcg PO DAILY ondansetron 4 mg PO Q12H pantoprazole 40 mg PO DAILY phentermine 37.5 mg PO DAILY polyethylene glycol 3350 (Miralax) 17 grams PO DAILY polyethylene glycol 3350 (Miralax) 17 grams PO DAILY sucralfate 10 mL PO BID HPI TV Pre Op LSG 01/09/23 HPI Details Start time: 1.02pm, End time: 1.24pm ?I spent 17 minutes speaking with the patient on the phone plus an additional 5 minutes reviewing and updating records for a total of 22 minutes HPI Comments History of Present Illness Details Overall weight loss: 20.9 lbs, or 7.95% TBWL Is doing 2 Pure protein shakes (1/2 scoop in 8oz almond milk), 2 Zone Perfect protein bars, and one meal (8 forks of protein and 8 forks of salad or vegetables) Exercise: doing treadmill x5-6/wk for 400 calories PFSH Medical History Anxiety Bipolar 1 disorder Depression LAURYN (generalized anxiety disorder) Habitual snoring Molly's disease Hyperlipidemia Morbid obesity PTSD (post-traumatic stress disorder) Surgical History Hx laparoscopic cholecystectomy (10/12/22) Hx of section Hx of wisdom tooth extraction Family History Mother No problems noted. Father Diabetes Hypertension Brother No problems noted. Daughter No problems noted. Paternal Uncle Leukemia Social History Household Members: Significant Other Household Members Other:: 1 Housing: Apartment Are you a primary career development manager to a significant other at home: No Do you presently have visiting nurse or other home services: No Alcohol intake: never Patient Tobacco Use Status: Never used Tobacco service: No Sexual orientation: Straight/Heterosexual Assessment & Plan Assessment & Plan (1) Morbid obesity: Code(s): E66.01 - Morbid (severe) obesity due to excess calories Plan: 1. Plan for lap sleeve gastrectomy including upper GI endoscopy. All tests has been completed and reviewed and the patient is cleared for the surgery. ?If diaphragmatic or ventral hernias are present at time of surgery, these will be repaired laparoscopically as well. Risks and complications were discussed in detail including possible conversion to an open procedure, anastomotic leak, bleeding requiring transfusion, small bowel obstruction, , DVT and pulmonary embolism, cardiac, or pulmonary complications, as halfway complications such as anastomotic ulcer, insufficient weight loss and vitamin deficiencies. I emphasized the importance of close follow-up, adherence to instructions and good communication. So far she has proven to be an excellent communicator and very compliant with all our directions accomplishing a great weight loss. I believe that she is an excellent candidate and she is ready. 2. Preop prescriptions were provided and explained the purpose of each one. Need to be purchased preop. Start Pantoprazole now as you get it from the pharmacy, 1 pill per day. Sucralfate and Zofran are for after surgery as needed. 3. Bowel prep: please do 7 packets ?of Miralax mixing each one with a an 8oz glass of water, crystal light, gatorade zero, or propel ?on 01/07/23 and the same amount on 01/08/23. Continue the protein shakes during? the bowel prep. 4. Needs to purchase 1oz medicine cups . 5. Needs to purchase Children's liquid Tylenol for postop pain control. 6. She needs to stop the Phentermine on 01/07/23 (last pill that day). Avoid aspirin, motrin, Advil, Aleve, Ibuprofen, Naproxyn. Tylenol is OK. 7. She needs to purchase the Celebrate 4:1 protein shakes from the hospital's gift shop. 8. Will do basic preop blood work-up any day between Sunday01/03/23 and Sunday01/05/23 fasting for 12 hours and is scheduled to see the Anesthesiologist prior to the day of surgery. 9. Importance of adherence to postop folllow-up and recommendations was underscored and she understands that. 10. Stop food and bars as of tomorrow 01/03/23 and continue with 4 ?Pure protein shakes (1/2 scoop in 8oz almond milk) at 9am-11am, 12pm-2pm, 3pm-5pm, 6pm-8pm and one more Pure protein shake with ONE scoop in 8oz of almond milk at 9pm-11pm 11. No soups, broths or V8 12. The patient's?medical?history has been reviewed and they are considered low risk for post op DVT and therefore DVT prophylaxis is not considered necessary. Travel after surgery was reviewed. The patient has not disclosed any travel plans during the first 30 days after surgery and they have been advised that within the first 30 days after surgery any bus, plane, train or car travel over 2 hours in duration is contraindicated due to the possibility of developing blood clots from immobility. Any travel, needs to include periods of ambulation of 10 minutes in duration every 2 hours.? Patient was instructed to discuss any plans for travel during this period with their bariatric surgeon.? 13. Please take at the day of surgery the following medications: 14. Stop any control pills and don't use them for one month after surgery 15. Absolutely no smoking or vaping, or marijuana until the surgery and for at least the first 4 weeks. Only nicotine patches are allowed. 16. Send me weight measurements on and then on the day of surgery before you go to the hospital. 17. Avoid any steroids by mouth for any reason. Let me know if someone prescribes them to you (2) Hyperlipidemia: Code(s): E78.5 - Hyperlipidemia, unspecified (3) NAFLD (nonalcoholic fatty liver disease): Code(s): K76.0 - Fatty (change of) liver, not elsewhere classified (4) Hypothyroidism: Comment: TSH 5.18 06/15/20. Pt refused to take her prescribed medication. Hx Molly's Code(s): E03.9 - Hypothyroidism, unspecified Orders: Orders Comprehensive Met. Panel Today E03.9 - Hypothyroidism, unspecified, E66.01 - Morbid (severe) obesity due to excess calories, E78.5 - Hyperlipidemia, unspecified TSH reflex Free T4 Today E03.9 - Hypothyroidism, unspecified, E66.01 - Morbid (severe) obesity due to excess calories, E78.5 - Hyperlipidemia, unspecified Prothrombin Time INR Today E03.9 - Hypothyroidism, unspecified, E66.01 - Morbid (severe) obesity due to excess calories, E78.5 - Hyperlipidemia, unspecified Type and Screen Today E03.9 - Hypothyroidism, unspecified, E66.01 - Morbid (severe) obesity due to excess calories, E78.5 - Hyperlipidemia, unspecified Partial Thromboplastin Time Today E03.9 - Hypothyroidism, unspecified, E66.01 - Morbid (severe) obesity due to excess calories, E78.5 - Hyperlipidemia, unspecified C Reactive Protein Today E03.9 - Hypothyroidism, unspecified, E66.01 - Morbid (severe) obesity due to excess calories, E78.5 - Hyperlipidemia, unspecified Lipid Panel Today E03.9 - Hypothyroidism, unspecified, E66.01 - Morbid (severe) obesity due to excess calories, E78.5 - Hyperlipidemia, unspecified Hemoglobin A1c Today E03.9 - Hypothyroidism, unspecified, E66.01 - Morbid (severe) obesity due to excess calories, E78.5 - Hyperlipidemia, unspecified Complete Blood Count Auto Diff Today E03.9 - Hypothyroidism, unspecified, E66.01 - Morbid (severe) obesity due to excess calories, E78.5 - Hyperlipidemia, unspecified Insulin Today E03.9 - Hypothyroidism, unspecified, E66.01 - Morbid (severe) obesity due to excess calories, E78.5 - Hyperlipidemia, unspecified Medications: New polyethylene glycol 3350 (Miralax) Mix each packet with 8oz of water, Crystal light, or Gatorade zero, or Propel and do 7 packets on 01/07/23 and another 7 packets on 01/08/23 17 grams PO DAILY 7 ea 0RF Z01.818 - Encounter for other preprocedural examination Telehealth Telehealth Location of provider rendering services: practice address Location of patient: address on file Patient Identification confirmed using: Name, : Yes Telehealth method: voice only Patient verbally consented to treatment: Yes Patient verbally consented to billing insurance company: Yes Patient informed of any privacy concerns related to visit: Yes Minutes spent on Phone/Video with Pt.: 22 Coding Level of Care Code Tele Est Pt Level 3 (27350) Diagnoses Morbid obesity E66.01 Hyperlipidemia E78.5 NAFLD (nonalcoholic fatty liver disease) K76.0 Hypothyroidism E03.9 Time Spent (min) 22
[2023-01-02 13:16] VITALS: BMI 43.5
== END 2023-01-02 13:25 | disposition home or self-care (01) ==
LOC: HO.HBS 10:34
PROVIDERS: PCP Physician Assistant Medical; Visit Provider Surgery
DX: E66.01 Morbid (severe) obesity due to excess calories (principal); Z68.41 Body mass index [BMI] 40.0-44.9, adult; E78.5 Hyperlipidemia, unspecified; K76.0 Fatty (change of) liver, not elsewhere classified; E03.9 Hypothyroidism, unspecified
CPT/HCPCS: 99499

== ENCOUNTER → 2023-01-02 10:34 | Outpatient (BNVA) | payer MEDICARE, MEDICAID, SELFPAY | PROVIDERS: PCP Physician Assistant Medical; Visit Provider Surgery ==

== ENCOUNTER 2023-01-05 | Outpatient (REF) | payer OTHER, SELFPAY ==
--- NOTE | 2023-01-05 10:22 | HO.ANESPROP2 ---
HPI - Anesthesia Eval Consult details Narrative: 42yo F for Gastrectomy Sleeve,EGD,poss diaphragmatic hernia,poss ventral hernia,poss open, s/p lap claudette 10/2022 with GA-ETT 7 PMFSH Active Problems Active Problems: All Active Problems (Updated 10/26/22 @ 10:19 by Josefina Ortiz RN) Bilateral lower extremity edema (Acute) Hypothyroidism (Acute) Vitamin D deficiency (Acute) Bipolar I, recurrent manic episode, severe with psychotic behavior (Acute) Gall bladder polyp (Acute) NAFLD (nonalcoholic fatty liver disease) (Acute) Chronic calculous cholecystitis (Acute) S/P laparoscopic cholecystectomy (Acute) Anxiety (Acute) Depression (Acute) Hyperlipidemia (Acute) Morbid obesity (Acute) PTSD (post-traumatic stress disorder) (Acute) Bipolar 1 disorder (Acute) Past Medical History Medical History Anxiety Bipolar 1 disorder Depression LAURYN (generalized anxiety disorder) Habitual snoring Molly's disease Hyperlipidemia Morbid obesity PTSD (post-traumatic stress disorder) Family History Family History Mother No problems noted. Father Diabetes Hypertension Brother No problems noted. Daughter No problems noted. Paternal Uncle Leukemia Family history of problems with anesthesia: No Surgical History Surgical History Hx laparoscopic cholecystectomy (10/12/22) Hx of section Hx of wisdom tooth extraction History of Problems with Anesthesia: No Social History Social History Household Members: Significant Other Household Members Other:: 1 Housing: Apartment Are you a primary veterinarian laboratory animal care to a significant other at home: No Do you presently have visiting nurse or other home services: No Alcohol intake: never Patient Tobacco Use Status: Never used Tobacco service: No Sexual orientation: Straight/Heterosexual Meds Allergies Allergy/AdvReac Type Severity Reaction Status Date / Time Sulfa (Sulfonamide Allergy Unknown RASH Verified 01/02/23 13:10 Antibiotics) [Sulfa (Sulfonamides)] Home Medications Medication Instructions Recorded Confirmed Last Taken Type bupropion HCl 300 mg 24 hr tablet, 300 mg PO QAM 06/30/22 01/02/23 10/12/22 History extended release (Wellbutrin XL) divalproex 500 mg tablet,delayed 1,000 mg PO BEDTIME 06/30/22 01/02/23 Unknown History release (Depakote) haloperidol 0.5 mg tablet 0.5 mg PO BEDTIME 06/30/22 01/02/23 Unknown History levothyroxine 88 mcg capsule 88 mcg PO DAILY 06/30/22 01/02/23 10/12/22 History Exam Exam Date and Time: January 05, 2023 1022 Narrative Narrative: EKG 07/2022 Vent. Rate : 086 BPM ? ? Atrial Rate : 086 BPM ?? P-R Int : 148 ms? QRS Dur : 086 ms ? ? QT Int : 364 ms ? ? ? P-R-T Axes : 063 016 039 degrees ?? QTc Int : 435 ms ? Normal sinus rhythm Normal ECG When compared with ECG of 16-JUN-2020 23:53, No significant change was found Assessment and Plan Assessment Anesthesia Assessment: Chart Reviewed Final Anesthetic Review Family History of Problems with Anesthesia: No History of Problems with Anesthesia: No
== END 2023-01-05 00:01 ==
LOC: HO.PAT
PROVIDERS: Visit Provider Surgery
DX: Z01.818 Encounter for other preprocedural examination (principal); E66.01 Morbid (severe) obesity due to excess calories; E78.5 Hyperlipidemia, unspecified; E03.9 Hypothyroidism, unspecified
CPT/HCPCS: 86850; 86900; 86901

== ENCOUNTER 2023-01-05 09:17 | Outpatient (REF) | payer OTHER, SELFPAY ==
[2023-01-05 10:28] LABS: Basophils Percent Auto 0.4 % (0-2); Eosinophils Absolute Auto 0.1 X10*3/uL (0.0-0.4); Eosinophils Percent Auto 1.2 % (0-4); Hematocrit 41.6 % (37.0-47.0); Hemoglobin 14.3 g/dl (12.0-16.0); Imm Gran Abs Auto 0.03 X10*3/uL (0.00-0.03); Imm Gran Pct Auto 0.3 % (0.0-0.4); Lymphocytes Percent Auto 56.6 % (20-40); MANUAL DIFF FLAG SCAN; Mean Corpuscular HGB Conc 34.4 g/dl (31.0-35.0); Mean Corpuscular Volume 87.4 fL (80.0-98.0); Mean Platelet Volume 11.5 fL (9.4-12.3); Monocytes Absolute Auto 0.5 X10*3/uL (0.1-1.2); Monocytes Percent Auto 4.5 % (2-11); Neutrophils Absolute Auto 4.1 x10*3/uL (2.0-8.3); Platelet Count 258 X10*3/uL (160-400); Red Blood Count 4.76 X10*6/uL (4.20-5.50); Red Cell Distribution Width 13.5 % (11.0-16.0); SCAN SMEAR FLAG 1; White Blood Count 10.9 X10*3/uL (4.8-10.8)
[2023-01-05 10:30] LABS: Lymphocytes Absolute Auto 6.2 X10*3/uL (1.2-4.9)
[2023-01-05 10:37] LABS: Prothrombin Time 11.8 SEC (11.1-13.3)
[2023-01-05 10:39] LABS: Partial Thromboplastin Time 29.6 SEC (26.0-36.4)
[2023-01-05 10:56] LABS: SLIDE REVIEW VERIFIED
[2023-01-05 11:13] LABS: Estimated Average Glucose 103 mg/dL; Hemoglobin A1c % 5.2 % (<6.0)
[2023-01-05 11:43] LABS: Alanine Aminotransferase 17 U/L (0-31); Albumin Level 4.3 g/dL (3.5-5.0); Alkaline Phosphatase 90 U/L (39-117); Anion Gap 15 (12-20); Aspartate Amino Transferase 10 U/L (5-31); Bilirubin Total 0.4 mg/dL (0.0-1.0); Blood Urea Nitrogen 15 mg/dL (9-16); C Reactive Protein 0.57 mg/dL (< or = 0.50); Calcium 9.8 mg/dL (8.4-10.2); Carbon Dioxide 25 mmol/L (22-29); Chloride 102 mmol/L (96-108); Cholesterol 236 mg/dL (<200); Estimated Glomerular Filt Rate > 60; Glucose Random 93 mg/dL (60-115); HDL Cholesterol 29 mg/dL (>40); Insulin 15 uU/mL (2-29); LDL Cholesterol Calculated 163 mg/dL (<100); Potassium 4.1 mmol/L (3.3-5.1); Sodium 138 mmol/L (135-145); TSH reflex Free T4 2.42 uIU/mL (0.32-4.0); Total Protein 7.2 g/dL (6.5-8.0); Triglycerides 224 mg/dL (<150)
== END 2023-01-05 09:18 | disposition home or self-care (01) ==
LOC: HO.LAB 09:17
PROVIDERS: PCP Physician Assistant Medical; Visit Provider Surgery
DX: E03.9 Hypothyroidism, unspecified (principal); E66.01 Morbid (severe) obesity due to excess calories; E78.5 Hyperlipidemia, unspecified
CPT/HCPCS: 36415; 80053; 80061; 83036; 83525; 84443; 85025; 85610; 85730; 86140

== ENCOUNTER 2023-04-17 22:05 | Inpatient (IN) | payer MEDICARE, SELFPAY, OTHER, MEDICAID ==
--- NOTE | ~2023-04-17 | CT_ITS ---
CT HEAD WITHOUT IV CONTRAST CT MAXILLOFACIAL WITHOUT IV CONTRAST INDICATION: Question trauma. COMPARISON: None available. TECHNIQUE: Multidetector CT acquisitions of the head and maxillofacial region were obtained without IV contrast. Multiplanar reformats were acquired and utilized for image interpretation. This CT examination was performed using dose optimization techniques as appropriate, variously including the following: *Automated exposure control *Adjustment of mA and/or kV according to patient size (this includes techniques or standardized protocols for targeted exams where dose is matched to indication/reason for exam; i.e. extremities or head) *Use of iterative reconstruction technique FINDINGS: HEAD: There is no intracranial hemorrhage, hydrocephalus, extra-axial surface collection, midline shift, or other herniation pattern. Montejo to white matter differentiation is diffusely maintained without evidence of an evolved acute territorial infarct. The basilar cisterns are preserved. No significant soft tissue abnormality. No acute osseous abnormality. MAXILLOFACIAL: There are displaced bilateral nasal bone fractures and there is a fracture of the anterior bony nasal septum. No additional maxillofacial fractures. The bony orbits are intact. The TMJs are unremarkable. There is a fluid level within the right maxillary sinus and there is moderate mucosal thickening throughout the remaining paranasal sinuses. There is nasal soft tissue swelling/hematoma. CT/CT head/brain wo IV con IMPRESSION: - No acute intracranial findings. - There are displaced bilateral nasal bone fractures and there is a fracture of the anterior bony nasal septum. There is nasal soft tissue swelling/hematoma.
--- NOTE | ~2023-04-17 | CT_ITS ---
CT HEAD WITHOUT IV CONTRAST CT MAXILLOFACIAL WITHOUT IV CONTRAST INDICATION: Question trauma. COMPARISON: None available. TECHNIQUE: Multidetector CT acquisitions of the head and maxillofacial region were obtained without IV contrast. Multiplanar reformats were acquired and utilized for image interpretation. This CT examination was performed using dose optimization techniques as appropriate, variously including the following: *Automated exposure control *Adjustment of mA and/or kV according to patient size (this includes techniques or standardized protocols for targeted exams where dose is matched to indication/reason for exam; i.e. extremities or head) *Use of iterative reconstruction technique FINDINGS: HEAD: There is no intracranial hemorrhage, hydrocephalus, extra-axial surface collection, midline shift, or other herniation pattern. Montejo to white matter differentiation is diffusely maintained without evidence of an evolved acute territorial infarct. The basilar cisterns are preserved. No significant soft tissue abnormality. No acute osseous abnormality. MAXILLOFACIAL: There are displaced bilateral nasal bone fractures and there is a fracture of the anterior bony nasal septum. No additional maxillofacial fractures. The bony orbits are intact. The TMJs are unremarkable. There is a fluid level within the right maxillary sinus and there is moderate mucosal thickening throughout the remaining paranasal sinuses. There is nasal soft tissue swelling/hematoma. CT/CT facial bones wo IV con IMPRESSION: - No acute intracranial findings. - There are displaced bilateral nasal bone fractures and there is a fracture of the anterior bony nasal septum. There is nasal soft tissue swelling/hematoma.
[2023-04-17 22:14] VITALS: BP 189/108; BP 200/124; PULSE 116; PULSE 123; RESP 20; TEMP 37.3; O2SAT 99; BMI 35.5
[2023-04-17] MEDS: OLANZapine 10 MG VIAL IM (23:15)
[2023-04-17] MEDS: LORazepam 2 MG/ML VIAL IM (23:15)
--- NOTE | 2023-04-17 23:20 | ED_ITS ---
HPI - Psych General Chief Complaint: Psychiatric Symptoms Stated Complaint: SEXT. [address] ERRATIC BEHAVIOR. 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 She denies SI/HI. She is very hyperverbal, paranoid and delusional. She is hard to follow. MD complaint: anxiety and other (delusional) Onset (ago): unknown Duration: other History of same: Yes Relieving factors: none Exacerbating factors: none Context: other (unknown) Associated psychiatric symptoms: delusions Associated symptoms: other (has bruise on face) Related Data Home Medications Medication Instructions Recorded Confirmed bupropion HCl 300 mg 24 hr tablet, 300 mg PO QAM 06/30/22 01/02/23 extended release (Wellbutrin XL) divalproex 500 mg tablet,delayed 1,000 mg PO BEDTIME 06/30/22 01/02/23 release (Depakote) haloperidol 0.5 mg tablet 0.5 mg PO BEDTIME 06/30/22 01/02/23 levothyroxine 88 mcg capsule 88 mcg PO DAILY 06/30/22 01/02/23 Previous Rx's Medication Instructions Recorded blood pressure monitor #1 ea 09/15/22 ondansetron 4 mg disintegrating 4 mg PO Q12H nausea and vomiting 10/20/22 tablet #20 tabs pantoprazole 40 mg tablet,delayed 40 mg PO DAILY #30 tabs 10/20/22 release polyethylene glycol 3350 17 gram 17 g PO DAILY #14 ea 10/20/22 oral powder packet (Miralax) sucralfate 100 mg/mL oral 10 ml PO BID #400 mL 10/20/22 suspension phentermine 37.5 mg tablet 37.5 mg PO DAILY #14 tabs 12/16/22 polyethylene glycol 3350 17 gram 17 g PO DAILY #7 ea 01/02/23 oral powder packet (Miralax) Allergies Allergy/AdvReac Type Severity Reaction Status Date / Time Sulfa (Sulfonamide Allergy Unknown RASH Verified 01/02/23 13:10 Antibiotics) [Sulfa (Sulfonamides)] Review of Systems Review of Systems: ROS unable to be obtained due to patient being uncooperative [facility] Past Medical History Source: old records reviewed Medical History Habitual snoring Anxiety Depression Hyperlipidemia Morbid obesity PTSD (post-traumatic stress disorder) LAURYN (generalized anxiety disorder) Molly's disease Bipolar 1 disorder Surgical History Hx laparoscopic cholecystectomy (10/12/22) Hx of wisdom tooth extraction Hx of section Family History Family History Mother No problems noted. Father Diabetes Hypertension Brother No problems noted. Daughter No problems noted. Paternal Uncle Leukemia Social History Social History Household Members: Significant Other Household Members Other:: 1 Housing: Apartment Are you a primary care team coordinator scheduler to a significant other at home: No Do you presently have visiting nurse or other home services: No Alcohol intake: never Patient Tobacco Use Status: Never used Tobacco Advance Directives: No Advance Directives Information Provided: No service: No Sexual orientation: Straight/Heterosexual Physical Exam Vital Signs: Vital Signs: Last Vital Signs Temp 99.1 F 04/17/23 22:14 Pulse 116 H 04/17/23 22:14 Resp 20 04/17/23 22:14 BP 189/108 H 04/17/23 22:14 Pulse Ox 99 04/17/23 22:14 O2 Del Method Room Air 04/17/23 22:14 BMI result Body Mass Index 35.5 Appearance: Alert. agitated, paranoid about [employer] watching her, talking about being in protocol, disheveled, poor hygiene. Mild acute distress. Eyes: Pupils equal, round and reactive to light. Bilateral old periorbital ecchymosis ENT: Pharynx normal. Small healed abrasion to bride of nose Neck: Normal inspection. Neck supple. CVS: Normal heart rate and rhythm. Respiratory: No respiratory distress. Abdomen: Soft and nontender. Skin: Skin warm and dry. Normal skin color. Normal skin turgor. Dirt all over hands and in nails Extremities: No lower extremity edema. No calf ttp Neuro: Oriented X 3. No motor deficit. No sensory deficit. CN 2-12intact Course Course Course Narrative: Physician observation started at 137am. Patient placed in physician observation because the patient needed more time for labs and CARE team to assess the need for psych admission. currently still refusing CT head Reevaluation(s) Reevaluation #1: labs and CT scan still pending on sign out. Medications Administered Discontinued Medications Generic Name Dose Route Start Last Admin Trade Name Freq PRN Reason Stop Dose Admin Lorazepam 2 mg 04/17/23 22:56 04/17/23 23:08 Lorazepam 1 Mg Tablet PO 04/17/23 22:57 Not Given ONCE ONE Lorazepam 2 mg 04/17/23 23:07 04/17/23 23:15 Lorazepam 2 Mg/Ml Vial IM 04/17/23 23:08 2 mg STAT STA Administration Olanzapine 10 mg 04/17/23 22:56 04/17/23 23:08 Olanzapine Odt 10 Mg Tab.Rapdis TRANSLINGU 04/17/23 22:57 Not Given ONCE ONE Olanzapine 10 mg 04/17/23 23:07 04/17/23 23:15 Olanzapine 10 Mg Vial IM 04/17/23 23:08 10 mg STAT STA Administration Medical Decision Making Medical Decision Making [facility] Narrative: 42 yo female with hypothyroidism and bipolar disorder here with c/o delusions, paranoia, disheveled, agitated - she will not get labs or head CT for her facial injuries which is concerning although they do appear old she is refusing all care and is pacing at times and 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 She is refusing oral medications to calm down. I have concerns for her medical well being will give IM medications given concern for her and staff safety as well as needs to get appropriate medical workup. Differential Diagnosis Differential Diagnoses: The differential diagnosis associated with the presentation includes bipolar, drug abuse, head injury Admission/Observation Consideration of admission/observation: Escalation of care including admission/observation considered observe until workup and CARE team has assessed patient Lab Data [facility] Lab Attestation statement: I reviewed the patient's lab results. Labs: Lab Results 04/17/23 Range/Units 23:42 Urine Color Yellow Urine Appearance Clear Urine pH 6.0 (5.0-9.0) Ur Specific [place] 1.010 (1.005-1.025) Urine Protein Negative (Neg-Trace) mg/dL Urine Glucose (UA) Negative (Negative) mg/dL Urine Ketones Negative (Negative) mg/dL Urine Blood Negative (Negative) Urine Nitrite Negative (Negative) Ur Leukocyte Esterase Negative (Negative) Urine RBC 0-2 (0-2) /HPF Urine WBC 0-5 (0-5) /HPF Ur Squamous Epith Cells 3-5 (0-2) /HPF Urine Bacteria None Seen (None Seen) Hyaline Casts 11-20 (0-2) /LPF Urine Test NEGATIVE (NEGATIVE) Urine Opiates Screen Not Detected (Not Detect) Urine Fentanyl Screen Not Detected (Not Detect) Ur Barbiturates Screen Not Detected (Not Detect) Ur Phencyclidine Scrn Not Detected (Not Detect) Ur Amphetamines Screen Not Detected (Not Detect) U Benzodiazepines Scrn Not Detected (Not Detect) Urine Cocaine Screen Not Detected (Not Detect) U Marijuana (THC) Screen Not Detected (Not Detect) Independent Historian Clinical information obtained from an independent historian. History obtained from or confirmed by: EMS External Record Review External record reviewed: Inpatient record Discharge Plan Discharge Clinical Impression: Bipolar 1 disorder Patient Disposition: Still a Patient Prescriptions: No Action (DME) blood pressure monitor Kit See Rx Instructions .ROUTE .MEDSUPPLY Qty: 1 0RF Rx Instructions: As directed phentermine 37.5 mg tablet 37.5 mg PO DAILY Qty: 14 0RF Rx Instructions: must administer 30 minutes before or 1-2 hours after breakfast divalproex [Depakote] 500 mg tablet,delayed release (DR/EC) 1,000 mg PO BEDTIME haloperidol 0.5 mg tablet 0.5 mg PO BEDTIME bupropion HCl [Wellbutrin XL] 300 mg tablet extended release 24 hr 300 mg PO QAM levothyroxine 88 mcg capsule 88 mcg PO DAILY pantoprazole 40 mg tablet,delayed release (DR/EC) 40 mg PO DAILY Qty: 30 2RF sucralfate 100 mg/mL suspension 10 ml PO BID Qty: 400 2RF ondansetron 4 mg tablet,disintegrating 4 mg PO Q12H Qty: 20 0RF Rx Instructions: Only take one every 12 hours as needed if you have nausea polyethylene glycol 3350 [Miralax] 17 gram powder in packet 17 g PO DAILY Qty: 14 0RF Rx Instructions: Mix each packet with 8oz of water, Crystal light, or Gatorade zero, or Propel and do 7 packets on 11/01/22 and another 7 packets on 11/02/22 polyethylene glycol 3350 [Miralax] 17 gram powder in packet 17 g PO DAILY Qty: 7 0RF Rx Instructions: Mix each packet with 8oz of water, Crystal light, or Gatorade zero, or Propel and do 7 packets on 01/07/23 and another 7 packets on 01/08/23 Interventions: [place]-Suicide Risk Severity Scale Last Done: 04/18/23 00:33
--- NOTE | 2023-04-17 23:47 | MHC.EDTECH ---
pt continues to refuse lab work and cat scan as she states works for [employer] and he won't allow something like this. This is against protocol. RN MADE AWARE.
[2023-04-17 23:51] LABS: Appearance Urine Clear; Color Urine Yellow; Glucose Urine UA Negative (Negative); Leukocyte Esterase Urine Negative (Negative); Nitrite Urine Negative (Negative); UPreg QC Valid YES; Urine Blood Negative (Negative); Urine Ketones Negative (Negative); Urine Pregnancy NEGATIVE (NEGATIVE); Urine Protein Negative (Neg-Trace)
[2023-04-17 23:56] LABS: Amphetamine Screen Urine Not Detected (Not Detect); Barbiturates, Urine Not Detected (Not Detect); Benzodiazepines Screen Urine Not Detected (Not Detect); Cannabinoid Screen Urine Not Detected (Not Detect); Cocaine Screen Urine Not Detected (Not Detect); Fentanyl, urine Not Detected (Not Detect); Opiate Screen Urine Not Detected (Not Detect); Phencyclidine Screen Urine Not Detected (Not Detect)
[2023-04-17 23:58] LABS: Bacteria Urine None Seen (None Seen); RBC Urine 0-2 /HPF (0-2); WBC Urine 0-5 /HPF (0-5)
--- NOTE | 2023-04-18 11:17 | MHC.CARE ---
Pt is no longer insured with [facility] effective 04/06/23 (Reference #:[id number]).
--- NOTE | 2023-04-18 11:58 | MHC.CARE ---
CARE Team speaks with financial counseling regarding setting pt up with a [employer] product.
--- NOTE | 2023-04-18 17:33 | PHA.MEDREC ---
Pharmacy Consult ? Medication Reconciliation Pharmacy has reviewed the medication reconciliation completed by Monisha. Patient on Haloperidol 5 mg, take 0.5 tablet and not haloperidol 0.5 mg tablet. Simona León, PharmD
[2023-04-18 17:38] VITALS: RESP 18
--- NOTE | 2023-04-18 17:46 | PC.NURSE ---
PT DEZ after BHN attempted a home visit and client would not let them inside. Client sent to hospital for non-compliance with medication and decompensation in community. PT carlos in POD. Was able to change attendant without issue. Allowed her belongings to be searched and has labs pending. No behavioral concerns and PT denies SI/HI/AVH. Client gait steady.
--- NOTE | 2023-04-18 17:52 | PC.NURSE ---
Bernadette OOB this morning and agitated with staff, focusing on statements such as that isn't protocol when staff is talking or handing out drinks. Continues to ask about being monitored on camera. Became agitated to the point of yelling on several occasions but was able to calm down with redirection. Client continues to talk about the [employer] and that her investigation is almost complete and we will all be in trouble . Appetite good. pt eating 100% of meals and multiple snacks. Advocating for DC and stating she doesn't belong here . Multiple staff across different disciplines attempted to obtain a Covid test and labs which Bernadette adamantly declines. Unable to transfer to unit until this is completed.
--- NOTE | 2023-04-18 19:06 | PC.NURSE ---
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
[2023-04-18 20:36] VITALS: RESP 20
--- NOTE | 2023-04-18 22:52 | PC.NURSE ---
client ambulates ad nicole self dialoguing periodically, this evening has tried to state to t/w that youre angry when t/w isnt in any way.
[2023-04-19 11:12] LABS: MANUAL DIFF FLAG NO
[2023-04-19 11:15] LABS: Basophils Percent Auto 0.2 % (0-2); Eosinophils Absolute Auto 0.2 X10*3/uL (0.0-0.4); Hemoglobin 12.2 g/dl (12.0-16.0); Imm Gran Abs Auto 0.03 X10*3/uL (0.00-0.03); Imm Gran Pct Auto 0.4 % (0.0-0.4); Lymphocytes Absolute Auto 3.3 X10*3/uL (1.2-4.9); Lymphocytes Percent Auto 39.9 % (20-40); Mean Corpuscular Hemoglobin 28.3 pg (27.0-33.0); Mean Corpuscular Volume 85.8 fL (80.0-98.0); Mean Platelet Volume 10.6 fL (9.4-12.3); Monocytes Absolute Auto 0.7 X10*3/uL (0.1-1.2); Monocytes Percent Auto 8.3 % (2-11); Neutrophils Percent Auto 49.2 % (45-73); Platelet Count 269 X10*3/uL (160-400); Red Blood Count 4.31 X10*6/uL (4.20-5.50); Red Cell Distribution Width 13.8 % (11.0-16.0); White Blood Count 8.2 X10*3/uL (4.8-10.8)
[2023-04-19 11:33] LABS: Alanine Aminotransferase 23 U/L (0-31); Albumin Level 3.8 g/dL (3.5-5.0); Alkaline Phosphatase 94 U/L (39-117); Anion Gap 11 (12-20); Aspartate Amino Transferase 18 U/L (5-31); Bilirubin Total 0.2 mg/dL (0.0-1.0); Blood Urea Nitrogen 13 mg/dL (9-16); Carbon Dioxide 26 mmol/L (22-29); Chloride 105 mmol/L (96-108); Creatinine Clr Calc Pharmacy 114.1; Estimated Glomerular Filt Rate > 60; Glucose Random 105 mg/dL (60-115); Potassium 3.6 mmol/L (3.3-5.1); Sodium 138 mmol/L (135-145); Total Protein 6.8 g/dL (6.5-8.0)
[2023-04-19 12:05] LABS: COVID-19 Test Positive (Negative); IDNOW Serial# 58CA691E
[2023-04-19 12:42] VITALS: BP 181/111; PULSE 88; RESP 15; TEMP 36.6; O2SAT 97
[2023-04-19 14:17] VITALS: RESP 16
--- NOTE | 2023-04-19 14:20 | PC.NURSE ---
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 Bernadette was refusing all labs and imaging this AM but was able to be encouraged to allow us to draw her labs and send her for CT. Covid + and Bernadette was encouraged to wear a mask when out of her room and when she had her mask off she was encouraged to remain in her room with her door closed. Bernadette has been able to follow these directions with minimal issues. Bernadette has stated we are lying about her results and stated I don't have covid all of you have covid . No medications given or requested. Some periods of increased agitation however she is able to be redirected.
[2023-04-19 19:13] VITALS: BP 195/84; PULSE 105; RESP 20; TEMP 37; O2SAT 96
[2023-04-20 07:35] VITALS: RESP 15
--- NOTE | 2023-04-20 07:56 | PC.NURSE ---
PT AMB (I) GAIT STEADY TO BATHROOM AND BTB. PT HAS MASK ON IN [address] (COVID +). PT APPEARS SLIGHTLY MANIC. WILL CONTINUE TO MONITOR.
--- NOTE | 2023-04-20 09:29 | PC.NURSE ---
PT REFUSED 0900 MED STATING THAT I DON'T TAKE SYNTHROID/LEVOTHROXINE . AWARE.
[2023-04-20 11:06] VITALS: BP 165/97; PULSE 104; RESP 15; TEMP 36.4; O2SAT 93
--- NOTE | 2023-04-20 11:10 | MHC.EDTECH ---
Pt asked to do a set of vitals, she stated, after I shower. While she was in the shower, t/w asked if she would like her linen changed, and she said she was not interested. After she came out of the shower, she agreed to a set of vitals. Psych provider said depakote level lab was not necessary, so it was not collected.
--- NOTE | 2023-04-20 11:58 | PM.PSYCN ---
History of Present Illness Date of Service: 04/23/2023 Chief Complaint: SEXT. [address]. ERRATIC BEHAVIOR. NO SI Discussed with referring provider: Yes Sources of Information: patient interviewed, chart reviewed and crisis/core team assessment reviewed HPI Narrative: Interim Hx: pt continues to present with delusions of working for the [employer] and communicating with them while she is here in the hospital. She reports she can disclosed nature of her work but [employer] is aware of everything that is going on here. She is mostly in her room, self dialoguing which she explains she is communicating with [employer]. She denies SI/HI. COVID positive- no signs of respiratory distress, afebrile She continues to decline psychotropic medications. She states she does not have mental illness and does not need them. Past Psychiatric History: IP: 2011, 2017 OP: Dr. Afshin Prieto for psychopharmacolgy; Reports she stopped psychotherapy [facility] Medical History Habitual snoring Anxiety Depression Hyperlipidemia Morbid obesity PTSD (post-traumatic stress disorder) LAURYN (generalized anxiety disorder) Molly's disease Bipolar 1 disorder Surgical History Hx laparoscopic cholecystectomy (10/12/22) Hx of wisdom tooth extraction Hx of section Family History: 2 murder-suicide attempts (maternal side), personality disorder Social History: Lives with boyfriendSukhdev and their dogs. Lost her job when the pandemic began-stays at home and cares for the dogs. Trauma History: Yes Diagnostics Vital Signs (24Hr): Vital Signs - 24 hr 04/19/23 12:42 04/19/23 14:17 04/19/23 19:13 Temperature 97.8 F 98.6 F Pulse Rate 88 105 H Respiratory Rate 15 16 20 Blood Pressure 181/111 H 195/84 H Pulse Oximetry 97 96 Oxygen Delivery Method Room Air Room Air 04/20/23 07:35 04/20/23 11:06 Temperature 97.5 F Pulse Rate 104 H Respiratory Rate 15 15 Blood Pressure 165/97 H Pulse Oximetry 93 Oxygen Delivery Method Room Air BMI result Body Mass Index 35.5 Labs 04/19/23 11:09 04/19/23 11:09 Labs: Laboratory Results - last 48 hr 04/19/23 11:09 WBC 8.2 RBC 4.31 Hgb 12.2 Hct 37.0 MCV 85.8 MCH 28.3 MCHC 33.0 RDW 13.8 Plt Count 269 MPV 10.6 Immature Gran % (Auto) 0.4 Neut % (Auto) 49.2 Lymph % (Auto) 39.9 Cottle % (Auto) 8.3 Eos % (Auto) 2.0 Baso % (Auto) 0.2 Lymph # (Auto) 3.3 Cottle # (Auto) 0.7 Eos # (Auto) 0.2 Baso # (Auto) 0.0 Abs Immat Gran (auto) 0.03 Absolute Neuts (auto) 4.0 Absolute Nucleated RBC 0.000 Nucleated RBC % (auto) 0.0 Sodium 138 Potassium 3.6 Chloride 105 Carbon Dioxide 26 Anion Gap 11 L BUN 13 Creatinine 0.75 Estim Creat Clear Calc 114.1 Estimated GFR > 60 Random Glucose 105 Calcium 9.0 D Total Bilirubin 0.2 AST 18 ALT 23 Alkaline Phosphatase 94 Total Protein 6.8 Albumin 3.8 COVID-19 (SUE) Positive A COVID-19 Clin Com See Note Imaging Radiology Impressions: ITS Impressions Face CT 04/19/23 11:20 IMPRESSION: - No acute intracranial findings. - There are displaced bilateral nasal bone fractures and there is a fracture of the anterior bony nasal septum. There is nasal soft tissue swelling/hematoma. Head CT 04/19/23 11:20 IMPRESSION: - No acute intracranial findings. - There are displaced bilateral nasal bone fractures and there is a fracture of the anterior bony nasal septum. There is nasal soft tissue swelling/hematoma. Mental Status Exam Mental Status Exam Narrative: Appearance: wearing hospital gown, fair hygiene, in NAD Behavior: guarded and minimally cooperative Psychomotor: no agitation or retardation noted Speech: mostly clear, regular rate/rhythm, volume, spontaneous TP: mostly linear TC: suspiciousness, delusions of working for [employer] and communicating with them through cameras in ED SI: none HI: none Mood: fine Affect: irritable, paranoid Insight/judgment: impaired x 2. Naseem/cog: alert, oriented x 3. Medications Medications Current Medications Divalproex Sodium (Divalproex Sodium 500 Mg Tablet.) 1,000 mg PO BEDTIME PRABHJOT Haloperidol (Haloperidol 0.5 Mg Tablet) 2.5 mg PO BEDTIME PRABHJOT Levothyroxine Sodium (Levothyroxine Sodium 88 Mcg Tablet) 88 mcg PO DAILY@0900 PRABHJOT Last Admin: 04/20/23 09:29 Dose: Not Given Allergies Allergies Allergy/AdvReac Type Severity Reaction Status Date / Time Sulfa (Sulfonamide Allergy Unknown RASH Verified 01/02/23 13:10 Antibiotics) [Sulfa (Sulfonamides)] Assessment & Plan Assessment & Plan (1) Schizoaffective disorder, bipolar type: Status: Acute Code(s): F25.0 - Schizoaffective disorder, bipolar type Plan Mrs. Neal is a 42 year-old woman who presents with delusions of working for [employer], some paranoia towards staff and other people here in the hospital. She continues to decline psychiatric medications. PLAN 1. continue bed search for inpatient level of care. 2. continue to offer depakote and antipsychotic. Total time managing care of this patient today ____ minutes.
--- NOTE | 2023-04-20 12:17 | PC.NURSE ---
Patient requesting chicken salad sandwich, only turkey sandwiches gave her one refused mayonnaise. Then asked for whole milk. went in room to eat.
--- NOTE | 2023-04-20 13:53 | MHC.CARE ---
RAD Team conducted a statewide bed search for this individual, however, there were no available beds for a covid+ pt. RAD will continue the bed search tomorrow if deemed appropriate.
--- NOTE | 2023-04-20 16:30 | MHC.EDTECH ---
Patient refused vitals and ,said get out of my room RN aware .
[2023-04-20 17:02] VITALS: BP 175/102; PULSE 109; RESP 17; TEMP 37; O2SAT 98
--- NOTE | 2023-04-20 21:29 | PC.NURSE ---
Addendum entered by Paula Jeronimo RN 04/20/23 21:47: Thony ENRIQUEZ aware of patient's refusal of medication. Original Note: Patient refusing bedtime medication stating that she is allergic to medications. Patient states that she does not take any medications and does not have any disorders.
--- NOTE | 2023-04-21 02:38 | PC.NURSE ---
Patient ambulated to the bathroom, continues to be calm with staff, no s/s of distress noted.
--- NOTE | 2023-04-21 08:17 | PC.NURSE ---
pt comes to nurses station stating I know this isn't the [place], like I'm accustomed to, but I'm wondering if you can order me some werner, they did yesterday for me . t/w called kitchen and requested werner for pt. pt asking for ice with water and diet lexa clarke, 3 creamers, 3 sugars, and whole milk. pt went back to room.
--- NOTE | 2023-04-21 09:02 | PC.NURSE ---
pt consumed breakfast and took shower. pt heard having conversation with self while in bathroom. pt came directly to nurses station after performing hygeine asking if werner had arrived yet. pt pleasantly surprised to see werner order on pt's table in room. door currently closed. pt has been compliant in wearing mask when not in room.
--- NOTE | 2023-04-21 10:31 | MHC.CARE ---
RAD Team conducted a statewide bed search for this individual, unfortunately, there were no available beds for a covid+ pt. RAD will continue the bed search tomorrow if deemed appropriate.
--- NOTE | 2023-04-21 12:43 | PC.NURSE ---
pt comes to nurses station multiple times asking for water, lexa clarke, milk, and sandwich. throughout the day, pt found to be having a full on conversation with no one in the room. pt will occasionally engineer automated equipment front of a camera, stare into it, and pose, sometimes lifting sulaiman up to reveal belly.
--- NOTE | 2023-04-21 14:52 | PC.NURSE ---
t/w asked to speak with pt by stating Bernadette, laurita I ask you a question , to perform the [place] suicide scale screening. pt responded with if you address me by appropriate name.. t/w proceeded to ask what the pt would be preferred to be called. pt responded with you should know, you should all be on the same page . t/w then went through all notes to see if there was any documentation on what the pt prefers to be called. none documented. t/w still unaware on what pt prefers to be called, pt walked away from t/w and shut the door to her room in t/w face.
--- NOTE | 2023-04-21 15:35 | PC.NURSE ---
requested to take pt's vitals, pt stated no . when asked why, pt stated because we're in the middle of a sting operation, can't you tell? And you're not even a real nurse, trust me. as this typewriter repairer was leaving room, pt yelled dumb fucks! pt laying in bed, door closed.
[2023-04-21 16:02] VITALS: BP 166/111; PULSE 112; RESP 20; TEMP 36.8; O2SAT 96
--- NOTE | 2023-04-21 16:23 | PC.NURSE ---
at around 1600, pt asked RACHELLE Ortiz to take her vital signs stating, because you called me by my proper name the other day, I'll allow you to take my blood pressure . vital signs taken and documented in worklist. BP and HR noted to be elevated. when compared with previous vital signs, appears to be pt's normal range. HR could also be elevated due to COVID-19 infection. provider aware of BP/HR and pt refusing medications. no orders in ke[place].
--- NOTE | 2023-04-21 22:00 | PC.NURSE ---
Pt refused medications stated it is against protocol that she is allergic and that we are under investigation.
--- NOTE | 2023-04-22 04:51 | PC.NURSE ---
PT resting quietly with eyes closed. Respirations even and unlabored.
--- NOTE | 2023-04-22 17:56 | PC.NURSE ---
Patient interacting with staff to ask for food/fluids. Repeatedly stating she is part of a major heist and is working with the [employer]. Requesting water with lemon and lobster. When staff offering other snacks patient loudly laughing stating you are all fake nurses, just watch and see what is going to happen to you. Wearing mask and using assigned bathroom d/t covid positive status.
--- NOTE | 2023-04-22 19:11 | PC.NURSE ---
patient appears to remain at rest at present respirations are even and unlabored patient appears in no distress
[2023-04-22 20:58] VITALS: BP 171/96; PULSE 109; RESP 20; TEMP 36.6; O2SAT 95
[2023-04-23 09:52] LABS: COVID-19 Test Positive (Negative); IDNOW Serial# BCCEAD1C
[2023-04-23 14:09] VITALS: RESP 18
--- NOTE | 2023-04-23 15:48 | PC.NURSE ---
Bernadette tested positive for Covid this AM and remains in quarantine and is asked to wear a mask when in the milieu. Bernadette continues to state that the staff are fake patients are fake and she is part of an [employer] sting that her is running that we are all a part of. Observed in her room talking to the camera and gesturing to her self. She stated that this is how she and her are communicating. Bernadette refused her AM levothyroxin. Appetite is good.
--- NOTE | 2023-04-23 19:37 | PC.NURSE ---
patient appears to remain asleep at present respirations are even and unlabored, seems to be coughing less at present, appears in no distress
--- NOTE | 2023-04-23 22:15 | PC.NURSE ---
patient slow to follow directions heading back to her room caliming i am not valling her by her correct name needed gentle yet firm encourgaement to return to her room. t/w called security and reinforced the direction to return to her room, client made claims that i was yelling however i did not raise my voice in redirecting the cleint.
--- NOTE | 2023-04-24 08:37 | MHC.CARE ---
04/23/23 RAD Team conducted a statewide bed search however there are no covid+ beds available at the present time. Her search will be continued 04/24/23 if deemed appropriate.
[2023-04-24 11:15] VITALS: RESP 18
--- NOTE | 2023-04-24 11:30 | PC.NURSE ---
resting in room. covid precautions in place. self-dialoguing.
--- NOTE | 2023-04-24 12:54 | PC.NURSE ---
eating well in room. covid precautions remain. no distress.
--- NOTE | 2023-04-24 12:56 | PC.NURSE ---
provider johnny aware pt continuing to decline vitals b/c they are per pt's statement against protocol.
--- NOTE | 2023-04-24 17:18 | PC.NURSE ---
gave report to bree
--- NOTE | 2023-04-24 17:57 | PC.NURSE ---
pt declined vs- normal respirations. walked well to bathroom. continues to self-dialogue
--- NOTE | 2023-04-24 19:37 | PC.NURSE ---
Assumed care of pt. Pt lying on bed, respirations even and unlabored, no acute distress at this time. Pt watching television. Pt refusing vitals, PM medications and all other assessments and treatments ordered at this time. aware.
--- NOTE | 2023-04-24 22:47 | PC.NURSE ---
Pt presenting at nursing station for sandwiches. Pt has been provided multiple overnight snacks. Speech pressured, but calm and cooperative.
--- NOTE | 2023-04-25 01:18 | PC.NURSE ---
Pt so sleeping at this time, no sign of distress.
--- NOTE | 2023-04-25 05:35 | PC.NURSE ---
pt is sleepint at this time unable to complete [place] scale and psychiatric assessment.
[2023-04-25 10:39] LABS: COVID-19 Test Negative (Negative); IDNOW Serial# BCCEAD1C
--- NOTE | 2023-04-25 13:51 | PC.NURSE ---
PT Covid negative. Will transfer to unit this afternoon. Has been observed being provocative with camera in her room, pulling her scrub top up and revealing her breasts. She has also been observed talking to the camera and when staff ask she reports my is there watching everything for our investigation . More delusional statements made throughout the shift regarding her and the investigation they are conducting that has her here undercover. Appetite good. No behavioral concerns.
--- NOTE | 2023-04-25 14:01 | MHC.CARE ---
Patient's [facility] worker sent patient's [facility] and most recent psychiatry notes. These are in patient's chart.
--- NOTE | 2023-04-25 16:32 | PC.NURSE ---
Bernadette refused VS twice this shift. She responded with This is all part of the investigation and you're all fake .
--- NOTE | 2023-04-25 22:23 | PC.NURSE ---
Pt's belongings included a bag of food from [employer] and an opened container of rice. The food appeared malodorous, and staff disposed of it.
--- NOTE | 2023-04-26 03:02 | PC.ADMIT ---
A white, Upper Sorbian-speaking female, aged 42 years was [facility] as a section 12B at 1630 following [place] [facility]. Pt is known to and has history of outpatient treatment, PHP, and [facility]. Pt has no history of substance related admissions. Pt was [place] [facility] [place] via EMS from [facility] afetr pt was reported to be behaving strangely. Pt arrived at [facility] hyperverbal, delusional, and paranoid. Pt has a history of medication noncompliance and has been missing since February per pt's father. Pt has a history of wandering when in manic unmedicated state. Pt had been living in a home rented from family friends not long before she disappeared. The home was extensively damaged with feces strewn through the home and led to conflict with the home owners. Pt was not willing to participate in the admission except for short answers to questions at times. Pt referred frequently to a big investigation . Pt is suspicious and grandiose. Initially pt refused to enter her assigned room, saying she needed a single. Pt was able to rest in room by end of shift. Pt permitted a skincheck, but would not allow assessment of VS. Pt refused medications. Pt showered upon arrival. Pt has no acute medical issues. It is unknown if pt has providers at this time. UTOX negative. Nurse to Nurse done, admission orders obtained , treatment plan done , but needs to be signed. Pt still needs to complete safety tool. Pt is resting iin room on 15 minute safety checks at this time.
[2023-04-26 07:00] VITALS: BMI 33.8
[2023-04-26 09:18] VITALS: RESP 18
--- NOTE | 2023-04-26 09:44 | HO.PSYADMNOT ---
HPI Date of Service: 04/26/23 Chief Complaint: Bipolar Disorder Sources of Information: patient interviewed, chart reviewed and crisis/core team assessment reviewed HPI Subjective Notes: Knight Warning, Conditional Voluntary and Section 12B Narrative: Patient is a 42-year-old female with history of schizoaffective disorder bipolar type, trauma, who presents floridly manic and disorganized having been brought to the emergency room for disorganized behavior [place] a [place], in the face of going off of her medications this past fall. Patient is difficult with which to engage, defensive, highly irritable, internally preoccupied and with paranoid delusions. Cage Loader gave patient the knight warning and offered her to sign a CV which she declined. Patient loudly reprimanded race and sports book writer for calling her by her 1st name and wanted race and sports book writer to call her ArielleChristina Sun... And said that her would be picking her up soon. She says that race and sports book writer knows about , and throughout the conversation says you know... repeatedly. She initially starts up saying that her collarbone was chisel to on both sides but it has resolved. She says that she was sitting on a bench, under cover, during a big investigation, eating at [employer] when a fake booking police officer came up and said he was worried about her and she ended up coming to the hospital. She says I know all about it...Trust me... It is a big investigation... You know... I know you know... Cage Loader frequently refer to her Louis Sun was coming to pick her up. Patient says she knows there are undercover agents on the unit, fake doctors and fake nurses and that race and sports book writer knows this as well Which is why everything is currently being recorded. Patient refuses medication. Cage Loader contacted outpatient psychiatrist Dr. Afshin Prieto who reports that patient was stable up until this fall on Depakote 1000mg daily, haloperidol 2.5mg daily and bupropion 300mg daily and doing quite well; she has also been stable in the past on Abilify and lithium. Dr. Afshin Prieto says that when patient was off her meds she gets very ill, and has drifted around the country, homeless; however when medicated, she does very well and is a jaleesa person... Past Psychiatric History: IP: 2011, 2017; 2020; other inpatient admissions OP: Dr. Afshin Prieto for psychopharmacolgy; Reports she stopped psychotherapy has done well on Depakote 1000mg daily, haloperidol 2.5mg daily and bupropion 300mg daily; also stable in the past on Abilify and lithium. Once when manic abscond with her child, erratic, crossing state lines Medical Evaluation Reviewed: Yes [facility] Medical History Habitual snoring Anxiety Depression Hyperlipidemia Morbid obesity PTSD (post-traumatic stress disorder) LAURYN (generalized anxiety disorder) Molly's disease Bipolar 1 disorder Surgical History Hx laparoscopic cholecystectomy (10/12/22) Hx of wisdom tooth extraction Hx of section Family History: 2 murder-suicide attempts (maternal side), personality disorder Social History: Unclear current living situation Substance History: UDS negative; no known history of substance abuse Trauma History: Yes Diagnostics Vital Signs (24Hr): Vital Signs - 24 hr 04/26/23 09:18 Respiratory Rate 18 BMI result Body Mass Index 33.8 Labs 04/19/23 11:09 04/19/23 11:09 Labs: Laboratory Results - last 48 hr 04/25/23 10:19 COVID-19 (SUE) Negative COVID-19 Clin Com See Note Imaging Radiology Impressions: ITS Impressions Face CT 04/19/23 11:20 IMPRESSION: - No acute intracranial findings. - There are displaced bilateral nasal bone fractures and there is a fracture of the anterior bony nasal septum. There is nasal soft tissue swelling/hematoma. Head CT 04/19/23 11:20 IMPRESSION: - No acute intracranial findings. - There are displaced bilateral nasal bone fractures and there is a fracture of the anterior bony nasal septum. There is nasal soft tissue swelling/hematoma. Meds/Allergies Meds Home Medications Medication Instructions Recorded Confirmed Type divalproex 500 mg tablet,delayed 1,000 mg PO BEDTIME 06/30/22 04/18/23 History release (Depakote) levothyroxine 88 mcg capsule 88 mcg PO DAILY 06/30/22 04/18/23 History haloperidol 5 mg tablet 2.5 mg PO BEDTIME 12/13/23 12/13/23 History Allergies Allergies Allergy/AdvReac Type Severity Reaction Status Date / Time Sulfa (Sulfonamide Allergy Unknown RASH Verified 01/02/23 13:10 Antibiotics) [Sulfa (Sulfonamides)] Mental Status Exam Mental Status Exam Narrative: Pt is alert and oriented; behavior is manic, loud, irritable, guarded; patient is not in distress; dressed in casual attire and malodorous; pt has B/L black eyes; mood is described as good and affect labile, intense; eye contact appropriate; Speech is moderately pressured, loud volume volume; psychomotor agitation present; thought process goal directed; Thought content is on paranoid and grandiose delusions; denies any SI/HI. Patient internally preoccupied and talking to herself out loud; positive for auditory hallucinations Patients insight and judgment impaired Assessment & Plan Assessment & Plan (1) Schizoaffective disorder, bipolar type: Status: Acute Code(s): F25.0 - Schizoaffective disorder, bipolar type (2) PTSD (post-traumatic stress disorder): Status: Acute Code(s): F43.10 - Post-traumatic stress disorder, unspecified (3) Hypothyroidism: Status: Acute Code(s): E03.9 - Hypothyroidism, unspecified Plan Patient is a 42-year-old female with history of schizoaffective disorder bipolar type, trauma, who presents floridly manic and disorganized having been brought to the emergency room for disorganized behavior [place] a [place], in the face of going off of her medications this past fall. Patient is difficult with which to engage, defensive, highly irritable, internally preoccupied and with paranoid delusions. Cage Loader gave patient the knight warning and offered her to sign a CV which she declined. Patient loudly reprimanded race and sports book writer for calling her by her 1st name and wanted race and sports book writer to call her Bernadette Sun... And said that her would be picking her up soon. She says that race and sports book writer knows about , and throughout the conversation says you know... repeatedly. She initially starts up saying that her collarbone was chisel to on both sides but it has resolved. She says that she was sitting on a bench, under cover, during a big investigation, eating at [employer] when a fake booking police officer came up and said he was worried about her and she ended up coming to the hospital. She says I know all about it...Trust me... It is a big investigation... You know... I know you know... Cage Loader frequently refer to her Louis Sun was coming to pick her up. Patient says she knows there are undercover agents on the unit, fake doctors and fake nurses and that race and sports book writer knows this as well Which is why everything is currently being recorded. Patient refuses medication. Cage Loader contacted outpatient psychiatrist Dr. Afshin Prieto who reports that patient was stable up until this fall on Depakote 1000mg daily, haloperidol 2.5mg daily and bupropion 300mg daily and doing quite well; she has also been stable in the past on Abilify and lithium. Dr. Afshin Prieto says that when patient was off her meds she gets very ill, and has drifted around the country, homeless; however when medicated, she does very well and is a jaleesa person... Impression: Patient is floridly manic and psychotic, malodorous. Patient has 2 black eyes and does not appear to be able to take care of herself. PLAN: 12 B q15 Restarted Depakote ER 1000 mg q.h.s. Restarted Haldol but at increased dose, 5 mg b.i.d. Restarted levothyroxine Recently recovered from COVID Patient educated on: diagnosis and medication risk/benefits Informed Consent: does not understand Reason for continued inpatient stay Substantial Risk for: inability to function Statement Statement: I have reviewed the history and physical and performed a pertinent examination on my patient. No changes have occurred unless specified. If the History and Physical was not performed prior to admission, the Hospitalist's service will be consulted for completing the admission physical. Time Spent With Patient Time: Total time managing care of this patient today ____ minutes.
[2023-04-27 08:00] VITALS: RESP 20
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
--- NOTE | 2023-04-28 01:57 | PC.NURSE ---
Patient refused HS Depakote and Haldol 04/27/23.
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
[2023-04-28 21:20] VITALS: RESP 18
[2023-04-29 19:35] VITALS: RESP 18
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
[2023-05-02 06:00] VITALS: RESP 20
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
[2023-05-02 18:00] VITALS: RESP 18
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
[2023-05-04 08:00] VITALS: RESP 20
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
[2023-05-05 08:27] VITALS: RESP 16
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
[2023-05-06 06:00] VITALS: RESP 18
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
[2023-05-07 08:32] VITALS: RESP 18
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
[2023-05-08 06:00] VITALS: RESP 18
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
[2023-05-08] MEDS: Divalproex Sodium ER 500 MG TAB.ER.24H 1000 MG PO (19:10)
[2023-05-08] MEDS: HaloperidoL 5 MG TABLET PO (19:15)
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
[2023-05-10 06:00] VITALS: RESP 18
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
[2023-05-11 09:18] VITALS: TEMP -17.7; TEMP 0
[2023-05-12 11:22] LABS: Valproate 35.3 mcg/mL (50.0-100.0)
[2023-05-12 11:25] LABS: Alanine Aminotransferase 19 U/L (0-31); Albumin Level 3.9 g/dL (3.5-5.0); Alkaline Phosphatase 96 U/L (39-117); Anion Gap 10 (12-20); Aspartate Amino Transferase 13 U/L (5-31); Bilirubin Total 0.3 mg/dL (0.0-1.0); Blood Urea Nitrogen 12 mg/dL (9-16); Calcium 9.8 mg/dL (8.4-10.2); Carbon Dioxide 29 mmol/L (22-29); Chloride 104 mmol/L (96-108); Creatinine Clr Calc Pharmacy 108.3; Estimated Glomerular Filt Rate > 60; Glucose Random 86 mg/dL (60-115); Potassium 4.2 mmol/L (3.3-5.1); Sodium 139 mmol/L (135-145); Total Protein 6.8 g/dL (6.5-8.0)
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
[2023-05-12 18:00] VITALS: RESP 20
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
[2023-05-14] MEDS: Divalproex Sodium ER 500 MG TAB.ER.24H 1500 MG PO (20:05)
[2023-05-14] MEDS: HaloperidoL 5 MG TABLET 10 MG PO (20:05)
[2023-05-15 08:00] VITALS: RESP 20
[2023-05-15] MEDS: HaloperidoL 5 MG TABLET 10 MG PO ×2 (08:39→20:05)
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
[2023-05-15] MEDS: Divalproex Sodium ER 500 MG TAB.ER.24H 1500 MG PO (20:05)
[2023-05-16] MEDS: Levothyroxine Sodium 88 MCG TABLET PO (10:16)
[2023-05-16] MEDS: HaloperidoL 5 MG TABLET 10 MG PO ×2 (10:17→20:36)
[2023-05-16 11:08] LABS: Basophils Absolute Auto 0.1 X10*3/uL (0.0-0.2); Basophils Percent Auto 0.5 % (0-2); Eosinophils Absolute Auto 0.7 X10*3/uL (0.0-0.4); Hematocrit 44.1 % (37.0-47.0); Hemoglobin 14.9 g/dl (12.0-16.0); Imm Gran Abs Auto 0.06 X10*3/uL (0.00-0.03); Imm Gran Pct Auto 0.4 % (0.0-0.4); Lymphocytes Percent Auto 44.2 % (20-40); MANUAL DIFF FLAG SCAN; Mean Corpuscular HGB Conc 33.8 g/dl (31.0-35.0); Mean Corpuscular Volume 82.9 fL (80.0-98.0); Mean Platelet Volume 11.7 fL (9.4-12.3); Monocytes Absolute Auto 0.7 X10*3/uL (0.1-1.2); Neutrophils Percent Auto 46.9 % (45-73); Platelet Count 272 X10*3/uL (160-400); Red Blood Count 5.32 X10*6/uL (4.20-5.50); Red Cell Distribution Width 14.1 % (11.0-16.0); SCAN SMEAR FLAG 1
[2023-05-16 11:11] LABS: Lymphocytes Absolute Auto 7.5 X10*3/uL (1.2-4.9)
[2023-05-16 11:13] LABS: Ammonia 38 umol/L (13-55)
[2023-05-16 11:17] LABS: Valproate 43.3 mcg/mL (50.0-100.0)
[2023-05-16 11:21] LABS: Alanine Aminotransferase 18 U/L (0-31); Albumin Level 4.2 g/dL (3.5-5.0); Alkaline Phosphatase 103 U/L (39-117); Anion Gap 15 (12-20); Aspartate Amino Transferase 11 U/L (5-31); Bilirubin Total 0.3 mg/dL (0.0-1.0); Blood Urea Nitrogen 12 mg/dL (9-16); Calcium 9.8 mg/dL (8.4-10.2); Carbon Dioxide 24 mmol/L (22-29); Chloride 104 mmol/L (96-108); Creatinine Clr Calc Pharmacy 102.9; Estimated Glomerular Filt Rate > 60; Glucose Random 136 mg/dL (60-115); Potassium 4.2 mmol/L (3.3-5.1); Sodium 139 mmol/L (135-145); Total Protein 7.4 g/dL (6.5-8.0)
[2023-05-16 12:41] LABS: SLIDE REVIEW VERIFIED
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
[2023-05-16] MEDS: Divalproex Sodium ER 250 MG TAB.ER.24H 1750 MG PO (20:36)
[2023-05-17] MEDS: Levothyroxine Sodium 88 MCG TABLET PO (08:58)
[2023-05-17] MEDS: HaloperidoL 5 MG TABLET 10 MG PO ×2 (08:58→20:06)
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
[2023-05-17] MEDS: Divalproex Sodium ER 250 MG TAB.ER.24H 1750 MG PO (20:06)
[2023-05-18] MEDS: HaloperidoL 5 MG TABLET 10 MG PO ×2 (08:32→19:57)
[2023-05-18] MEDS: Levothyroxine Sodium 88 MCG TABLET PO (08:32)
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
[2023-05-18] MEDS: Divalproex Sodium ER 250 MG TAB.ER.24H 1750 MG PO (19:57)
[2023-05-19] MEDS: HaloperidoL 5 MG TABLET 10 MG PO ×2 (08:40→20:01)
[2023-05-19 08:43] VITALS: RESP 18
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
[2023-05-19] MEDS: Divalproex Sodium ER 250 MG TAB.ER.24H 1750 MG PO (20:00)
[2023-05-20 08:00] VITALS: RESP 18
[2023-05-20] MEDS: HaloperidoL 5 MG TABLET 10 MG PO ×2 (09:05→20:09)
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
[2023-05-20] MEDS: Divalproex Sodium ER 250 MG TAB.ER.24H 1750 MG PO (20:08)
[2023-05-21 06:00] VITALS: RESP 18
[2023-05-21] MEDS: HaloperidoL 5 MG TABLET 10 MG PO ×2 (08:42→19:53)
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
[2023-05-21] MEDS: Divalproex Sodium ER 250 MG TAB.ER.24H 1750 MG PO (19:54)
[2023-05-22] MEDS: HaloperidoL 5 MG TABLET 10 MG PO ×2 (09:00→19:39)
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
[2023-05-22] MEDS: Divalproex Sodium ER 250 MG TAB.ER.24H 1750 MG PO (19:40)
[2023-05-22 19:57] VITALS: RESP 17
[2023-05-23 06:00] VITALS: RESP 18
[2023-05-23] MEDS: HaloperidoL 5 MG TABLET 10 MG PO ×2 (09:10→19:48)
[2023-05-23 10:37] LABS: MANUAL DIFF FLAG NO
[2023-05-23 10:38] LABS: Basophils Absolute Auto 0.1 X10*3/uL (0.0-0.2); Basophils Percent Auto 0.6 % (0-2); Eosinophils Absolute Auto 0.6 X10*3/uL (0.0-0.4); Eosinophils Percent Auto 5.4 % (0-4); Hematocrit 41.1 % (37.0-47.0); Hemoglobin 13.5 g/dl (12.0-16.0); Imm Gran Abs Auto 0.02 X10*3/uL (0.00-0.03); Imm Gran Pct Auto 0.2 % (0.0-0.4); Lymphocytes Absolute Auto 4.3 X10*3/uL (1.2-4.9); Mean Corpuscular HGB Conc 32.8 g/dl (31.0-35.0); Mean Corpuscular Hemoglobin 27.8 pg (27.0-33.0); Mean Corpuscular Volume 84.7 fL (80.0-98.0); Mean Platelet Volume 11.4 fL (9.4-12.3); Monocytes Absolute Auto 0.5 X10*3/uL (0.1-1.2); Monocytes Percent Auto 4.4 % (2-11); Neutrophils Absolute Auto 4.9 x10*3/uL (2.0-8.3); Neutrophils Percent Auto 47.4 % (45-73); Platelet Count 215 X10*3/uL (160-400); Red Blood Count 4.85 X10*6/uL (4.20-5.50); Red Cell Distribution Width 14.2 % (11.0-16.0); White Blood Count 10.3 X10*3/uL (4.8-10.8)
[2023-05-23 10:52] LABS: Ammonia 33 umol/L (13-55)
[2023-05-23 10:59] LABS: Valproate 79.9 mcg/mL (50.0-100.0)
[2023-05-23 11:03] LABS: Alanine Aminotransferase 14 U/L (0-31); Albumin Level 3.8 g/dL (3.5-5.0); Alkaline Phosphatase 84 U/L (39-117); Anion Gap 11 (12-20); Aspartate Amino Transferase 10 U/L (5-31); Bilirubin Direct < 0.2 mg/dL (0.0-0.5); Bilirubin Total 0.2 mg/dL (0.0-1.0); Blood Urea Nitrogen 14 mg/dL (9-16); Calcium 9.3 mg/dL (8.4-10.2); Carbon Dioxide 28 mmol/L (22-29); Chloride 103 mmol/L (96-108); Creatinine Clr Calc Pharmacy 93.7; Estimated Glomerular Filt Rate > 60; Glucose Random 134 mg/dL (60-115); Potassium 4.2 mmol/L (3.3-5.1); Sodium 138 mmol/L (135-145); Total Protein 6.5 g/dL (6.5-8.0)
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
[2023-05-23] MEDS: Divalproex Sodium ER 250 MG TAB.ER.24H 1750 MG PO (19:48)
[2023-05-24] MEDS: HaloperidoL 5 MG TABLET 10 MG PO ×2 (08:28→20:17)
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
[2023-05-24] MEDS: Divalproex Sodium ER 250 MG TAB.ER.24H 1750 MG PO (20:16)
[2023-05-25 08:00] VITALS: RESP 18
[2023-05-25] MEDS: HaloperidoL 5 MG TABLET 10 MG PO ×2 (09:16→19:51)
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
[2023-05-25] MEDS: Divalproex Sodium ER 250 MG TAB.ER.24H 1750 MG PO (19:52)
[2023-05-26 06:00] VITALS: RESP 16
[2023-05-26] MEDS: HaloperidoL 5 MG TABLET 10 MG PO ×2 (09:16→19:54)
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
[2023-05-26 16:10] VITALS: RESP 18
[2023-05-26] MEDS: Divalproex Sodium ER 250 MG TAB.ER.24H 1750 MG PO (19:54)
[2023-05-27 06:00] VITALS: RESP 16
[2023-05-27] MEDS: HaloperidoL 5 MG TABLET 10 MG PO ×2 (08:42→19:33)
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
[2023-05-27] MEDS: Divalproex Sodium ER 250 MG TAB.ER.24H 1750 MG PO (19:32)
[2023-05-28] MEDS: HaloperidoL 5 MG TABLET 10 MG PO ×2 (09:06→20:15)
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
[2023-05-28] MEDS: Divalproex Sodium ER 250 MG TAB.ER.24H 1750 MG PO (20:15)
[2023-05-29 06:00] VITALS: RESP 18
[2023-05-29] MEDS: HaloperidoL 5 MG TABLET 10 MG PO ×2 (09:10→20:15)
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
[2023-05-29 13:24] LABS: Ammonia 36 umol/L (13-55)
[2023-05-29 13:29] LABS: Valproate 90.6 mcg/mL (50.0-100.0)
[2023-05-29 13:48] LABS: Alanine Aminotransferase 14 U/L (0-31); Alkaline Phosphatase 83 U/L (39-117); Aspartate Amino Transferase 13 U/L (5-31); Bilirubin Direct < 0.2 mg/dL (0.0-0.5); Bilirubin Total 0.2 mg/dL (0.0-1.0); Total Protein 6.8 g/dL (6.5-8.0)
[2023-05-29 14:01] LABS: TSH reflex Free T4 2.28 uIU/mL (0.32-4.0)
[2023-05-29] MEDS: Divalproex Sodium ER 250 MG TAB.ER.24H 1750 MG PO (20:15)
[2023-05-30] MEDS: HaloperidoL 5 MG TABLET 10 MG PO ×2 (09:03→19:32)
[2023-05-30 09:04] VITALS: RESP 18
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
[2023-05-30] MEDS: Divalproex Sodium ER 250 MG TAB.ER.24H 1750 MG PO (19:32)
[2023-05-31 06:00] VITALS: RESP 16
[2023-05-31 07:00] VITALS: BMI 33.8
[2023-05-31] MEDS: HaloperidoL 5 MG TABLET 10 MG PO ×2 (08:58→20:17)
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
[2023-05-31] MEDS: Divalproex Sodium ER 250 MG TAB.ER.24H 1750 MG PO (20:16)
--- NOTE | 2023-06-01 | ECG_ITS ---
Test Reason : MEDICATION CK Blood Pressure : / mmHG Vent. Rate : 080 BPM Atrial Rate : 080 BPM P-R Int : 150 ms QRS Dur : 082 ms QT Int : 384 ms P-R-T Axes : 058 017 021 degrees QTc Int : 442 ms Normal sinus rhythm Nonspecific T wave abnormality Abnormal ECG When compared with ECG of 07-JUL-2022 09:22, No significant change was found Referred By: Josephine Perez Electronically Signed By:Lawrence Marquez
[2023-06-01 06:00] VITALS: RESP 16
[2023-06-01] MEDS: HaloperidoL 5 MG TABLET 10 MG PO (09:05)
== END 2023-06-01 10:40 | disposition home or self-care (01) | DRG 750 ==
LOC: HO.ED 04-25 07:50 → HO.PM5 04-25 16:00
PROVIDERS: Emergency Medicine; Social Worker; Student in an Organized Health Care Education/Training Program; Admitting Provider Psychiatry & Neurology Psychiatry; Emergency Provider Emergency Medicine Emergency Medical Services; Visit Provider Psychiatry & Neurology Psychiatry
DX: F25.0 Schizoaffective disorder, bipolar type (principal); U07.1 COVID-19; E03.9 Hypothyroidism, unspecified; F43.10 Post-traumatic stress disorder, unspecified; Z79.899 Other long term (current) drug therapy
CPT/HCPCS: 36415; 70450; 70486; 80048; 80053; 80076; 80164; 80307; 81001; 81025; 82140; 84443; 85025; 87635; 93005; 99285; J2060; J2359; S9485

== ENCOUNTER → 2023-04-17 22:46 | Outpatient (BNV) | payer MEDICAID, OTHER, SELFPAY | PROVIDERS: Emergency Provider Emergency Medicine; Visit Provider Social Worker | DX: F25.0 Schizoaffective disorder, bipolar type (principal); F43.11 Post-traumatic stress disorder, acute; E03.9 Hypothyroidism, unspecified | CPT/HCPCS: 90792; 99231; 99232; 99239; 99285 ==

== ENCOUNTER 2023-04-25 15:51 | Outpatient (BNV) | payer MEDICAID, SELFPAY | END 2023-06-01 10:08 | PROVIDERS: Admitting Provider Psychiatry & Neurology Psychiatry; Emergency Provider Emergency Medicine Emergency Medical Services; Visit Provider Internal Medicine Cardiovascular Disease | DX: R94.31 Abnormal electrocardiogram [ECG] [EKG] (principal) | CPT/HCPCS: 93010 ==

== ENCOUNTER → 2023-04-25 15:51 | Outpatient (BNV) | payer SELFPAY | PROVIDERS: Admitting Provider Psychiatry & Neurology Psychiatry; Emergency Provider Emergency Medicine Emergency Medical Services; Visit Provider Psychiatry & Neurology Psychiatry | DX: F25.0 Schizoaffective disorder, bipolar type (principal); F43.11 Post-traumatic stress disorder, acute; E03.9 Hypothyroidism, unspecified | CPT/HCPCS: 99231 ==

== ENCOUNTER → 2023-12-19 12:56 | Outpatient (BNVA) | payer MEDICARE, MEDICAID, SELFPAY | PROVIDERS: Visit Provider Surgery ==

== ENCOUNTER 2024-01-21 07:54 | Outpatient (AMB) | payer MEDICARE, MEDICAID, SELFPAY ==
--- NOTE | 2024-01-21 08:15 | MHC.OFFVISWM ---
VS Expanded 01/21/24 08:36 Height 5 ft 2.5 in Weight 263 lb BMI 47.3 Body Fat % 42.3 Body Fat Mass 111.2 Fat Free Mass 151.6 Visceral Fat Rating 14 Body Water % 41.2 Body Water Mass 108.2 Basal Metabolic Rate/Score 2,120 Intake Visit Reasons: TV Re-Est SWL BMI 47.3 Allergies Sulfa (Sulfonamide Antibiotics) [Sulfa (Sulfonamides)] Allergy (Unknown, Verified 01/21/24 08:15) RASH apples Allergy (Intermediate, Uncoded 01/21/24 08:15) Itching Medication List - Last Reconciled 01/21/24 by Larry Funes MD divalproex (Depakote) 1,500 mg PO ONCE haloperidol 5 mg PO BID lorazepam 0.5 mg PO BID PRN HPI HPI TV Re-Est SWL BMI 47.3: Details: Start time: 8.07am, End time: 8.44am ?I spent 32 minutes speaking with the patient on the phone plus an additional 5 minutes reviewing and updating records for a total of 37 minutes HPI Comments Details: Previous weight loss efforts: Atkins diet, Weight Watchers Wakes up: 8am, naps and wakes up: 10am, Sleeps: 10.30pm Breakfast: 8am Lunch: 1pm (sandwich) Dinner: 6pm (sandwich, burger) Snacks: 2 snacks between lunch and dinner (pretzels, half sandwich), 2 snacks after dinner (as afternoon) Exercise: none Has Gym membership Fluids: Coffee: 1 cup/day with cream, hot tea: 1 cup /day (plain), soda: diet coke, juice: none, ETOH: none PFSH Medical History Habitual snoring Anxiety Depression Hyperlipidemia Morbid obesity PTSD (post-traumatic stress disorder) LAURYN (generalized anxiety disorder) Molly's disease Bipolar 1 disorder Surgical History Hx laparoscopic cholecystectomy (10/12/22) Hx of wisdom tooth extraction Hx of section Family History (Updated 12/19/23 @ 13:58 by Leonard Melo RN) Mother No problems noted. Father Diabetes Hypertension FH: prostate cancer Brother No problems noted. Daughter No problems noted. Paternal Uncle Leukemia Social History Household Members: Unknown / Unable to assess Household Members Other:: 1 Housing: Unknown / Unable to assess Are you a primary childcare center director to a significant other at home: No Do you presently have visiting nurse or other home services: No Unable to assess alcohol history related to: Unknown Alcohol intake: never Patient Tobacco Use Status: Never used Tobacco Second Hand Smoke Exposure: No service: No Sexual orientation: Straight/Heterosexual Telehealth Telehealth Telehealth Platform: Telephone Location of provider rendering services: practice address Location of patient: address on file Patient Identification confirmed using: Name, : Yes Telehealth method: voice only Patient verbally consented to treatment: Yes Patient verbally consented to billing insurance company: Yes Patient informed of any privacy concerns related to visit: Yes Minutes spent on Phone/Video with Pt.: 37 Assessment & Plan Assessment & Plan (1) Morbid obesity: Code(s): E66.01 - Morbid (severe) obesity due to excess calories Category: Medical Plan: 1.? Plan for lap sleeve gastrectomy. If diaphragmatic or ventral hernias are present at time of surgery, these will be repaired laparoscopically as well. Risks and complications include possible conversion to an open procedure, anastomotic leak, bleeding requiring transfusion, small bowel obstruction, , DVT and pulmonary embolism, cardiac, or pulmonary complications, as color control operator complications such as anastomotic ulcer, insufficient weight loss and vitamin deficiencies. I emphasized the importance of close follow-up, adherence to instructions and good communication. 2. You will receive a link of our software choco to generate an individualized nutritional and exercise plan specific for you. Please send me a screenshot of the plans you will generate Meal to include lean meat (beef, fish, pork, turkey, chicken), or hong konger yogurt, or egg whites, or beans with a salad with olive oil and fruits (berries, pears, apples, kiwi). Avoid salt, breads, potatoes, rice, pasta, desserts. ?3. If you choose shakes, each shake would be drunk slowly, like coffee in a period of 2 hours. ?4. If you choose bars, cut each bar in 4 pieces and eat each piece in 30min ?to make each bar last 2 hours. ?5. I emphasized the importance of measuring accurately the food portion and measure it when serving the food in plate ?6. The meal portions include a specific number of forks of meat and salad. You always eat the meat portion but you can replace up to half of salad/vegetables portion with rice, potatoes or pasta, or a fruit ?if you like. The less you do it the better weight loss will be. ?7. One full-size fork is what it can be scooped on the fork without falling aside and not what can be bit with the fork. Use regular forks like those you find in a typical restaurant. ?8.? Please send me weight measurements as soon as possible and then once a week. Always include your diet and exercise plan. 9. The best choice would be to purchase a stationary bike, elliptical or treadmill at home that can track calories. Let me know if you do so I can give you an exercise plan. ?10.?It is important of avoiding and for at least 18 months postoperatively and has been discussed at the infosession. ?11. Goal is to lose at least 1.5-2lbs per week ?12. Goal to lose 10% of your weight before surgery, which is about 26lbs. Ultimate weight goal: 237lbs before surgery 13. Please follow the diet plan exactly without any change. If you don't like something about the plan or you feel hungry you need to communicate with me so I can help you revise the plan. You should not change the plan yourself. 14. To be scheduled for EGD to assess the anatomy of your stomach. The possibility of biopsies was discussed. Patient needs to avoid use of NSAIDs and aspirin for 1 week prior to EGD. Risks of perforation and bleeding was discussed with the patient. This will be an outpatient procedure with IV sedation. Orders: Orders Insulin Today E66.01 - Morbid (severe) obesity due to excess calories, E78.5 - Hyperlipidemia, unspecified, K76.0 - Fatty (change of) liver, not elsewhere classified Lipid Panel Today E66.01 - Morbid (severe) obesity due to excess calories, E78.5 - Hyperlipidemia, unspecified, K76.0 - Fatty (change of) liver, not elsewhere classified Comprehensive Met. Panel Today E66.01 - Morbid (severe) obesity due to excess calories, E78.5 - Hyperlipidemia, unspecified, K76.0 - Fatty (change of) liver, not elsewhere classified Vitamin B1 Today E66.01 - Morbid (severe) obesity due to excess calories, E78.5 - Hyperlipidemia, unspecified, K76.0 - Fatty (change of) liver, not elsewhere classified XR chest 2V Today E66.01 - Morbid (severe) obesity due to excess calories, E78.5 - Hyperlipidemia, unspecified, K76.0 - Fatty (change of) liver, not elsewhere classified ECG 12 lead EKG Today E66.01 - Morbid (severe) obesity due to excess calories, E78.5 - Hyperlipidemia, unspecified, K76.0 - Fatty (change of) liver, not elsewhere classified Hemoglobin A1c Today E66.01 - Morbid (severe) obesity due to excess calories, E78.5 - Hyperlipidemia, unspecified, K76.0 - Fatty (change of) liver, not elsewhere classified Complete Blood Count Auto Diff Today E66.01 - Morbid (severe) obesity due to excess calories, E78.5 - Hyperlipidemia, unspecified, K76.0 - Fatty (change of) liver, not elsewhere classified IRON PROFILE Today E66.01 - Morbid (severe) obesity due to excess calories, E78.5 - Hyperlipidemia, unspecified, K76.0 - Fatty (change of) liver, not elsewhere classified Vitamin B12 and Folate Today E66.01 - Morbid (severe) obesity due to excess calories, E78.5 - Hyperlipidemia, unspecified, K76.0 - Fatty (change of) liver, not elsewhere classified Zinc Today E66.01 - Morbid (severe) obesity due to excess calories, E78.5 - Hyperlipidemia, unspecified, K76.0 - Fatty (change of) liver, not elsewhere classified C Reactive Protein Today E66.01 - Morbid (severe) obesity due to excess calories, E78.5 - Hyperlipidemia, unspecified, K76.0 - Fatty (change of) liver, not elsewhere classified Vitamin A Today E66.01 - Morbid (severe) obesity due to excess calories, E78.5 - Hyperlipidemia, unspecified, K76.0 - Fatty (change of) liver, not elsewhere classified TSH reflex Free T4 Today E66.01 - Morbid (severe) obesity due to excess calories, E78.5 - Hyperlipidemia, unspecified, K76.0 - Fatty (change of) liver, not elsewhere classified Ferritin Today E66.01 - Morbid (severe) obesity due to excess calories, E78.5 - Hyperlipidemia, unspecified, K76.0 - Fatty (change of) liver, not elsewhere classified Vitamin D 25-OH Total Today E66.01 - Morbid (severe) obesity due to excess calories, E78.5 - Hyperlipidemia, unspecified, K76.0 - Fatty (change of) liver, not elsewhere classified Referrals Behavioral Health Referral E66.01 - Morbid (severe) obesity due to excess calories, E78.5 - Hyperlipidemia, unspecified, K76.0 - Fatty (change of) liver, not elsewhere classified Nutrition/Dietitian Referral E66.01 - Morbid (severe) obesity due to excess calories, E78.5 - Hyperlipidemia, unspecified, K76.0 - Fatty (change of) liver, not elsewhere classified
[2024-01-21 08:36] VITALS: BMI 47.3
== END 2024-01-21 08:45 | disposition home or self-care (01) ==
LOC: HO.HBS 07:54
PROVIDERS: Visit Provider Surgery
DX: E66.01 Morbid (severe) obesity due to excess calories (principal); Z68.42 Body mass index [BMI] 45.0-49.9, adult
CPT/HCPCS: 99443

== ENCOUNTER → 2024-01-21 07:54 | Outpatient (BNVA) | payer MEDICARE, MEDICAID, SELFPAY | PROVIDERS: Visit Provider Surgery ==

== ENCOUNTER 2024-01-25 13:29 | Outpatient (REF) | payer OTHER, SELFPAY ==
--- NOTE | ~2024-01-25 | XR_ITS ---
EXAMINATION: XR CHEST CLINICAL INFORMATION: E66.01 - Morbid (severe) obesity due to excess calories COMPARISON: 07/07/2022. TECHNIQUE: 2 views of the chest were obtained. FINDINGS: The cardiac, hilar, and mediastinal contours are normal. The lungs are clear bilaterally. There is no pneumothorax or pleural effusion. There is no focal osseous or soft tissue abnormality. XR/XR chest 2V IMPRESSION: Normal chest. Electronically signed by: Luke Zapata MD 04/06/2024 10:37 PM [facility] [place]
--- NOTE | 2024-01-25 13:34 | ECG_ITS ---
Test Reason : OBESITY Blood Pressure : / mmHG Vent. Rate : 077 BPM Atrial Rate : 077 BPM P-R Int : 148 ms QRS Dur : 082 ms QT Int : 378 ms P-R-T Axes : 054 009 047 degrees QTc Int : 427 ms Normal sinus rhythm Normal ECG When compared with ECG of 01-JUN-2023 10:08, No significant change was found Referred By: Larry Funes Electronically Signed By:JADEN WILSON
[2024-01-25 14:41] LABS: Basophils Absolute Auto 0.1 X10*3/uL (0.0-0.2); Basophils Percent Auto 0.5 % (0-2); Eosinophils Absolute Auto 0.2 X10*3/uL (0.0-0.4); Eosinophils Percent Auto 1.7 % (0-4); Hematocrit 40.3 % (37.0-47.0); Hemoglobin 13.7 g/dl (12.0-16.0); Imm Gran Abs Auto 0.03 X10*3/uL (0.00-0.03); Imm Gran Pct Auto 0.2 % (0.0-0.4); MANUAL DIFF FLAG SCAN; Mean Corpuscular Hemoglobin 31.3 pg (27.0-33.0); Mean Platelet Volume 10.6 fL (9.4-12.3); Monocytes Absolute Auto 0.6 X10*3/uL (0.1-1.2); Monocytes Percent Auto 4.5 % (2-11); Neutrophils Absolute Auto 3.2 x10*3/uL (2.0-8.3); Neutrophils Percent Auto 25.1 % (45-73); Platelet Count 252 X10*3/uL (160-400); Red Blood Count 4.38 X10*6/uL (4.20-5.50); Red Cell Distribution Width 13.6 % (11.0-16.0); SCAN SMEAR FLAG 1; White Blood Count 12.9 X10*3/uL (4.8-10.8)
[2024-01-25 14:42] LABS: Lymphocytes Absolute Auto 8.8 X10*3/uL (1.2-4.9)
[2024-01-25 14:55] LABS: Estimated Average Glucose 111 mg/dL; Hemoglobin A1c % 5.5 % (<6.0)
[2024-01-25 15:38] LABS: Alanine Aminotransferase 33 U/L (0-31); Albumin Level 4.1 g/dL (3.5-5.0); Alkaline Phosphatase 70 U/L (39-117); Anion Gap 12 (12-20); Aspartate Amino Transferase 17 U/L (5-31); Bilirubin Total 0.3 mg/dL (0.0-1.0); Blood Urea Nitrogen 9 mg/dL (9-16); C Reactive Protein 0.37 mg/dL (< or = 0.50); Calcium 9.4 mg/dL (8.4-10.2); Carbon Dioxide 27 mmol/L (22-29); Chloride 105 mmol/L (96-108); Cholesterol 240 mg/dL (<200); Estimated Glomerular Filt Rate > 60; Glucose Random 85 mg/dL (60-115); HDL Cholesterol 31 mg/dL (>40); Iron 104 mcg/dL (30-160); LDL Cholesterol Calculated 157 mg/dL (<100); Percent Iron Saturation 29 % (15-50); Potassium 4.4 mmol/L (3.3-5.1); Sodium 140 mmol/L (135-145); Total Iron Binding Capacity 357 mcg/dL (228-428); Total Protein 7.2 g/dL (6.5-8.0); Triglycerides 260 mg/dL (<150); Unsaturated Iron Binding 253 ug/dL
[2024-01-25 15:46] LABS: Ferritin 74 ng/mL (10-250); Insulin 17 uU/mL (2-29); TSH reflex Free T4 2.69 uIU/mL (0.32-4.0); Vitamin D 25-OH Total 25.8 ng/mL (>30)
[2024-01-25 15:58] LABS: Folate 10.5 ng/mL (> or = 4.0); Vitamin B12 599 pg/mL (200-900)
[2024-01-25 16:27] LABS: SLIDE REVIEW VERIFIED
[2024-01-29 05:08] LABS: Zinc 68 mcg/dL (60-130)
[2024-01-30 19:44] LABS: Vitamin A 67 mcg/dL (38-98)
[2024-02-03 07:38] LABS: Vitamin B1 15 nmol/L (8-30)
== END 2024-01-25 13:30 | disposition home or self-care (01) ==
LOC: HO.LAB 13:29
PROVIDERS: Visit Provider Surgery
DX: E66.01 Morbid (severe) obesity due to excess calories (principal); E78.5 Hyperlipidemia, unspecified; K76.0 Fatty (change of) liver, not elsewhere classified; Z13.1 Encounter for screening for diabetes mellitus
CPT/HCPCS: 36415; 71046; 80053; 80061; 82306; 82607; 82728; 82746; 83036; 83525; 83540; 84425; 84443; 84590; 84630; 85025; 86140; 93005

== ENCOUNTER → 2024-01-25 13:49 | Outpatient (BNV) | payer OTHER, SELFPAY | PROVIDERS: Visit Provider Radiology Diagnostic Radiology | DX: E66.01 Morbid (severe) obesity due to excess calories (principal) | CPT/HCPCS: 71046 ==

== ENCOUNTER → 2024-03-05 08:30 | Outpatient (BNV) | payer OTHER, SELFPAY | PROVIDERS: PCP Physician Assistant Medical; Visit Provider Internal Medicine | DX: R92.8 Other abnormal and inconclusive findings on diagnostic imaging of breast (principal) | CPT/HCPCS: 76642; 77066; G0279 ==

== ENCOUNTER 2024-03-05 08:41 | Outpatient (REF) | payer OTHER, SELFPAY ==
--- NOTE | ~2024-03-05 | MM_ITS ---
EXAMINATION: MM DIAGNOSTIC DIGITAL BREAST TOMOSYNTHESIS, left breast palpable lump bilateral mammogram for right annual screening. Left axillary ultrasound. CLINICAL INFORMATION: Left breast palpable lump in the left axilla. Right annual screening mammogram. COMPARISON: Mammography: Comparison is made with relevant prior exams. TECHNIQUE: Digital breast mammography with tomosynthesis is performed in both the craniocaudal and mediolateral oblique views along with computer-aided detection (CAD). FINDINGS: There are scattered areas of fibroglandular density (ACR BI-RADS breast composition Category b). Left: BB marker in left axilla with an underlying asymmetry. There are no significant masses, abnormal calcifications, or other abnormalities. Left axillary ultrasound: Targeted color Doppler ultrasound scanning in the left axilla demonstrates a normal-appearing axillary lymph node. At the area the patient's palpable lump there is an intradermal hypoechoic oval mass measuring 4 x 2 x 5 mm consistent with an intradermal epidermal inclusion cyst versus sebaceous cyst and is benign. Right: There are no significant masses, abnormal calcifications or other abnormalities. Results are provided to the patient at time of visit by the technologist. MM/MM tomosynthesis diagnostic BI IMPRESSION: Right: Negative. Left: Sebaceous cyst at the site of the patient's palpable lump in the left axilla. Benign. Recommend breast focal consultation for possible excision and clinical follow-up. ASSESSMENT: BI-RADS BI-RADS 2 - Benign Findings RECOMMENDATION: 1 year F/U This patient's information was entered into a reminder system with a target due date for their next mammogram. Electronically signed by: Amber Guevara DO 03/05/2024 09:39 AM EDT
== END 2024-03-05 08:42 | disposition home or self-care (01) ==
LOC: HO.MAMMO 08:41
PROVIDERS: PCP Physician Assistant Medical; Visit Provider Physician Assistant Medical
DX: N63.32 Unspecified lump in axillary tail of the left breast (principal)
CPT/HCPCS: 76642; 77062; 77066

== ENCOUNTER → 2024-04-11 13:10 | Outpatient (BNV) | payer OTHER, SELFPAY | PROVIDERS: PCP Physician Assistant Medical; Referring Provider Physician Assistant Medical; Visit Provider Internal Medicine Medical Oncology | DX: D72.829 Elevated white blood cell count, unspecified (principal) | CPT/HCPCS: 99204 ==

== ENCOUNTER 2024-05-14 09:42 | Outpatient (REF) | payer OTHER, SELFPAY ==
--- NOTE | ~2024-05-14 | US_ITS ---
CLINICAL HISTORY: early satiety,? HEPATOSPLENOMEGALY. Ultrasound of the abdomen Comparison: None Findings: The liver is enlarged, measuring 20.5cm. Increased without focal lesions. Normal flow is visualized within the portal vein. No intrahepatic biliary ductal dilatation. Status post cholecystectomy. No abnormality in the gallbladder fossa. The common bile duct is normal, measuring 0.4cm. Unremarkable limited evaluation of the pancreas. The right kidney is normal in echogenicity and size, measuring 12.7cm. No nephrolithiasis or hydronephrosis. The left kidney is normal echogenicity and size, measuring 11.2cm. No nephrolithiasis or hydronephrosis. The spleen is without focal lesions and the upper limit of normal size, measuring 11.9cm. There is a splenule measuring 1.8 x 1.6 x 1.6 cm. The aorta and IVC are unremarkable. No ascites. Impression: Hepatomegaly with hepatic steatosis. This document has been electronically signed by: Monet Ferreira MD on 05/15/2024 14:31:50
== END 2024-05-14 09:43 | disposition home or self-care (01) ==
LOC: HO.HMGCX 09:42
PROVIDERS: PCP Physician Assistant Medical; Visit Provider Internal Medicine Medical Oncology
DX: C91.10 Chronic lymphocytic leukemia of B-cell type not having achieved remission (principal); K76.0 Fatty (change of) liver, not elsewhere classified
CPT/HCPCS: 76700

== ENCOUNTER → 2024-05-14 09:49 | Outpatient (BNV) | payer OTHER, SELFPAY | PROVIDERS: PCP Physician Assistant Medical; Visit Provider Radiology Diagnostic Radiology | DX: R68.81 Early satiety (principal) | CPT/HCPCS: 76700 ==

== ENCOUNTER 2024-08-11 07:55 | Outpatient (AMB) | payer OTHER, SELFPAY ==
--- NOTE | 2024-08-11 08:15 | MHC.OFFVIS ---
Vital Signs 08/11/24 08:20 Height 5 ft 2 in Weight 265 lb BMI 48.5 BP 132/75 Blood Pressure Location Lt brachial Position Sitting Pulse 77 Intake Visit Reasons: Dyspepsia, early satiety. Dr. Leal Pt. Intake Note: Patient new consult for dyspepsia and early satiety/Dr. Leal. Patient cc: abdominal bloating, early satiety, acid reflex with burning sensation. Denies any other GI issues. Credit Card Control Clerk Required: No Accompanied by: Self / Same As Patient Allergies Sulfa (Sulfonamide Antibiotics) [Sulfa (Sulfonamides)] Allergy (Unknown, Verified 08/11/24 08:14) RASH apples Allergy (Intermediate, Uncoded 06/10/24 10:07) Itching Medication List - Last Reconciled 08/11/24 by CARMINA MaeP- divalproex (Depakote) 1,500 mg PO ONCE haloperidol 5 mg PO BID lorazepam 0.5 mg PO BID PRN [id number] oil 350-400 mg 350 caps PO DAILY tirzepatide (weight loss) (Zepbound) 2.5 mg subcut QWEEK HPI HPI Dyspepsia, early satiety. Dr. Leal Pt.: Details: 23-year-old female with past medical history of leukocytosis, vitamin B deficiency, bipolar, nonalcoholic fatty liver, status post cholecystectomy, anxiety, depression, hyperlipidemia, obesity, PTSD is here today for initial consultation. Patient was sent to us by her youth probation officer. Patient has been experiencing symptoms of epigastric discomfort and burning in upper esophagus after anything she eats. Patient reports experiencing those symptoms even when drinking water. Patient denies any nausea or vomiting. Reports occasional dyspepsia without dysphagia or odynophagia. Patient was on Wegovy, currently on Zepbound, however she will be switching back to ago he again. She is trying to lose weight. Patient was on a GLP 1 little over 4 months, however her symptoms started long before. Patient also reports abdominal bloating postprandially. Reports that she is moving her bowels daily and feels like she empties her bowels well. Patient denies melena, hematochezia, unintentional weight loss or ribbon like stools. [facility] Medical History Vitamin D deficiency Habitual snoring Anxiety Depression Hyperlipidemia Morbid obesity PTSD (post-traumatic stress disorder) LAURYN (generalized anxiety disorder) Molly's disease Bipolar 1 disorder Surgical History Hx laparoscopic cholecystectomy (10/12/22) Hx of wisdom tooth extraction Hx of section Family History Mother No problems noted. Father Diabetes Hypertension FH: prostate cancer Brother No problems noted. Daughter No problems noted. Paternal Uncle Leukemia Social History Household Members: Unknown / Unable to assess Household Members Other:: 1 Housing: Unknown / Unable to assess Are you a primary transitions rn care coordinator to a significant other at home: No Do you presently have visiting nurse or other home services: No Unable to assess alcohol history related to: Unknown Alcohol intake: never Patient Tobacco Use Status: Never used Tobacco Second Hand Smoke Exposure: No service: No Current occupational status: unemployed and disabled Sexual orientation: Straight/Heterosexual Review of Systems Const Denies weight gain and Denies weight loss ENT Reports no additional complaints, Denies dysphagia and Denies odynophagia Card Reports no additional complaints Resp Reports no additional complaints GI Denies abdominal pain, Denies belching, Denies melena, Reports bloating, Denies change in bowel habits, Denies dysphagia, Denies excessive flatus, Reports dyspepsia, Reports heartburn, Denies diarrhea, Denies loose stools, Denies nausea, Denies odynophagia and Denies vomiting Reports no additional complaints Musc Reports no additional complaints Neuro Reports no additional complaints Psych Reports no additional complaints Endo Reports no additional complaints Physical Exam Const General: healthy appearing and no acute distress Nutritional Appearance: obese Orientation/consciousness: patient oriented x3 Resp Effort & Inspection: normal respiratory effort, able to speak in complete sentences, no tracheal deviation and symmetric chest movement Auscultation: clear to auscultation bilaterally Cardio Rate: regular rate GI Inspection: Yes normal to inspection, No distended and Yes obesity Palpation (GI): Soft to palpation, not firm, nontender and No hepatosplenomegaly present Auscultation: normal bowel sounds General: Yes no CVA tenderness Back/Spine/Pelvis Back: no CVA tenderness Skin General skin exam: elasticity normal, turgor normal and dry skin Neuro General: patient oriented x3 Psych Appearance: grossly normal Mental Status: mental status grossly normal Assessment & Plan Assessment & Plan (1) GERD (gastroesophageal reflux disease): Code(s): K21.9 - Gastro-esophageal reflux disease without esophagitis Qualifiers: Esophagitis presence: esophagitis presence not specified Qualified Code(s): K21.9 - Gastro-esophageal reflux disease without esophagitis (2) Postprandial abdominal bloating: Code(s): R14.0 - Abdominal distension (gaseous) (3) Dyspepsia: Code(s): R10.13 - Epigastric pain Plan Patient will start taking omeprazole 20 mg daily. Avoid dietary triggers and late night snacking. Staying upright for minimum 3 hours after meals discussed with patient. Will check transglutaminase, vitamin-D, B12, folate, thyroid study. Will send her for upper GI with barium swallow. Discussed with patient low FODMAP diet. List of food recommended as well as list of food to avoid given to patient. Patient will return in 3 months we will discuss going for upper endoscopy and colonoscopy. Patient never had colonoscopy in the past. Denies any family history of CRC. Patient is agreeable to plan of care verbalizes understanding of instructions. She was given the opportunity to ask questions and all questions answered. Thank you for allowing me to participate in her care Orders: Orders FL upper GI w Ba Swallow Today K21.9 - Gastro-esophageal reflux disease without esophagitis Transglutaminase IgA Today R10.9 - Unspecified abdominal pain TSH reflex Free T4 Today K59.00 - Constipation, unspecified Vitamin D 25-OH (D2 and D3) Today E55.9 - Vitamin D deficiency, unspecified Vitamin B12 and Folate Today R19.7 - Diarrhea, unspecified Medications: New omeprazole 20 mg PO DAILY 30 caps 3RF K21.9 - Gastro-esophageal reflux disease without esophagitis Coding Level of Care Code New Pt Level 3 (90278) Diagnoses Gastroesophageal reflux disease, unspecified whether esophagitis present K21.9 Esophagitis presence: esophagitis presence not specified Postprandial abdominal bloating R14.0 Dyspepsia R10.13 Time Spent (min) 40 Comment 30 minutes spent with patient and additional 10 minutes spent reviewing her records
[2024-08-11 08:20] VITALS: BP 132/75; PULSE 77; BMI 48.5
== END 2024-08-11 08:34 | disposition home or self-care (01) ==
LOC: HO.HGI 07:55
PROVIDERS: PCP Physician Assistant Medical; Visit Provider Nurse Practitioner Family
DX: K21.9 Gastro-esophageal reflux disease without esophagitis (principal); R14.0 Abdominal distension (gaseous); R10.13 Epigastric pain
CPT/HCPCS: 99203

== ENCOUNTER 2024-08-11 07:55 | Outpatient (REF) | payer OTHER, SELFPAY ==
[2024-08-11 10:04] LABS: Estimated Average Glucose 114 mg/dL; Hemoglobin A1C 138.0738 umol/L; Hemoglobin A1c % 5.6 % (<6.0); Total Hemoglobin (HGBA1C) 3664.9711 umol/L
[2024-08-11 10:40] LABS: Valproate 106.8 mcg/mL (50.0-100.0)
[2024-08-11 10:50] LABS: Alanine Aminotransferase 44 U/L (0-31); Albumin Level 4.2 g/dL (3.5-5.0); Alkaline Phosphatase 69 U/L (39-117); Anion Gap 12 (12-20); Aspartate Amino Transferase 22 U/L (5-31); Bilirubin Total 0.2 mg/dL (0.0-1.0); Blood Urea Nitrogen 10 mg/dL (9-16); Calcium 8.7 mg/dL (8.4-10.2); Carbon Dioxide 25 mmol/L (22-29); Chloride 106 mmol/L (96-108); Estimated Glomerular Filt Rate > 60; Glucose Random 86 mg/dL (60-115); Potassium 4.2 mmol/L (3.3-5.1); Sodium 139 mmol/L (135-145); Total Protein 6.8 g/dL (6.5-8.0)
[2024-08-11 10:58] LABS: Thyroid Stimulating Hormone 3.69 uIU/mL (0.32-4.0)
[2024-08-11 11:03] LABS: TSH reflex Free T4 3.54 uIU/mL (0.32-4.0)
[2024-08-11 11:11] LABS: Folate 5.8 ng/mL (> or = 4.0); Vitamin B12 649 pg/mL (200-900)
[2024-08-12 22:44] LABS: Transglutaminase IgA <1.0 U/mL
[2024-08-15 15:03] LABS: Vitamin D 25-OH, D2 <4 ng/mL; Vitamin D 25-OH, D3 19 ng/mL; Vitamin D 25-OH, Total 19 ng/mL (30-100)
== END 2024-08-11 07:56 | disposition home or self-care (01) ==
LOC: HO.LAB 07:55
PROVIDERS: Absent Provider Psychiatry & Neurology Psychiatry; PCP Physician Assistant Medical; Visit Provider Nurse Practitioner Family
DX: F31.12 Bipolar disorder, current episode manic without psychotic features, moderate (principal); Z13.220 Encounter for screening for lipoid disorders; K59.00 Constipation, unspecified; E55.9 Vitamin D deficiency, unspecified; R19.7 Diarrhea, unspecified; R14.0 Abdominal distension (gaseous); R10.13 Epigastric pain; Z13.6 Encounter for screening for cardiovascular disorders; Z13.1 Encounter for screening for diabetes mellitus
CPT/HCPCS: 36415; 80053; 80164; 82306; 82607; 82746; 82947; 83036; 83718; 84443; 84478; 86364; 99202

== ENCOUNTER 2024-12-04 10:54 | Outpatient (REF) | payer OTHER, SELFPAY | END 2024-12-04 10:55 | disposition home or self-care (01) | LOC: HO.LAB 10:54 | PROVIDERS: PCP Physician Assistant Medical; Visit Provider Psychiatry & Neurology Psychiatry | DX: F31.12 Bipolar disorder, current episode manic without psychotic features, moderate (principal) | CPT/HCPCS: 36415; 80164 ==

== ENCOUNTER 2024-12-23 10:28 | Outpatient (REF) | payer OTHER, SELFPAY ==
[2024-12-23 11:06] LABS: Hematocrit 39.2 % (37.0-47.0); Hemoglobin 13.2 g/dl (12.0-16.0); Imm Gran Abs Auto 0.04 X10*3/uL (0.00-0.03); Imm Gran Pct Auto 0.2 % (0.0-0.4); MANUAL DIFF FLAG SCAN; Mean Corpuscular HGB Conc 33.7 g/dl (31.0-35.0); Mean Corpuscular Hemoglobin 30.2 pg (27.0-33.0); Mean Corpuscular Volume 89.7 fL (80.0-98.0); NRBC Abs Auto 0.000 X10*3/uL (0.0-0.012); NRBC Pct Auto 0.0 /100WBC (0.0-0.2); Platelet Count 198 X10*3/uL (160-400); Red Blood Count 4.37 X10*6/uL (4.20-5.50); SCAN SMEAR FLAG 1; White Blood Count 18.9 X10*3/uL (4.8-10.8)
[2024-12-23 11:12] LABS: Lymphocytes Absolute Auto 13.9 X10*3/uL (1.2-4.9)
[2024-12-23 11:16] LABS: Alanine Aminotransferase 28 U/L (0-31); Albumin Level 4.3 g/dL (3.5-5.0); Alkaline Phosphatase 62 U/L (39-117); Anion Gap 12 (12-20); Aspartate Amino Transferase 17 U/L (5-31); Blood Urea Nitrogen 11 mg/dL (9-16); Calcium 9.1 mg/dL (8.4-10.2); Carbon Dioxide 29 mmol/L (22-29); Chloride 102 mmol/L (96-108); Estimated Glomerular Filt Rate > 60; Potassium 4.4 mmol/L (3.3-5.1); Sodium 139 mmol/L (135-145); Total Protein 6.8 g/dL (6.5-8.0)
== END 2024-12-23 10:29 | disposition home or self-care (01) ==
LOC: HO.LAB 10:28
PROVIDERS: Absent Provider Psychiatry & Neurology Psychiatry; PCP Physician Assistant Medical; Visit Provider Internal Medicine Medical Oncology
DX: F31.12 Bipolar disorder, current episode manic without psychotic features, moderate (principal); D72.829 Elevated white blood cell count, unspecified
CPT/HCPCS: 36415; 80053; 80164; 85025

== ENCOUNTER 2025-02-23 09:49 | Outpatient (REF) | payer OTHER, SELFPAY ==
--- NOTE | ~2025-02-23 | FL_ITS ---
EXAMINATION: XR UPPER GI SERIES WITH BARIUM SWALLOW CLINICAL INFORMATION: Upper abdominal pain. Gastroesophageal reflux disease. COMPARISON: Upper GI double contrast study 09/01/2022 TECHNIQUE: Routine upper GI air contrast study in upright and lying position was performed. FINDINGS: Following oral administration of thick barium and effervescent granules there is normal propagation of bolus from the oral cavity through the pharynx, esophagus into stomach without obstruction, narrowing or stricture. No intraluminal filling defect or extrinsic compression seen. On placing patient supine and prone lying, the course, caliber and peristalsis of the stomach, duodenal bulb and sweep is normal. Mild increased gastric secretions are noted. The mucosal pattern of stomach, duodenal bulb and the sweep is normal. There is a large gastroesophageal reflux into the upper esophagus with a small sliding hiatal hernia FLUOROSCOPY TIME: 2 minutes and 20 seconds DOSE AREA PRODUCT: 3253 uGy-m2 (microgray-meter squared) FL/FL upper GI w air w Ba Swallow IMPRESSION: Unremarkable upper GI air contrast study Electronically signed by: Bryce Jamison MD 02/23/2025 12:39 PM EDT
== END 2025-02-23 09:50 | disposition home or self-care (01) ==
LOC: HO.XRAY 09:49
PROVIDERS: PCP Physician Assistant Medical; Visit Provider Nurse Practitioner Family
DX: K21.9 Gastro-esophageal reflux disease without esophagitis (principal)
CPT/HCPCS: 74246

== ENCOUNTER → 2025-02-23 09:51 | Outpatient (BNV) | payer OTHER, SELFPAY | PROVIDERS: PCP Physician Assistant Medical; Visit Provider Radiology Diagnostic Radiology | DX: K21.9 Gastro-esophageal reflux disease without esophagitis (principal) | CPT/HCPCS: 74246 ==

== ENCOUNTER 2025-03-16 15:38 | Outpatient (REF) | payer OTHER, SELFPAY ==
--- NOTE | ~2025-03-16 | MM_ITS ---
EXAMINATION: MM SCREENING DIGITAL BREAST TOMOSYNTHESIS, BILATERAL CLINICAL INFORMATION: Screening. Asymptomatic. COMPARISON: March 05, 2024 and August 11, 2022. TECHNIQUE: Digital breast tomosynthesis is performed in mediolateral oblique and craniocaudal views along with computer-aided detection (CAD). Synthesized 2D images are generated from the tomosynthesis. FINDINGS: BREAST COMPOSITION: There are scattered areas of fibroglandular density. BILATERAL BREASTS: No significant masses, suspicious calcifications or other abnormalities are seen in either breast. MM/MM tomosynthesis screening BI IMPRESSION: BILATERAL BREASTS: Negative, no mammographic evidence of malignancy. Normal interval follow-up is recommended in 12 months. ASSESSMENT: BI-RADS: Category 1: Negative RECOMMENDATION: Routine annual mammography screening. FOLLOW-UP: 1 year F/U This examination should not preclude the clinical evaluation of a suspicious palpable abnormality. This patient's information was entered into a reminder system with a target due date for their next mammogram. Electronically signed by: Chely Fisher MD 03/17/2025 10:03 PM [facility]
--- OUTSIDE RECORDS SUMMARY | 2025-03-16 17:42 | XMS_ITS | Clinical Summary ---
Author Organization [address] [facility] Address [address] [place] [address] Phone Care Team Providers Care Microbiology Lab Technician Name Role Phone Nicci Moyer MD Primary Care Provider [phone] Social History Tobacco Use Types Packs/Day Years Used Date Smoking Tobacco: Never Assessed Comments Unknown Sex and Gender Information Value Date Recorded Sex Assigned at Not on file Legal Sex Female 5:49 PM EST Gender Identity Not on file Sexual Orientation Not on file Plan of Treatment Upcoming Encounters Date Type Department Care Team ([facility] Contact Info) Description 03/23/2025 11:00 AM EST Office Visit Bariatric Surgery - [place] [address] [facility] [address] [place] [address] Nancy Cline MD [address] [place] [phone] Health Maintenance Due Date Last Done Comments Breast Cancer Screening 1978 Colorectal Cancer Screening: Colonoscopy 1978 DTaP,Tdap,and Td Vaccines (1 - Tdap) 1997 Hepatitis B Vaccines (1 of 3 - 19+ 3-dose series) 1997 Cervical Cancer Screening: P ap Smear 09/25/1999 Depression Screening 05/07/2024 HIV Screening 10/28/2024 Hepatitis C Screening 10/28/2024 Social Influencers of Health Screening 10/28/2024 COVID-19 Vaccine ( - 2023-2 5 season) 2025 Influenza Vaccine (#1) 2025 RSV Immunization Adult Patie nts (1 - 1-dose 75+ series) 2053 HIB Vaccines Aged Out No longer eligi ble based on patient's age to complete this topic HPV Vaccines Aged Out No longer eligi ble based on patient's age to complete this topic Hepatitis A Vaccines Aged Out No long er eligible based on patient's age to complete this topic IPV Vaccines Aged Out No longer eligi ble based on patient's age to complete this topic MMR Vaccines Aged Out No longer eligi ble based on patient's age to complete this topic Meningococcal ACWY Vaccine Aged Out N o longer eligible based on patient's age to complete this topic Meningococcal B Vaccine Aged Out No l onger eligible based on patient's age to complete this topic Pneumococcal Vaccine: Pediat rics (0 to 5 Years) and At-Risk Patients (6 to 49 Years) Aged Out No longer eligible b ased on patient's age to complete this topic RSV Immunization Patients Un guillermina 20 months Aged Out No longer eligible b ased on patient's age to complete this topic Varicella Vaccines Aged Out No longer eligible based on patient's age to complete this topic Insurance MEDICAID - [place] Care Teams Microbiology Lab Technician Relationship Specialty Start Date End Date Nicci Moyer MD [address] [place] [address] PCP - General Internal Medicine 06/03/13
== END 2025-03-16 15:39 | disposition home or self-care (01) ==
LOC: HO.MAMMO 15:38
PROVIDERS: PCP Physician Assistant Medical; Visit Provider Physician Assistant Medical
DX: Z12.31 Encounter for screening mammogram for malignant neoplasm of breast (principal)
CPT/HCPCS: 77063; 77067

== ENCOUNTER → 2025-03-16 16:15 | Outpatient (BNV) | payer OTHER, SELFPAY | PROVIDERS: PCP Physician Assistant Medical; Visit Provider Radiology Body Imaging | DX: Z12.31 Encounter for screening mammogram for malignant neoplasm of breast (principal) | CPT/HCPCS: 77063; 77067 ==